=== PATIENT | male | born 1960 | race Caucasian/White ===

== ENCOUNTER 2018-03-22 23:42 | Inpatient (IN) ==
[2018-03-22] MEDS ORDERED: VANCOMYCIN IVPB ONE (23:57)
[2018-03-22] MEDS ORDERED: SODIUM CHLORIDE 0.9% IVPB ONE (23:57)
[2018-03-22] MEDS ORDERED: Piperacillin/Tazobactam 3.375 GM in 0.9 % Sodium Chloride Mini Bag 100 ML IVPB ONE (23:58)
--- NOTE | 2018-03-22 23:58 | Emergency Department Note ---
Disposition Clinical Impression: Bilateral lower leg cellulitis Disposition: Admitted As Inpatient Condition: Good Time of Disposition: 01:42 Extremity Problem HPI - General Chief complaint: ED Skin/Abscess/Foreign Body Stated complaint: "Cellulitis Bilat Legs" Time Seen by Provider: 03/22/18 23:43 Source: patient Mode of arrival: ambulatory Limitations: no limitations Nursing Notes Reviewed: Yes Vital Signs Reviewed: Yes - History of Present Illness HPI Narrative: Patient is a 57-year-old male with recently diagnosed March of any cellulitis. He states that 10 days ago, he started developing redness around the left ankle that spread up the leg. He now has redness on bilateral lower extremities. He was seen at outside facility and was prescribed Bactrim and Keflex. He is taking both of these for around 3 days with no improvement. He did not miss any doses. He was seen by his primary care physician a few days ago and was switched to clindamycin. Is also placed on Lasix. He states that his lower extremity redness, swelling, pain is increasing. Redness has now extended up to his left thigh. Again, he has not missed any doses of clindamycin that he was switched to. Denies any other nausea, vomiting, fevers, diarrhea, abdominal pain, chest pain, shortness of breath. He does note that he had 2 different ultrasounds of bilateral lower extremity is within the past week that were negative for DVT. Pain Scale: 4 - Related Data Home Medications Medication Instructions Recorded Confirmed Budesonide/Formoterol 160/4.5 2 puff IH BIDR 03/23/18 03/23/18 [Symbicort 160/4.5] Ferrous Sulfate [Iron] 325 mg PO DAILY 03/23/18 03/23/18 Furosemide [Lasix] 40 mg PO DAILY 03/23/18 03/23/18 Losartan [Cozaar] 50 mg PO DAILY 03/23/18 03/23/18 Montelukast [Singulair] 10 mg PO DAILY 03/23/18 03/23/18 Omeprazole [PriLOSEC] 20 mg PO DAILY 03/23/18 03/23/18 Potassium Chloride [Klor-Con 10 meq PO DAILY 03/23/18 03/23/18 Sprinkle] Allergies Allergy/AdvReac Type Severity Reaction Status Date / Time No Known Allergies Allergy Verified 11/27/15 22:29 All systems ED: reviewed and negative except as stated. Constitutional: Denies: fever Cardiovascular: Denies: chest pain Respiratory: Denies: cough, dyspnea Gastrointestinal: Denies: abdominal pain, nausea, vomiting Integumentary: Reports: rash Past Medical History - Past Medical History Attestation: Yes The following information was validated with the patient. Medical history: Reports: COPD, hypertension, other Surgical history: Reports: other Psychiatric history: Reports: no psych history - Social History Smoking Status: Never smoker Smokeless Tobacco Status: No Alcohol use: Reports: none Drug use: Reports: none Physical Exam - General Limitations: no limitations General appearance: alert, in no apparent distress - Head Head exam: atraumatic, normocephalic, normal inspection - Eye Eye exam: Present: normal appearance, PERRL, EOMI - ENT ENT exam: normal exam, normal oropharynx, mucous membranes moist - Neck Neck exam: Present: normal inspection, full ROM, trachea midline - Chest Chest inspection: Present: normal inspection, symmetric chest wall rise - Respiratory Respiratory exam: Present: normal lung sounds bilaterally - Cardiovascular Cardiovascular exam: Present: regular rate, normal rhythm, normal heart sounds - Abdominal Exam Abdominal exam: Present: soft, Non-Tender. Absent: tenderness, distention, guarding, rebound, rigidity - Extremities Exam Extremities exam: Present: other (Erythema of bilateral lower extremities; redness extends from toes to distal thigh on left, and toes to mid calf on RLE. There is also some mild weeping on right lower extremity. No Tenderness bilaterally. One small area of 1 cm x 1 cm scabbing on the left anterior wood. No other lesions appreciated on the rest of the lower extremity.) Course Course Narrative: Currently concerned for cellulitis of bilateral lower extremities that is not improving with outpatient antibiotics. We will obtain CBC, BMP, cultures, lactic acid. We will start vancomycin and Zosyn empirically. 01:41 CBC shows no elevation white blood cell count. BMP shows no major abnormalities. Patient was accepted by hospitalist for further care at this time. Vital Signs Temperature 98.1 F 03/22/18 23:43 Pulse Rate 94 03/22/18 23:43 Respiratory Rate 20 03/22/18 23:43 Blood Pressure 188/106 03/22/18 23:43 O2 Sat by Pulse Oximetry 96 03/22/18 23:43 Temperature 98.3 F 03/23/18 02:27 Pulse Rate 81 03/23/18 02:27 Respiratory Rate 15 03/23/18 02:27 Blood Pressure 153/92 03/23/18 02:27 O2 Sat by Pulse Oximetry 97 03/23/18 02:27 Oxygen Delivery Oxygen Delivery Room Air Extremity Problem, Nontraumati - MDM Narrative Medical decision making narrative: Currently concerned for cellulitis of bilateral lower extremities that is not improving with outpatient antibiotics. We will obtain CBC, BMP, cultures, lactic acid. We will start vancomycin and Zosyn empirically. 01:41 CBC shows no elevation white blood cell count. BMP shows no major abnormalities. Patient was accepted by hospitalist for further care at this time. - Medical Records Medical records reviewed: Yes I reviewed the patient's medical records. - Lab Data Lab results reviewed: Yes I reviewed the patient's lab results. Result diagrams: 03/23/18 00:05 03/23/18 00:05 Lab Results 03/23/18 03/23/18 03/23/18 Range/Units 00:05 00:05 00:05 WBC 10.1 (4.3-11.1) K/mcL RBC 4.48 (4.19-5.50) M/mcL Hgb 12.3 L (12.9-16.9) g/dL Hct 36.3 L (37.5-50.1) % MCV 81.0 L (83.0-100.0) fL MCH 27.5 L (28.0-33.3) pg MCHC 33.9 (31.6-35.5) g/dL RDW 14.7 H (11.5-14.5) % Plt Count 373 (140-400) K/mcL MPV 9.7 (9.4-12.4) fL Immature Gran % 1.5 (0-4) % Seg Neutrophils % 59.7 % Lymphocytes % 21.6 % Monocytes % 11.5 % Eosinophils % 5.2 % Basophils % 0.5 % Neutrophils # 6.1 (1.6-8.9) K/mcL Lymphocytes # 2.2 (0.6-4.6) K/mcL Monocytes # 1.2 (0.0-1.3) K/mcL Eosinophils # 0.5 (0.0-0.6) K/mcL Basophils # 0.1 (0.0-0.2) K/mcL Sodium 139 (136-145) mEq/L Potassium 3.6 (3.5-5.1) mEq/L Chloride 104 (98-107) mEq/L Carbon Dioxide 27 (23-29) mEq/L BUN 10 (6-20) mg/dL Creatinine 0.84 (0.70-1.30) mg/dL Est GFR ( Amer) > 60 (> 60) Est GFR (Non-Af Amer) > 60 (> 60) BUN/Creatinine Ratio 12 (6-26) Glucose 131 H (70-105) mg/dL Calculated Osmolality 289 (280-300) Lactic Acid 2.1 (0.5-2.2) mmol/L Calcium 8.9 (8.6-10.3) mg/dL S.B.A.R. - S.B.A.R. Situation: Demographics, MOA Background: Presenting Complaint, Relevant PMH, Meds, & Allergies Assessment: Vital Signs, Course and respsone to treatment, Exam Concerns, Patient/Family Expectation, Pertinant Lab Results Recommendation: Barrier(s) to disposition, Recommendation based on pending studies, treatments, or consults S.B.A.R. Report Given to: Dr. Grigsby Attestation Statement - Attestation Attestation: I examined this patient and my medical decision-making was reviewed with the Resident Physician. I agree with the documented findings, disposition and treatment plan as described except to the extent set forth below. Findings consistent with cellulitis of lower extremities. Patient has progressively worsening cellulitis despite outpatient management. We will start vancomycin and Zosyn admit for further management. X-ray shows no signs of gas.
[2018-03-23 00:20] LABS: Basophils # 0.1 K/mcL (0.0-0.2); Basophils % 0.5 %; Eosinophils # 0.5 K/mcL (0.0-0.6); Eosinophils % 5.2 %; Hematocrit 36.3 % (37.5-50.1); Hemoglobin 12.3 g/dL (12.9-16.9); Immature Granulocytes % 1.5 % (0-4); Lymphocytes # 2.2 K/mcL (0.6-4.6); Lymphocytes % 21.6 %; Mean Corpuscular HGB Conc 33.9 g/dL (31.6-35.5); Mean Corpuscular Hemoglobin 27.5 pg (28.0-33.3); Mean Platelet Volume 9.7 fL (9.4-12.4); Monocytes # 1.2 K/mcL (0.0-1.3); Monocytes % 11.5 %; Neutrophils # 6.1 K/mcL (1.6-8.9); Platelet Count 373 K/mcL (140-400); Red Blood Count 4.48 M/mcL (4.19-5.50); Red Cell Distribution Width 14.7 % (11.5-14.5); Segmented Neutrophils % 59.7 %
[2018-03-23 00:38] LABS: BUN/Creatinine Ratio 12 (6-26); Blood Urea Nitrogen 10 mg/dL (6-20); Calcium 8.9 mg/dL (8.6-10.3); Carbon Dioxide 27 mEq/L (23-29); Chloride 104 mEq/L (98-107); Glucose 131 mg/dL (70-105); Osmolality,Calculated 289 (280-300); Potassium 3.6 mEq/L (3.5-5.1); Sodium 139 mEq/L (136-145); eGFR For African Americans > 60 (> 60); eGFR For Non-African Americans > 60 (> 60)
[2018-03-23] MEDS ORDERED: 0.9 % Sodium Chloride 1,000 ML IVC ONE (01:16)
[2018-03-23] MEDS ORDERED: Naloxone 0.4 MG/ML INJ IVP PRN (01:35)
[2018-03-23] MEDS ORDERED: *HR* Dextrose 50 % in Water (Syg) 50 ML SYRINGE IVP PRN (01:39)
[2018-03-23] MEDS ORDERED: Dextrose Gel 15 GM/37.5 ML TUBE PO PRN ×2 (01:39)
[2018-03-23] MEDS ORDERED: D5% in Water 1,000 ML IVC PRN (01:39)
--- NOTE | 2018-03-23 01:41 | Internal Med History&Physical ---
Date of Encounter: 03/23/18 Time of Encounter: 01:39 Internal Medicine - H&P: HPI Chief complaint: Lower extremity swelling Admitted From: Emergency Dept Plans for Post Hospital Care: Home History of present illness: Mr. Baca is a 57 year old male with history of obesity, hypertension, prediabetes, and asthma who presents with worsening lower extremity edema and redness. The patient was diagnosed with lower extremity cellulitis about 10 days ago and has been through a couple courses of antibiotics including Bactrim , Keflex, clindamycin recently however his erythema persisted and spread. The patient's redness actually started on the left ankle and spread up the leg but he noted that his right lower extremity started having redness as well and it has worsened even more so on the right. The patient says about a couple years ago he had similar a presentation that started on the left lower extremity and spread to the right and at the time and was treated with oral antibiotics. He had multiple visits to [facility] urgent care over the last 10 days and had 2 different ultrasounds the ruled out DVTs of the lower extremities. He denies any fever, chills, nausea, vomiting, blurry vision, chest pain, shortness of breath, abdominal pain, urinary symptoms, or neurological symptoms. In the ED the patient was given IV vancomycin and Zosyn. His initial blood pressure was actually elevated but at the time was seen and was normal. He is also received IV fluids. Past Med Surg Social Fam HX - Past Medical History Medical history: COPD, hypertension, other Psychiatric history: no psych history - Past Surgical History Surgical History: other - Social History Smoking Status: Never smoker Smokeless Tobacco Status: No Alcohol use: none Drug use: none Internal Medicine - H&P: Meds Budesonide/Formoterol 160/4.5 [Symbicort 160/4.5] 2 puff IH BIDR 03/23/18 [ History] Ferrous Sulfate [Iron] 325 mg PO DAILY 03/23/18 [History] Furosemide [Lasix] 40 mg PO DAILY 03/23/18 [History] Losartan [Cozaar] 50 mg PO DAILY 03/23/18 [History] Montelukast [Singulair] 10 mg PO DAILY 03/23/18 [History] Omeprazole [PriLOSEC] 20 mg PO DAILY 03/23/18 [History] Potassium Chloride [Klor-Con Sprinkle] 10 meq PO DAILY 03/23/18 [History] 3 Allergy/AdvReac Type Severity Reaction Status Date / Time No Known Allergies Allergy Verified 09/30/15 22:29 All Systems PM: A 10-system review of systems was performed and is negative for pertinent findings except as documented above in the HPI. Review of systems: All systems reviewed are negative except for as mentioned above - Constitutional Vitals: Temp Pulse Resp BP Pulse Ox 98.1 F 77 20 131/67 98 03/22/18 23:51 03/23/18 01:22 03/23/18 01:22 03/23/18 01:22 03/23/18 01:22 Exam: GEN: NAD HEENT: AT, NC, No cyanosis, oral mucosa is moist, No JVD Lymphatics: No lymphadenoapthy Eyes: Extrocular muscles intact, anicteric CVS:RRR. S1, S2, No m/r/g RESP: CTAB ABD: Obese, Soft, NT, ND, +BS EXT: Bilateral lower extremity swelling. More prominent on the right. Erythema noted on the right lower extremity from the toes all the way up to the knee. No warmth felt. On the left lower extremity mild erythema is noted from the toes and it goes up to the medial distal thigh. There is a small scabbing noted on the left anterior wood. 2+ DP NEURO: Nonfocal, CN II-XII intact, No focal motor or sensory deficits Psych: Cooperative, Not anxious or depressed Internal Med - H&P Results - Labs CBC & Chem 7: 03/23/18 00:05 03/23/18 00:05 - Assessment and plan (1) Cellulitis of both lower extremities Current Visit: Yes Status: Acute Assessment and plan: I have asked the nurses to marked areas to monitor their progression. We will place the patient on vancomycin for now. DVT apparently was ruled out twice at [facility]. Follow-up on blood cultures. Patient is hemodynamically stable. (2) Hypertension Current Visit: Yes Status: Acute Assessment and plan: Resume patient's antihypertensives once verified. IV hydralazine PRN. Qualifiers: Hypertension type: essential hypertension Qualified Code(s): I10 - Essential (primary) hypertension (3) Prediabetes Current Visit: Yes Status: Acute Assessment and plan: Check A1c. We will place the patient on insulin sliding scale and do Accu- Cheks. (4) DVT prophylaxis Current Visit: Yes Status: Acute Assessment and plan: Heparin subcutaneous - Time Spent With Patient Total time spent is greater than 50% in coordination of care (as documented) at patient's floor/unit and/or counseling patient:
[2018-03-23] MEDS: *HR* Heparin 5,000 UNIT/ML VIAL SQ SCH ×3 (05:35→20:48)
[2018-03-23] MEDS: Insulin LISPRO 300 UNITS/3 ML VIAL SQ SCH ×4 (07:43→20:43)
[2018-03-23] MEDS: Budesonide/Formoterol 160/4.5 MDI IH SCH ×2 (10:47→19:54)
[2018-03-23 12:47] LABS: Estimated Average Glucose 154 mg/dl
--- NOTE | 2018-03-24 01:34 | Event Note ---
Date of Encounter: 03/24/18 Time of Encounter: 01:28 Called by the patient's nurse as the patient is developing erythema in the abdomen. I admitted this patient last night for LE cellulitis. He is itching as well. I believe this is a rash. Possibly from abx. He has been receiving vancomycin after admission. Received zosyn in the ED. He has had oral Bactrim, keflex, and clidamycin in the outpatient setting with no issues, but his cellulites was worsening on those. Not sure which one is causing this. His cellulitis is actually worse than what I saw yesterday and seems to be expanding beyond the borders from yesterday. I have asked the nurse to hold the dose of vancomycin for now and to give 25 mg IV benadryl. The patient may need a consult to ID to help out with abx tomorrow. Up to day team to decide on this. I will switch him to IV clindamycin for now.
[2018-03-24 05:40] LABS: Basophils % 0.4 %; Eosinophils # 0.7 K/mcL (0.0-0.6); Eosinophils % 7.6 %; Hematocrit 35.3 % (37.5-50.1); Hemoglobin 11.6 g/dL (12.9-16.9); Immature Granulocytes % 1.5 % (0-4); Lymphocytes # 2.2 K/mcL (0.6-4.6); Lymphocytes % 23.8 %; Mean Corpuscular HGB Conc 32.9 g/dL (31.6-35.5); Mean Corpuscular Hemoglobin 26.8 pg (28.0-33.3); Mean Corpuscular Volume 81.5 fL (83.0-100.0); Monocytes % 10.8 %; Neutrophils # 5.2 K/mcL (1.6-8.9); Platelet Count 350 K/mcL (140-400); Red Blood Count 4.33 M/mcL (4.19-5.50); Red Cell Distribution Width 14.6 % (11.5-14.5); Segmented Neutrophils % 55.9 %
[2018-03-24] MEDS: *HR* Heparin 5,000 UNIT/ML VIAL SQ SCH ×3 (05:51→21:31)
[2018-03-24 06:04] LABS: BUN/Creatinine Ratio 14 (6-26); Blood Urea Nitrogen 11 mg/dL (6-20); Calcium 9.1 mg/dL (8.6-10.3); Carbon Dioxide 24 mEq/L (23-29); Chloride 106 mEq/L (98-107); Glucose 135 mg/dL (70-105); Magnesium 2.1 mg/dL (1.6-2.6); Osmolality,Calculated 289 (280-300); Potassium 3.6 mEq/L (3.5-5.1); Sodium 139 mEq/L (136-145); eGFR For African Americans > 60 (> 60); eGFR For Non-African Americans > 60 (> 60)
[2018-03-24] MEDS: Budesonide/Formoterol 160/4.5 MDI IH SCH ×2 (07:53→22:24)
[2018-03-24] MEDS ORDERED: Clindamycin 900 MG/50 ML 900 MG/50 ML IV.SOLN IVPB SCH (08:00)
[2018-03-24] MEDS: Acetaminophen 325 MG TABLET PO PRN (08:32)
[2018-03-24] MEDS: Insulin LISPRO 300 UNITS/3 ML VIAL SQ SCH ×4 (08:34→21:31)
[2018-03-24] MEDS ORDERED: Bumetanide 1 MG/4 ML VIAL IVP ONE (14:31)
--- NOTE | 2018-03-24 14:35 | Electrocardiograph Report ---
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
--- NOTE | 2018-03-24 14:41 | Internal Med Progress Note ---
Date of Encounter: 03/24/18 Time of Encounter: 14:38 - Assessment and plan (1) Morbid obesity Current Visit: Yes Status: Chronic (2) Cellulitis of both lower extremities Current Visit: Yes Status: Acute Assessment and plan: Patient started back on vancomycin and then discussed with pharmacist and cefepime and discontinue clindamycin (3) Hypertension Current Visit: Yes Status: Chronic Assessment and plan: Chronic now well controlled we will adjust his home medication Qualifiers: Hypertension type: essential hypertension Qualified Code(s): I10 - Essential (primary) hypertension (4) Prediabetes Current Visit: Yes Status: Acute Assessment and plan: Patient likely diabetic - Time Spent With Patient Total time spent is greater than 50% in coordination of care (as documented) at patient's floor/unit and/or counseling patient: - Subjective Interval history: Patient with history of morbid obesity, COPD, hypertension, patient was admitted with lower extremity edema and redness patient has failed outpatient treatment for cellulitis and admitted for IV treatment received vancomycin and Zosyn has some reaction it was not clear whether was Zosyn or Vanco therefore vancomycin and Zosyn was stopped and switched to clindamycin patient is seen today does not feel any better and says leg look same to him decided to start back vancomycin and add cefepime discussed with the pharmacist also Bumex 2 mg for diuresis to decrease the edema and that may help with the healing - Constitutional Vitals: Temp Pulse Resp BP Pulse Ox 98.5 F 87 16 156/81 96 03/24/18 10:49 03/24/18 10:49 03/24/18 10:49 03/24/18 10:49 03/24/18 10:49 General appearance: Present: mild distress - Eye Eye exam: Present: PERRL, conjuntiva pink, sclera anicteric Pupils: Present: PERRL - Neck Neck exam general surgery: Present: supple, trachea midline. Absent: lymphadenopathy - Respiratory Respiratory exam: Present: CTAB. Absent: accessory muscle use, rales, rhonchi, wheezes - Cardiovascular Cardiovascular exam: Present: RRR, +S1, +S2. Absent: diastolic murmur, gallop, rubs, systolic murmur - GI/Abdominal GI/Abdominal exam: Present: normal bowel sounds, soft, no peritoneal signs. Absent: distended, tenderness - Extremities Exam Extremities exam: Present: pedal edema, tenderness, warm Internal Medicine: Result - Labs CBC & Chem 7: 03/24/18 05:03 03/24/18 05:03 Labs: Short CBC 03/24/18 Range/Units 05:03 WBC 9.2 (4.3-11.1) K/mcL Hgb 11.6 L (12.9-16.9) g/dL Hct 35.3 L (37.5-50.1) % Plt Count 350 (140-400) K/mcL Neutrophils # 5.2 (1.6-8.9) K/mcL BMP 03/24/18 05:03 Sodium 139 Potassium 3.6 Chloride 106 Carbon Dioxide 24 BUN 11 Creatinine 0.81 Glucose 135 H Calcium 9.1 Consult Discharge Plan - Plan Referrals: Phuong Bearden MD [Primary Care Provider] -
[2018-03-24] MEDS: Cefepime HCl 2,000 MG in Water for inj. (sterile) 20 ML 20 ML IVP SCH (18:34)
[2018-03-25] MEDS: Acetaminophen 325 MG TABLET PO PRN ×2 (02:45→14:49)
[2018-03-25] MEDS: Cefepime HCl 2,000 MG in Water for inj. (sterile) 20 ML 20 ML IVP SCH (05:15)
[2018-03-25] MEDS: *HR* Heparin 5,000 UNIT/ML VIAL SQ SCH ×3 (05:15→21:35)
[2018-03-25] MEDS: Insulin LISPRO 300 UNITS/3 ML VIAL SQ SCH ×4 (08:02→21:35)
[2018-03-25] MEDS: Budesonide/Formoterol 160/4.5 MDI IH SCH ×2 (10:39→19:59)
[2018-03-25] MEDS ORDERED: Isovue-370 500 ML INFUS..BTL IV ONE (15:10)
--- NOTE | 2018-03-25 15:20 | Internal Med Progress Note ---
Date of Encounter: 03/25/18 Time of Encounter: 15:18 - Assessment and plan (1) Cellulitis of both lower extremities Current Visit: Yes Status: Acute Assessment and plan: Possibility that this is not cellulitis given that he is having symptoms despite several treatments of antibiotics. If this is worsening cellulitis he needs broadened coverage. He does state there was a brief moment of improved symptoms early during this admission. Despite Zosyn being held, symptoms did not improve. DVT apparently was ruled out twice at [facility]. Follow-up on blood cultures. Patient is hemodynamically stable. No leukocytosis - Resume Zosyn, continue vancomycin. - CTA runoff aorta - Consult ID - unsure if this is cellulitis or other etiology - No labs done today. Will get stat CK. Will also obtain CBC, BMP. (2) Hypertension Current Visit: Yes Status: Chronic Assessment and plan: Resume patient's antihypertensives once verified. IV hydralazine PRN. Qualifiers: Hypertension type: essential hypertension Qualified Code(s): I10 - Essential (primary) hypertension (3) Prediabetes Current Visit: Yes Status: Acute Assessment and plan: Check A1c. We will place the patient on insulin sliding scale and do Accu- Cheks. (4) DVT prophylaxis Current Visit: Yes Status: Acute Assessment and plan: Heparin subcutaneous - Time Spent With Patient Total time spent is greater than 50% in coordination of care (as documented) at patient's floor/unit and/or counseling patient: - Subjective Interval history: Patient states erythema worsening. He had some relief from Benadryl. Despite holding Zosyn, patient states symptoms not improving. Denies fevers/chills, n/v. Patient and nursing state that his right foot is especially noted to be darker. - Constitutional Vitals: Temp Pulse Resp BP Pulse Ox 98.1 F 86 14 165/83 97 03/25/18 14:32 03/25/18 14:32 03/25/18 14:32 03/25/18 14:32 03/25/18 14:32 General appearance: Present: mild distress Exam: - Eye Eye exam: Present: PERRL, conjuntiva pink, sclera anicteric Pupils: Present: PERRL - Neck Neck exam general surgery: Present: supple, trachea midline. Absent: lymphadenopathy - Respiratory Respiratory exam: Present: CTAB. Absent: accessory muscle use, rales, rhonchi, wheezes - Cardiovascular Cardiovascular exam: Present: RRR, +S1, +S2. Absent: diastolic murmur, gallop, rubs, systolic murmur - GI/Abdominal GI/Abdominal exam: Present: normal bowel sounds, soft, no peritoneal signs. Absent: distended, tenderness - Extremities Exam Extremities exam: Present: pedal edema, tenderness, warm Internal Medicine: Result - Labs CBC & Chem 7: 03/24/18 05:03 03/24/18 05:03 Consult Discharge Plan - Plan Referrals: Phuong Bearden MD [Primary Care Provider] -
[2018-03-25 15:45] LABS: Basophils # 0.1 K/mcL (0.0-0.2); Basophils % 0.6 %; Eosinophils # 0.7 K/mcL (0.0-0.6); Eosinophils % 7.8 %; Hematocrit 33.7 % (37.5-50.1); Hemoglobin 11.1 g/dL (12.9-16.9); Immature Granulocytes % 1.3 % (0-4); Lymphocytes # 2.4 K/mcL (0.6-4.6); Lymphocytes % 25.9 %; Mean Corpuscular HGB Conc 32.9 g/dL (31.6-35.5); Mean Corpuscular Hemoglobin 27.1 pg (28.0-33.3); Mean Corpuscular Volume 82.2 fL (83.0-100.0); Mean Platelet Volume 9.9 fL (9.4-12.4); Monocytes # 1.1 K/mcL (0.0-1.3); Monocytes % 11.8 %; Neutrophils # 4.8 K/mcL (1.6-8.9); Platelet Count 341 K/mcL (140-400); Red Cell Distribution Width 14.8 % (11.5-14.5); Segmented Neutrophils % 52.6 %
[2018-03-25] MEDS: Piperacillin/Tazobactam 3.375 GM in 0.9 % Sodium Chloride Mini Bag 100 ML IVPB SCH (15:58)
[2018-03-25 16:10] LABS: Alanine Aminotransferase 28 Units/L (7-52); Albumin 3.4 g/dL (3.5-5.7); Alkaline Phosphatase 67 Units/L (34-104); Aspartate Amino Transferase 22 Units/L (13-39); BUN/Creatinine Ratio 15 (6-26); Bilirubin,Total 0.3 mg/dL (0.3-1.0); Blood Urea Nitrogen 14 mg/dL (6-20); Calcium 8.9 mg/dL (8.6-10.3); Carbon Dioxide 27 mEq/L (23-29); Chloride 105 mEq/L (98-107); Creatine Kinase 218 Units/L (30-223); Globulin 3.5 g/dL (2.4-3.5); Glucose 117 mg/dL (70-105); Osmolality,Calculated 290 (280-300); Potassium 3.7 mEq/L (3.5-5.1); Sodium 139 mEq/L (136-145); Total Protein 6.9 g/dL (6.4-8.9); eGFR For African Americans > 60 (> 60); eGFR For Non-African Americans > 60 (> 60)
[2018-03-25] MEDS: Lactobacillus 1 EACH CAP.SPRINK PO SCH (21:34)
[2018-03-26] MEDS: Piperacillin/Tazobactam 3.375 GM in 0.9 % Sodium Chloride Mini Bag 100 ML IVPB SCH ×2 (00:14→09:04)
[2018-03-26] MEDS: *HR* Heparin 5,000 UNIT/ML VIAL SQ SCH ×3 (05:48→20:54)
[2018-03-26 06:41] LABS: Basophils # 0.1 K/mcL (0.0-0.2); Basophils % 0.8 %; Eosinophils # 0.7 K/mcL (0.0-0.6); Eosinophils % 7.8 %; Hematocrit 35.7 % (37.5-50.1); Hemoglobin 11.5 g/dL (12.9-16.9); Immature Granulocytes % 1.4 % (0-4); Lymphocytes # 2.2 K/mcL (0.6-4.6); Lymphocytes % 24.6 %; Mean Corpuscular HGB Conc 32.2 g/dL (31.6-35.5); Mean Corpuscular Hemoglobin 26.4 pg (28.0-33.3); Mean Corpuscular Volume 82.1 fL (83.0-100.0); Mean Platelet Volume 9.9 fL (9.4-12.4); Monocytes % 11.1 %; Neutrophils # 4.8 K/mcL (1.6-8.9); Platelet Count 343 K/mcL (140-400); Red Blood Count 4.35 M/mcL (4.19-5.50); Red Cell Distribution Width 14.8 % (11.5-14.5); Segmented Neutrophils % 54.3 %
[2018-03-26 07:00] LABS: BUN/Creatinine Ratio 14 (6-26); Blood Urea Nitrogen 14 mg/dL (6-20); Calcium 8.9 mg/dL (8.6-10.3); Carbon Dioxide 23 mEq/L (23-29); Chloride 106 mEq/L (98-107); Glucose 116 mg/dL (70-105); Osmolality,Calculated 287 (280-300); Potassium 3.9 mEq/L (3.5-5.1); Sodium 138 mEq/L (136-145); eGFR For African Americans > 60 (> 60); eGFR For Non-African Americans > 60 (> 60)
[2018-03-26] MEDS: Budesonide/Formoterol 160/4.5 MDI IH SCH ×2 (07:45→21:57)
[2018-03-26] MEDS: Insulin LISPRO 300 UNITS/3 ML VIAL SQ SCH ×4 (08:31→21:03)
[2018-03-26] MEDS: Lactobacillus 1 EACH CAP.SPRINK PO SCH ×2 (09:05→20:54)
--- NOTE | 2018-03-26 09:53 | Internal Med Progress Note ---
Date of Encounter: 03/26/18 Time of Encounter: 09:53 - Assessment and plan (1) Cellulitis of both lower extremities Current Visit: Yes Status: Acute Assessment and plan: Possibility that this is not cellulitis given that he is having symptoms despite several treatments of antibiotics. If this is worsening cellulitis he needs broadened coverage. He does state there was a brief moment of improved symptoms early during this admission. Despite Zosyn being held, symptoms did not improve. DVT apparently was ruled out twice at [facility]. Follow-up on blood cultures. Currently negative. Patient is hemodynamically stable. No leukocytosis. CT runoff of aorta showed cellulitis of knees and increased severity in calves. Vascular green it was unremarkable other than non-opacification of anterior tibial artery - Continue Zosyn (resumed 03/25), continue vancomycin. Will slow infusion rate of Vancomycin in case patient having reaction to that. Continue Benadryl. - No labs done today. Will get stat CK. Will also obtain CBC, BMP. - May need Vascular consultation. - ID consulted, recommendations appreciated. (2) Hypertension Current Visit: Yes Status: Chronic Assessment and plan: Losartan. IV hydralazine PRN. Qualifiers: Hypertension type: essential hypertension Qualified Code(s): I10 - Essential (primary) hypertension (3) Prediabetes Current Visit: Yes Status: Acute Assessment and plan: A1C is 7.0% by definition patient is diabetic, will need follow-up in regard with this. (4) DVT prophylaxis Current Visit: Yes Status: Acute Assessment and plan: Heparin SQ - Time Spent With Patient Total time spent is greater than 50% in coordination of care (as documented) at patient's floor/unit and/or counseling patient: - Subjective Interval history: Patient states erythema worsening. He had some relief from Benadryl. Despite holding Zosyn, patient states symptoms not improving. Patient states his legs are feeling better. States right foot is looking better but left leg is starting to have more erythema, but less tenderness than yesterday. Denies fevers/chills, n/v. He states Benadryl relieves itching. He admits to scratching his legs. - Constitutional Vitals: Temp Pulse Resp BP Pulse Ox 98.7 F 75 16 129/65 95 03/26/18 07:11 03/26/18 07:11 03/26/18 07:47 03/26/18 07:11 03/26/18 07:47 General appearance: Present: mild distress - Head Head exam: Present: atraumatic, normocephalic - Eye Eye exam: Present: PERRL, conjuntiva pink, sclera anicteric Pupils: Present: PERRL - Neck Neck exam general surgery: Present: supple, trachea midline. Absent: lymphadenopathy - Respiratory Respiratory exam: Present: CTAB. Absent: accessory muscle use, rales, rhonchi, wheezes - Cardiovascular Cardiovascular exam: Present: RRR, +S1, +S2. Absent: diastolic murmur, gallop, rubs, systolic murmur - GI/Abdominal GI/Abdominal exam: Present: normal bowel sounds, soft, no peritoneal signs. Absent: distended, tenderness - Extremities Exam Extremities exam: Present: warm, radial pulses palpable and symmetrical. Absent : calf tenderness, cyanotic, pedal edema - Neurological Exam Neurological exam: Present: CN II-XII intact, oriented X3, no focal deficits. Absent: pronater drift, facial droop, speech deficit - Skin Skin exam: Present: dry, erythema, intact, rash, warm Internal Medicine: Result - Labs CBC & Chem 7: 03/26/18 06:16 03/26/18 06:16 Labs: Short CBC 03/25/18 03/26/18 Range/Units 15:28 06:16 WBC 9.1 8.8 (4.3-11.1) K/mcL Hgb 11.1 L 11.5 L (12.9-16.9) g/dL Hct 33.7 L 35.7 L (37.5-50.1) % Plt Count 341 343 (140-400) K/mcL Neutrophils # 4.8 4.8 (1.6-8.9) K/mcL BMP 03/25/18 03/26/18 15:28 06:16 Sodium 139 138 Potassium 3.7 3.9 Chloride 105 106 Carbon Dioxide 27 23 BUN 14 14 Creatinine 0.92 0.98 Glucose 117 H 116 H Calcium 8.9 8.9 Liver Function 03/25/18 Range/Units 15:28 Total Bilirubin 0.3 (0.3-1.0) mg/dL AST 22 (13-39) Units/L ALT 28 (7-52) Units/L Alkaline Phosphatase 67 (34-104) Units/L Albumin 3.4 L (3.5-5.7) g/dL - Impressions Impressions Aorta w/Runoff CTA 03/25/18 15:10 IMPRESSION: 1. Skin thickening and cellulitis beginning in the distal thigh extending to the knees and increasing in severity in the bilateral calves. No organized or drainable fluid collection is identified. 2. Vascular evaluation is unremarkable except for the right leg, where there is non opacification of the anterior tibial artery. Distal reconstitution of vessels identified just above the ankle mortise. Three-vessel runoff to the left foot is identified. 3. Small pulmonary nodule in the posterior basal right lower lobe. If the patient is at a low risk for lung cancer, no further evaluation is warranted. If the patient is a smoker, nonemergent CT of the chest may be considered. D/ / Edward Nguyen / Edward Nguyen Interpreting Provider: Edward Nguyen Chest X-Ray 03/25/18 20:08 IMPRESSION: No acute process. D/ / Juan Manuel Womack MD / Juan Manuel Womack MD Interpreting Provider: Juan Manuel Womack MD Consult Discharge Plan - Plan Instructions: Hyperglycemia, Non-Diabetic (GEN) Referrals: Phuong Bearden MD [Primary Care Provider] -
--- NOTE | 2018-03-26 11:12 | Infectious Disease Consult ---
Date of Encounter: 03/26/18 Time of Encounter: 10:53 Assessment and Plan (1) Rash Status: Acute Assessment and plan: At this point it is unclear if there is an infectious cause of the patient's skin changes On his bilateral lower extremities he does have erythema and induration but is without pain, significant leukocytosis, or fever His diffuse rash that is present on his proximal legs, abdomen, and arms appears to be more reactive in nature and may be a reaction to medication Blood cultures 2 sets are no growth to date Had been treated as an outpatient with antibiotics that appears to include Keflex and other unknown antibiotics Discontinue antibiotics and observe I have asked nursing staff to ronal the area of erythema on his lower extremities Agree with vascular surgery evaluation. Recommend dermatology consultation (2) Type 2 diabetes mellitus Status: Acute Assessment and plan: Hemoglobin A1c 7.0. Not on any treatment at home. Further management per primary. Qualifiers: Diabetes mellitus termination clerk insulin use: without termination clerk use Diabetes mellitus complication status: without complication Qualified Code(s): E11.9 - Type 2 diabetes mellitus without complications (3) Asthma Status: Acute Assessment and plan: Stable. Further management per primary Qualifiers: Asthma severity: unspecified severity Asthma persistence: unspecified Asthma complication type: uncomplicated Qualified Code(s): J45.909 - Unspecified asthma, uncomplicated (4) GERD (gastroesophageal reflux disease) Status: Acute Qualifiers: Esophagitis presence: esophagitis presence not specified Qualified Code(s) : K21.9 - Gastro-esophageal reflux disease without esophagitis (5) Hypertension Status: Chronic Qualifiers: Hypertension type: essential hypertension Qualified Code(s): I10 - Essential (primary) hypertension (6) Morbid obesity Status: Chronic Infectious Disease HPI - Data of Consult Patient: new to practice Consult date: 03/26/18 Requesting Physician: Judith Casper MD Primary Care Provider: Phuong Thomas - Consult Narrative Reason for consult: Cellulitis History of present illness: Mr. Baca is a 57 year old male with history of hypertension, asthma, GERD , chronic DVT. Patient was admitted on March 23 with bilateral lower extremity swelling. Infectious disease was consulted on March 25 due to concerns for cellulitis. Patient is 57-year-old male with history as stated above. Patient states that approximately 2 weeks ago he developed redness and itching of his lower extremities bilaterally. At that time he presented to the [facility] emergency department and was given Keflex and discharge. He states he took this for about 4 days and did not get any better so he went to his PCP who gave him another antibiotic which he does not know what this was. Again he did not respond well to this so he presented to our emergency department. Patient states that his symptoms have fluctuated during his hospital stay. He states he has had a rash on his lower extremities that has spread up his legs and stomach and chest and onto his arms. He reports this is itchy but not painful. He feels this rash is fluctuated during his hospital stay. He denies fever or chills throughout this entire illness. He reports that he had cellulitis in the past that was treated with an unknown antibiotic and cleared up. He denies any breaks in the skin other than some excoriations caused by him itching after this developed. He reports that just prior to his symptoms developing he was in his garage working on a car and afterwards noticed that a tick was attached to his neck and one was crawling up his arm. Patient denies any new medications. He does not smoke, or drink alcohol. He denies any recent travel or sick contacts. He denies being outdoors much recently. He reports no allergies or history of allergies. He reports having one dog at home. CC: Judith Casper MD Past Med Surg Social Fam HX - Past Medical History Medical history: COPD, hypertension, other Psychiatric history: no psych history - Past Surgical History Surgical History: other - Social History Smoking Status: Never smoker Smokeless Tobacco Status: No Alcohol use: none Drug use: none Infectious Disease-CN:Meds Albuterol Sulfate [Proair Hfa] 2 puff IH Q4-6H PRN 03/23/18 [History] Budesonide/Formoterol 160/4.5 [Symbicort 160/4.5] 2 puff IH BIDR 03/23/18 [ History] Ferrous Sulfate [Iron] 325 mg PO DAILY 03/23/18 [History] Furosemide [Lasix] 40 mg PO DAILY 03/23/18 [History] Losartan [Cozaar] 50 mg PO DAILY 03/23/18 [History] Montelukast [Singulair] 10 mg PO DAILY 03/23/18 [History] Omeprazole [PriLOSEC] 20 mg PO DAILY 03/23/18 [History] Potassium Chloride [Klor-Con Sprinkle] 10 meq PO DAILY 03/23/18 [History] 3 Allergy/AdvReac Type Severity Reaction Status Date / Time No Known Allergies Allergy Verified 09/30/15 22:29 - Constitutional Constitutional: Absent: chills, fever(s) - EENT Eyes: Absent: itchy eyes Nose, mouth and throat: Absent: dizziness, sore throat - Cardiovascular Cardiovascular: Present: edema. Absent: chest pain, irregular heart rhythm - Respiratory Respiratory: Absent: cough, dyspnea - Gastrointestinal Gastrointestinal: Absent: abdominal pain, diarrhea, nausea, vomiting - Musculoskeletal Musculoskeletal: Absent: arthralgias, myalgias - Integumentary Integumentary: Present: changing lesions, erythema, pruritus, rash, sores, wounds. Absent: non-healing lesions, skin ulcer, jaundice - Neurological Neurological: Absent: dizziness, focal weakness - Psychiatric Psychiatric: Absent: anxiety, depression - Endocrine Endocrine: Absent: polydipsia, polyuria - Allergic/Immunologic Allergic/Immunologic: Absent: tongue swelling, throat swelling, uticaria Exam - Constitutional Vitals: Temp Pulse Resp BP Pulse Ox 98.7 F 75 16 129/65 95 03/26/18 07:11 03/26/18 07:11 03/26/18 07:47 03/26/18 07:11 03/26/18 07:47 - Head Head exam: Present: atraumatic, normal inspection, normocephalic - Eye Eye exam: Present: EOMI, normal appearance, PERRL - Neck Neck exam: Present: full ROM - Respiratory Respiratory exam: Present: CTAB. Absent: rales, rhonchi, wheezes - Cardiovascular Cardiovascular exam: Present: RRR. Absent: diastolic murmur, systolic murmur - GI/Abdominal GI/Abdominal exam: Present: normal bowel sounds, soft. Absent: distended, tenderness - Extremities Exam Extremities exam: Present: pedal edema (trace). Absent: tenderness - Neurological Exam Neurological exam: Present: alert, oriented X3, no focal deficits - Psychiatric Psychiatric exam: Present: normal affect, normal mood - Skin Additional comments: Patient has erythema starting distally his toes extending proximally to the area just below his knees bilaterally. there are sharp demarcation bilaterally, and there is induration noted to this area. There is mild increased warmth in this area. Patient is also noted to have patchy macular rash that is present on the lower extremities bilaterally, mainly proximal to the patient's distal skin changes. This rash is also on the stomach as well as the upper arms. There is no discrete ulceration or drainage. Infectious Disease CN: Results - Labs CBC & Chem 7: 03/26/18 06:16 03/26/18 06:16 Consult Discharge Plan - Plan Instructions: Hyperglycemia, Non-Diabetic (GEN) Referrals: Phuong Bearden MD [Primary Care Provider] - - Attending Attestation I examined this patient and my medical decision-making was reviewed with the Resident Physician. I agree with the documented findings, disposition and treatment plan as described except to the extent set forth below. This is an addendum to original report dictated by resident physician. Please refer to resident's note for full detail. Patient is a 57-year-old gentleman with past medical history mentioned below stated that 2 weeks ago he was having swelling and erythema in his lower extremities bilaterally. Patient went to the ER and they just gave him Lasix and sent him home. Patient went to an urgent care the given Keflex and then he went to his primary care doctor and they gave him Bactrim. He is not 100% sure of the names of the antibiotics but he thinks this was. Patient never had any fevers or chills just the swelling and the erythema that was bilateral. Patient came here where he was given vancomycin and Zosyn in the emergency department and then admitted for further workup and evaluation. Since admission patient was switched to vancomycin and cefepime but the patient's erythema and swelling did not improve. Patient and nursing staff in the room tell me that he actually was not doing much better. Patient started having a diffuse maculopapular rash that looks like an allergic reaction all over his body including his torso chest abdomen back arms area patient stated that it was pretty pruritic. At this point I am not really sure what is exactly going on. I do believe that the patient has some sort of venous stasis bilaterally not the bilateral lower extremities are pretty erythematosus, very warm to touch and look cellulitic. But with a rash that is going on which I think is a drug rash I am concerned to restart the vancomycin and Zosyn. At this point I will put the patient to combination of Bactrim and levofloxacin. Aggressive treatment of the rash with Benadryl and steroids per the primary team. Patient also might need Zyrtec plus an histamine marty likes amantadine or ranitidine. I will defer that to the primary team. In the meantime we will continue to monitor closely and see if he progresses.
[2018-03-26] MEDS ORDERED: Aminoglycoside Consult 1 EACH MC ONE (18:54)
[2018-03-26] MEDS: Levofloxacin 750 MG/150 ML 750 MG/150 ML BAG IVPB SCH (20:53)
[2018-03-27] MEDS: Sulfamethoxazole/Trimeth 10 ML in D5% in Water 500 ML IVPB SCH ×2 (05:31→17:19)
[2018-03-27] MEDS: *HR* Heparin 5,000 UNIT/ML VIAL SQ SCH ×3 (05:32→21:31)
[2018-03-27] MEDS: Budesonide/Formoterol 160/4.5 MDI IH SCH ×2 (07:34→20:26)
[2018-03-27] MEDS: Insulin LISPRO 300 UNITS/3 ML VIAL SQ SCH ×4 (07:59→21:31)
[2018-03-27] MEDS: Lactobacillus 1 EACH CAP.SPRINK PO SCH ×2 (08:01→21:31)
[2018-03-27 08:14] LABS: Basophils # 0.1 K/mcL (0.0-0.2); Basophils % 0.6 %; Eosinophils # 0.7 K/mcL (0.0-0.6); Eosinophils % 8.6 %; Hemoglobin 12.4 g/dL (12.9-16.9); Immature Granulocytes % 1.1 % (0-4); Lymphocytes # 2.2 K/mcL (0.6-4.6); Lymphocytes % 26.8 %; Mean Corpuscular HGB Conc 31.8 g/dL (31.6-35.5); Mean Corpuscular Hemoglobin 26.1 pg (28.0-33.3); Mean Corpuscular Volume 81.9 fL (83.0-100.0); Mean Platelet Volume 9.9 fL (9.4-12.4); Monocytes # 0.8 K/mcL (0.0-1.3); Monocytes % 9.9 %; Neutrophils # 4.4 K/mcL (1.6-8.9); Platelet Count 382 K/mcL (140-400); Red Blood Count 4.76 M/mcL (4.19-5.50)
[2018-03-27] MEDS ORDERED: Furosemide 20 MG/2 ML VIAL IVP ONE (08:49)
--- NOTE | 2018-03-27 08:54 | Internal Med Progress Note ---
Date of Encounter: 03/27/18 Time of Encounter: 08:50 - Assessment and plan (1) Skin rash Current Visit: Yes Status: Acute Assessment and plan: Has two locations of rash; lower extremities and also upper torso and arm. Unsure if lower extremity rash this is true cellulitis versus other process such as venous stasis related or allergic reaction or other We will continue antibiotics, ID following and recommendations appreciated. Antihistamines as patient getting some what relief in his torso/upper body region. Add pepcid Solu Medrol in case this is other type of reaction. Dermatology consulted, recommendations apprecaited (2) Cellulitis of both lower extremities Current Visit: Yes Status: Acute Assessment and plan: Possibility that this is not cellulitis given that he is having symptoms despite several treatments of antibiotics. If this is worsening cellulitis he needs broadened coverage. He does state there was a brief moment of improved symptoms early during this admission. Despite Zosyn being held, symptoms did not improve. DVT apparently was ruled out twice at [facility]. Blood cultures negative Patient is hemodynamically stable, no leukocytosis CT runoff of aorta showed cellulitis of knees and increased severity in calves. Vascular green it was unremarkable other than non-opacification of anterior tibial artery - May need Vascular consultation. - ID consulted, recommendations appreciated. (3) Hypertension Current Visit: Yes Status: Chronic Assessment and plan: Losartan. IV hydralazine PRN. Qualifiers: Hypertension type: essential hypertension Qualified Code(s): I10 - Essential (primary) hypertension (4) Type 2 diabetes mellitus Current Visit: Yes Status: Acute Assessment and plan: A1C was 7.0% on admission, meets criteria. Currently glucose <180. Continue diabetic diet and ISS. Qualifiers: Diabetes mellitus press machine feeder insulin use: without fpc use Diabetes mellitus complication status: without complication Qualified Code(s): E11.9 - Type 2 diabetes mellitus without complications (5) DVT prophylaxis Current Visit: Yes Status: Acute Assessment and plan: Heparin SQ - Time Spent With Patient Total time spent is greater than 50% in coordination of care (as documented) at patient's floor/unit and/or counseling patient: - Subjective Interval history: Rash better in legs and abdomen today. Denies fevers/chills, n./v - Constitutional Vitals: Temp Pulse Resp BP Pulse Ox 98.3 F 77 17 118/97 95 03/27/18 07:17 03/27/18 07:17 03/27/18 07:36 03/27/18 07:17 03/27/18 08:34 General appearance: Present: mild distress - Head Head exam: Present: atraumatic, normocephalic - Eye Eye exam: Present: PERRL, conjuntiva pink, sclera anicteric Pupils: Present: PERRL - Neck Neck exam general surgery: Present: supple, trachea midline. Absent: lymphadenopathy - Respiratory Respiratory exam: Present: CTAB. Absent: accessory muscle use, rales, rhonchi, wheezes - Cardiovascular Cardiovascular exam: Present: RRR, +S1, +S2. Absent: diastolic murmur, gallop, rubs, systolic murmur - GI/Abdominal GI/Abdominal exam: Present: normal bowel sounds, soft, no peritoneal signs. Absent: distended, tenderness - Extremities Exam Extremities exam: Present: pedal edema, warm, radial pulses palpable and symmetrical. Absent: calf tenderness, cyanotic - Neurological Exam Neurological exam: Present: CN II-XII intact, oriented X3, no focal deficits. Absent: pronater drift, facial droop, speech deficit - Skin Skin exam: Present: dry, intact Additional comments: Rash in lower extremity slightly less erythematous today compared to yesterday exam truncal rash present about same since yesterday Internal Medicine: Result - Labs CBC & Chem 7: 03/27/18 07:23 03/26/18 06:16 Labs: Short CBC 03/27/18 Range/Units 07:23 WBC 8.3 (4.3-11.1) K/mcL Hgb 12.4 L (12.9-16.9) g/dL Hct 39.0 (37.5-50.1) % Plt Count 382 (140-400) K/mcL Neutrophils # 4.4 (1.6-8.9) K/mcL Consult Discharge Plan - Plan Instructions: Hyperglycemia, Non-Diabetic (GEN) Referrals: Phuong Bearden MD [Primary Care Provider] -
[2018-03-27] MEDS: Famotidine 20 MG/2 ML VIAL IVP SCH ×2 (09:06→18:00)
[2018-03-27] MEDS: MethylPREDNISolone 40 MG/ML VIAL IVP SCH ×2 (09:07→18:00)
[2018-03-27 09:54] LABS: BUN/Creatinine Ratio 15 (6-26); Blood Urea Nitrogen 13 mg/dL (6-20); Calcium 9.4 mg/dL (8.6-10.3); Carbon Dioxide 24 mEq/L (23-29); Chloride 102 mEq/L (98-107); Glucose 152 mg/dL (70-105); Osmolality,Calculated 283 (280-300); Sodium 135 mEq/L (136-145); eGFR For African Americans > 60 (> 60); eGFR For Non-African Americans > 60 (> 60)
--- NOTE | 2018-03-27 11:07 | Vascular/Endovasc Consult Note ---
Date of Encounter: 03/27/18 Time of Encounter: 11:04 Assessment and Plan (1) Cellulitis of both lower extremities Current Visit: Yes Status: Acute Bilateral lower extremity cellulitis. There may be a component of venous insufficiency to his skin changes and pain. Therefore I recommended that he undergo bilateral lower extremity venous testing with reflux. (2) Morbid obesity Current Visit: Yes Status: Chronic Patient is morbidly obese (3) Rash Current Visit: Yes Status: Acute Bilateral skin rash. Patient is being seen by dermatology. (4) PAD (peripheral artery disease) Current Visit: Yes Status: Acute Patient has isolated right anterior tibial artery occlusion. The remaining vessels appear to be normal. I do not recommend further evaluation or workup or angiography for this lesion. - History of Present Illness Consult date: 03/27/18 Consult reason: Bilateral lower extremity swelling and pain Chief complaint: Bilateral lower extremity swelling and pain History of present illness: Mr. Baca is a 57 year old male Who was admitted to the hospital for lower extremities swelling and redness and pain and itching. He had been at another facility in the ER about 2-1/2 weeks ago. He was prescribed antibiotic therapy. He did not respond to oral antibiotics. He came to [place] for further evaluation and was admitted. He states that he had noticed some discomfort in the lower extremities and then about 2 weeks ago developed significant swelling such that he had difficulty putting on his shoes. He went on to develop redness and itching of the lower extremities. He has not had a similar process to this before. He does have a history of a right popliteal vein deep venous thrombosis. This was diagnosed in March 2016 and he was placed on Coumadin therapy for over a year. In September 2016 he had a follow-up venous scan performed at [facility]. This demonstrated chronic right popliteal DVT. The patient does have compression stockings. He had been wearing them because of the increased swelling and discomfort he has been unable to wear them for the past 2 weeks. He states that the discomfort and swelling and itching is equal between the 2 lower extremities. As part of his evaluation he had a CT angiogram performed which revealed a previously unsuspected right anterior tibial artery occlusion. He has no other significant arterial findings. He has changes of the soft tissue consistent with cellulitis. Past Med Surg Social Fam HX - Past Medical History Medical history: COPD, DVT (Right popliteal vein), hypertension, other Psychiatric history: no psych history - Past Surgical History Surgical History: other - Social History Smoking Status: Never smoker Smokeless Tobacco Status: No Alcohol use: none Drug use: none Medications and Allergies Albuterol Sulfate [Proair Hfa] 2 puff IH Q4-6H PRN 03/23/18 [History] Budesonide/Formoterol 160/4.5 [Symbicort 160/4.5] 2 puff IH BIDR 03/23/18 [ History] Ferrous Sulfate [Iron] 325 mg PO DAILY 03/23/18 [History] Furosemide [Lasix] 40 mg PO DAILY 03/23/18 [History] Losartan [Cozaar] 50 mg PO DAILY 03/23/18 [History] Montelukast [Singulair] 10 mg PO DAILY 03/23/18 [History] Omeprazole [PriLOSEC] 20 mg PO DAILY 03/23/18 [History] Potassium Chloride [Klor-Con Sprinkle] 10 meq PO DAILY 03/23/18 [History] 3 Allergy/AdvReac Type Severity Reaction Status Date / Time No Known Allergies Allergy Verified 09/30/15 22:29 All Systems Review: The remainder of the systems were reviewed and are negative Exam Vital Signs, Last 4 Hours Temp Pulse Resp BP Pulse Ox 03/27/18 08:34 95 03/27/18 07:36 17 95 03/27/18 07:17 98.3 F 77 16 118/97 96 General: Present: Conversant, No Apparent Distress, Well developed, Well nourished, Other (Obese white male) HEENT: Present: Atraumatic, Normocephaly, Trachea midline Neck: Absent: JVD Neuro: Present: Alert and responsive, No focal deficits noted, Cranial nerves grossly intact Abdomen: Present: Soft. Absent: Masses Vascular: Present: Normal capillary refill, Pulse, absent (Secondary to edema of the feet and ankle region.), Edema (Bilateral lower extremity edema extending to the calf and thighs.), Color/Temperature (Patient has a diffuse erythematous rash-type presentation of the skin. This extends in the calf and as well as into the thigh regions bilaterally. He has no active ulcerations. There is tenderness to manipulation of the calf along the areas of the erythematous change.). Absent: Amputation(s) Consult Discharge Plan - Plan Instructions: Hyperglycemia, Non-Diabetic (GEN) Referrals: Phuong Bearden MD [Primary Care Provider] -
--- NOTE | 2018-03-27 13:24 | Infectious Disease Progress No ---
Date of Encounter: 03/27/18 Time of Encounter: 13:22 - Assessment and Plan (1) Bilateral lower leg cellulitis Current Visit: Yes Status: Acute Erythema, warmth, and edema noted to the BLE. Etiology unclear. Clinically, this does appear to be cellulitis, but bilateral cellulitis is very unlikely. Additionally, the patient had no change in his symptoms despite outpatient oral antibiotics. No significant leukocytosis or fever. Blood cultures are NGTD x 2 sets. Clinically improved per patient reports. There is also likely an element of venous stasis/PAD contributing to the patient 's symptoms. Continue Bactrim IV. Continue Levaquin IV. Duration of treatment depends on the clinical picture. The patient is currently on day 4 of treatment. Will likely be able to transition to PO antibiotics when ready for discharge. Monitor renal function and dose-adjust antibiotics. (2) Rash Current Visit: Yes Status: Acute Location: Lower abdomen and upper aspects of BLE. Erythematous, macular, itchy. Etiology unclear: drug rash vs. other. Dermatology to evaluate. Continue supportive care per the primary team. (3) Hypertension Current Visit: Yes Status: Chronic Qualifiers: Hypertension type: essential hypertension Qualified Code(s): I10 - Essential (primary) hypertension (4) Morbid obesity Current Visit: Yes Status: Chronic (5) Type 2 diabetes mellitus Current Visit: Yes Status: Acute Controlled. HgbA1C 7%. Recommend aggressive glucose monitoring and control to promote wound healing and prevent re-infection. Management per the primary team. Qualifiers: Diabetes mellitus termite control technician insulin use: without termite control technician use Diabetes mellitus complication status: without complication Qualified Code(s): E11.9 - Type 2 diabetes mellitus without complications (6) PAD (peripheral artery disease) Current Visit: Yes Status: Acute Vascular surgery consulted. Await recommendations. - Subjective Interval history: Patient seen and examined. No acute events noted overnight. Patient states overall he feels much better today. Reports some nausea this morning, but that seems to have resolved. Denies any fevers or chills or rigors. Denies any chest pain, shortness of breath, or cough. Denies any vomiting or diarrhea. Denies abdominal pain, urinary complaints, or appetite changes. Denies oral thrush. States he thinks his rash is better. Reports improved pain to the bilateral lower extremities and reports that the erythema seems to be markedly improved as well. Infect Dis PN-Objective Data - Labs CBC & Chem 7: 03/27/18 07:23 03/27/18 07:23 Labs: Laboratory Results - last 24 hr 03/26/18 03/26/18 03/26/18 13:51 16:28 21:02 WBC RBC Hgb Hct MCV MCH MCHC RDW Plt Count MPV Immature Gran % Seg Neutrophils % Lymphocytes % Monocytes % Eosinophils % Basophils % Neutrophils # Lymphocytes # Monocytes # Eosinophils # Basophils # Sodium Potassium Chloride Carbon Dioxide BUN Creatinine Est GFR ( Amer) Est GFR (Non-Af Amer) BUN/Creatinine Ratio Glucose POC Glucose 129 H 145 H Calculated Osmolality Calcium Vancomycin Trough 12 H 03/27/18 03/27/18 03/27/18 07:12 07:23 07:23 WBC 8.3 RBC 4.76 Hgb 12.4 L Hct 39.0 MCV 81.9 L MCH 26.1 L MCHC 31.8 RDW 15.0 H Plt Count 382 MPV 9.9 Immature Gran % 1.1 Seg Neutrophils % 53.0 Lymphocytes % 26.8 Monocytes % 9.9 Eosinophils % 8.6 Basophils % 0.6 Neutrophils # 4.4 Lymphocytes # 2.2 Monocytes # 0.8 Eosinophils # 0.7 H Basophils # 0.1 Sodium 135 L Potassium 4.0 Chloride 102 Carbon Dioxide 24 BUN 13 Creatinine 0.88 Est GFR ( Amer) > 60 Est GFR (Non-Af Amer) > 60 BUN/Creatinine Ratio 15 Glucose 152 H POC Glucose 140 H Calculated Osmolality 283 Calcium 9.4 Vancomycin Trough 03/27/18 11:24 WBC RBC Hgb Hct MCV MCH MCHC RDW Plt Count MPV Immature Gran % Seg Neutrophils % Lymphocytes % Monocytes % Eosinophils % Basophils % Neutrophils # Lymphocytes # Monocytes # Eosinophils # Basophils # Sodium Potassium Chloride Carbon Dioxide BUN Creatinine Est GFR ( Amer) Est GFR (Non-Af Amer) BUN/Creatinine Ratio Glucose POC Glucose 135 H Calculated Osmolality Calcium Vancomycin Trough Exam - Constitutional Vitals: Temp Pulse Resp BP Pulse Ox 98.8 F 78 16 123/56 93 03/27/18 11:26 03/27/18 11:26 03/27/18 11:26 03/27/18 11:26 03/27/18 11:26 General appearance: cooperative, morbidly obese, no acute distress - Head Head exam: Present: atraumatic, normal inspection, normocephalic - Eye Eye exam: Present: EOMI, normal appearance, PERRL Pupils: Present: normal accommodation - ENT ENT exam: Present: mucous membranes moist - Neck Neck exam: Present: normal inspection - Respiratory Respiratory exam: Present: CTAB. Absent: rales, respiratory distress, rhonchi, wheezes - Cardiovascular Cardiovascular exam: Present: RRR, +S1, +S2 - GI/Abdominal GI/Abdominal exam: Present: distended, normal bowel sounds, soft. Absent: tenderness - Extremities Exam Extremities exam: Present: calf tenderness, pedal edema (1+ bilateral lower extremities), tenderness (Mild, bilateral lower extremities) Additional comments: Erythema noted to the bilateral lower wood base. Nontender. No warmth. No open lesions. - Neurological Exam Neurological exam: Present: alert, oriented X3, no focal deficits - Psychiatric Psychiatric exam: Present: normal affect, normal mood - Skin Skin exam: Present: dry, intact, normal color, rash (Flat, macular, erythematous rash noted to the lower abdomen, groin, and upper aspects of bilateral lower extremities), warm Consult Discharge Plan - Plan Instructions: Hyperglycemia, Non-Diabetic (GEN) Referrals: Phuong Bearden MD [Primary Care Provider] - - Attending Attestation I examined this patient and my medical decision-making was reviewed with the Resident Physician. I agree with the documented findings, disposition and treatment plan as described except to the extent set forth below.
[2018-03-27] MEDS: Levofloxacin 750 MG/150 ML 750 MG/150 ML BAG IVPB SCH (15:45)
--- NOTE | 2018-03-27 17:00 | Dermatology Consult Note ---
Date of Encounter: 03/27/18 Time of Encounter: 10:30 History of Present Illness Reason for Consult: rash History of Present Illness: Cam Baca, is a 57-year-old male here for suspected cellulitis of the lower extremities. He has recently been treated with antibiotics with little help and has had negative Doppler ultrasounds at a different facility. He reports that the ultrasounds were negative for DVT. He does have a past DVT history on the right lower extremity. He reports that about 2 weeks ago he noticed redness starting in the lower legs. It is slowly worked its way up his leg. He has mild intermittent itching. He has mild intermittent tenderness to touch. He reports that his legs feel tired and sore to touch. He denies fevers and chills. Review of Systems Additional Comments: General/Constitutional: Patient denies fevers, chills, no recent unintended weight loss, night sweats, no change in appetite or malaise.. Hematology: Patient denies new or enlarging lumps or bumps.. Skin: Patient denies new or changing moles, or rash other than what is mentioned above.. General/Constitutional: Patient denies fevers, chills, nor recent unintended weight loss, night sweats, no change in appetite or malaise. Hematologic: Patient denies new or enlarging lumps or bumps. Skin: Patient denies new or changing moles, or rash other than what is mentioned above. Past Med Surg Social Fam HX - Past Medical History Medical history: COPD, DVT (Right popliteal vein), hypertension, other Psychiatric history: no psych history - Past Surgical History Surgical History: other - Social History Smoking Status: Never smoker Smokeless Tobacco Status: No Alcohol use: none Drug use: none Medications and Allergies Albuterol Sulfate [Proair Hfa] 2 puff IH Q4-6H PRN 03/23/18 [History] Budesonide/Formoterol 160/4.5 [Symbicort 160/4.5] 2 puff IH BIDR 03/23/18 [ History] Ferrous Sulfate [Iron] 325 mg PO DAILY 03/23/18 [History] Furosemide [Lasix] 40 mg PO DAILY 03/23/18 [History] Losartan [Cozaar] 50 mg PO DAILY 03/23/18 [History] Montelukast [Singulair] 10 mg PO DAILY 03/23/18 [History] Omeprazole [PriLOSEC] 20 mg PO DAILY 03/23/18 [History] Potassium Chloride [Klor-Con Sprinkle] 10 meq PO DAILY 03/23/18 [History] 3 Allergy/AdvReac Type Severity Reaction Status Date / Time No Known Allergies Allergy Verified 09/30/15 22:29 Examination Vital Signs: Temp Pulse Resp BP Pulse Ox 99.1 F 98 16 150/81 97 03/27/18 15:30 03/27/18 15:30 03/27/18 15:30 03/27/18 15:30 03/27/18 15:30 The patient appears alert, oriented X 3, in no acute distress, healthy-appearing , normal mood.A detailed skin examination of sites including; scalp, head, neck , face, conjunctiva, lids, lips, back, chest/breast/axilla, abdomen, bilateral upper extremities including hands/digits/ fingernails, lower extremities bilaterally including feet toes and toenails bilaterally was completed and found to be normal except: Bilateral lower extremity edema. Nagi branching stated erythema on the lower extremities bilaterally. Patchy branching pink erythematous areas involving proximal lower extremities bilaterally abdomen symmetrically axilla bilaterally General Examination: The patient appears alert, oriented X3, in no acute distress, healthy-appearing , normal mood. A detailed skin examination of sites including: scalp, head, neck , face, conjunctive, lids, lips, back, chest/breast/axilla, abdomen, bilateral upper extremities including hands/digits/fingernails, bilateral lower extremities including feet/digits/toenails, genital/groin/buttock, lymph nodes, was completed and found to be normal except: - Assessment and Plan (1) Lower extremity venous stasis Current Visit: Yes Status: Acute I recommend compression stockings daily and leg elevation (higher than the heart at rest) He is to follow-up in dermatology next week and if edema is not improved we plan To wrap With Unna boot dressing and triamcinolone (2) Rash and other nonspecific skin eruption Current Visit: Yes Status: Acute Likely secondary to medication reaction from acute on chronic venous stasis dermatitis. D recommend short course of systemic steroids to calm the inflammation. He is felt to dermatology clinic early next week if the rash is still present but plan the biopsy. Procedure: Dermatology Date of procedure: 03/27/18 Consult Discharge Plan - Plan Instructions: Hyperglycemia, Non-Diabetic (GEN) Referrals: Phuong Bearden MD [Primary Care Provider] -
[2018-03-28] MEDS: Famotidine 20 MG/2 ML VIAL IVP SCH (05:28)
[2018-03-28] MEDS: *HR* Heparin 5,000 UNIT/ML VIAL SQ SCH ×2 (05:29→13:37)
[2018-03-28] MEDS: Sulfamethoxazole/Trimeth 10 ML in D5% in Water 500 ML IVPB SCH (05:29)
[2018-03-28 06:25] LABS: Basophils # 0.1 K/mcL (0.0-0.2); Basophils % 0.4 %; Eosinophils % 0.2 %; Hemoglobin 12.5 g/dL (12.9-16.9); Immature Granulocytes % 1.3 % (0-4); Lymphocytes # 2.6 K/mcL (0.6-4.6); Lymphocytes % 18.5 %; Mean Corpuscular HGB Conc 31.3 g/dL (31.6-35.5); Mean Corpuscular Hemoglobin 25.9 pg (28.0-33.3); Mean Platelet Volume 10.1 fL (9.4-12.4); Monocytes # 1.1 K/mcL (0.0-1.3); Monocytes % 7.5 %; Neutrophils # 10.1 K/mcL (1.6-8.9); Platelet Count 449 K/mcL (140-400); Red Blood Count 4.82 M/mcL (4.19-5.50); Red Cell Distribution Width 14.9 % (11.5-14.5); Segmented Neutrophils % 72.1 %
[2018-03-28 06:39] LABS: BUN/Creatinine Ratio 18 (6-26); Blood Urea Nitrogen 15 mg/dL (6-20); Calcium 9.6 mg/dL (8.6-10.3); Carbon Dioxide 26 mEq/L (23-29); Chloride 102 mEq/L (98-107); Glucose 149 mg/dL (70-105); Osmolality,Calculated 288 (280-300); Sodium 137 mEq/L (136-145); eGFR For African Americans > 60 (> 60); eGFR For Non-African Americans > 60 (> 60)
[2018-03-28] MEDS: Budesonide/Formoterol 160/4.5 MDI IH SCH (08:02)
[2018-03-28] MEDS: Lactobacillus 1 EACH CAP.SPRINK PO SCH (09:08)
[2018-03-28] MEDS: Insulin LISPRO 300 UNITS/3 ML VIAL SQ SCH ×3 (09:09→17:00)
--- NOTE | 2018-03-28 09:39 | Infectious Disease Progress No ---
Date of Encounter: 03/28/18 Time of Encounter: 09:37 - Assessment and Plan (1) Bilateral lower leg cellulitis Current Visit: Yes Status: Acute Erythema, warmth, and edema noted to the BLE. Etiology unclear. Clinically, this does appear to be cellulitis, but bilateral cellulitis is very unlikely. Additionally, the patient had no change in his symptoms despite outpatient oral antibiotics. No fever. Bili developed leukocytosis today is likely related to IV steroid administration Blood cultures are NGTD x 2 sets. Clinically improved per patient reports. There is also likely an element of venous stasis/PAD contributing to the patient 's symptoms. Trasnition bactrim and levaquin to PO today, recommend 4 more days of treatment Monitor renal function and dose-adjust antibiotics. (2) Rash Current Visit: Yes Status: Acute Location: Lower abdomen and upper aspects of BLE. Erythematous, macular, itchy. Improved. Etiology unclear: drug rash vs. other. Dermatology feels this may be medication reaction or venous stasis dermatitis. Dermatology will follow-up as outpatient Continue supportive care per the primary team. (3) Type 2 diabetes mellitus Current Visit: Yes Status: Acute Controlled. HgbA1C 7%. Recommend aggressive glucose monitoring and control to promote wound healing and prevent re-infection. Management per the primary team. Qualifiers: Diabetes mellitus manager terminal insulin use: without skilled nursing use Diabetes mellitus complication status: without complication Qualified Code(s): E11.9 - Type 2 diabetes mellitus without complications (4) Asthma Current Visit: Yes Status: Acute Qualifiers: Asthma severity: unspecified severity Asthma persistence: unspecified Asthma complication type: uncomplicated Qualified Code(s): J45.909 - Unspecified asthma, uncomplicated (5) GERD (gastroesophageal reflux disease) Current Visit: Yes Status: Acute Qualifiers: Esophagitis presence: esophagitis presence not specified Qualified Code(s) : K21.9 - Gastro-esophageal reflux disease without esophagitis (6) Hypertension Current Visit: Yes Status: Chronic Qualifiers: Hypertension type: essential hypertension Qualified Code(s): I10 - Essential (primary) hypertension (7) Morbid obesity Current Visit: Yes Status: Chronic - Subjective Interval history: Patient seen and examined at bedside. Patient states that he feels better today. He feels like his lower extremity erythema is improving. He reports only mild itching that is relieved with Benadryl. Denies fever, chills, chest pain, shortness of breath, nausea, vomiting, diarrhea. Infect Dis PN-Objective Data - Labs CBC & Chem 7: 03/28/18 05:43 03/28/18 05:43 Labs: Laboratory Results - last 24 hr 03/27/18 03/27/18 03/27/18 07:23 11:24 16:30 WBC RBC Hgb Hct MCV MCH MCHC RDW Plt Count MPV Immature Gran % Seg Neutrophils % Lymphocytes % Monocytes % Eosinophils % Basophils % Neutrophils # Lymphocytes # Monocytes # Eosinophils # Basophils # Sodium 135 L Potassium 4.0 Chloride 102 Carbon Dioxide 24 BUN 13 Creatinine 0.88 Est GFR ( Amer) > 60 Est GFR (Non-Af Amer) > 60 BUN/Creatinine Ratio 15 Glucose 152 H POC Glucose 135 H 175 H Calculated Osmolality 283 Calcium 9.4 03/27/18 03/28/18 03/28/18 21:06 05:43 05:43 WBC 14.0 H D RBC 4.82 Hgb 12.5 L Hct 40.0 MCV 83.0 MCH 25.9 L MCHC 31.3 L RDW 14.9 H Plt Count 449 H MPV 10.1 Immature Gran % 1.3 Seg Neutrophils % 72.1 Lymphocytes % 18.5 Monocytes % 7.5 Eosinophils % 0.2 Basophils % 0.4 Neutrophils # 10.1 H Lymphocytes # 2.6 Monocytes # 1.1 Eosinophils # 0.0 Basophils # 0.1 Sodium 137 Potassium 4.0 Chloride 102 Carbon Dioxide 26 BUN 15 Creatinine 0.85 Est GFR ( Amer) > 60 Est GFR (Non-Af Amer) > 60 BUN/Creatinine Ratio 18 Glucose 149 H POC Glucose 136 H Calculated Osmolality 288 Calcium 9.6 03/28/18 07:18 WBC RBC Hgb Hct MCV MCH MCHC RDW Plt Count MPV Immature Gran % Seg Neutrophils % Lymphocytes % Monocytes % Eosinophils % Basophils % Neutrophils # Lymphocytes # Monocytes # Eosinophils # Basophils # Sodium Potassium Chloride Carbon Dioxide BUN Creatinine Est GFR ( Amer) Est GFR (Non-Af Amer) BUN/Creatinine Ratio Glucose POC Glucose 141 H Calculated Osmolality Calcium Exam - Constitutional Vitals: Temp Pulse Resp BP Pulse Ox 98.3 F 83 17 147/93 95 03/28/18 07:18 03/28/18 07:18 03/28/18 08:03 03/28/18 07:18 03/28/18 08:03 - Respiratory Respiratory exam: Present: CTAB. Absent: rales, rhonchi, wheezes - Cardiovascular Cardiovascular exam: Present: RRR. Absent: diastolic murmur, systolic murmur - GI/Abdominal GI/Abdominal exam: Present: soft. Absent: distended, tenderness - Extremities Exam Additional comments: Lower extremity erythema and appears improved from previous exams. Induration also appears improved. No wounds or areas of drainage noted. - Skin Additional comments: Diffuse erythematous macular rash appears improved, has completely resolved on the upper extremities. Nearly resolved on the stomach and improving on the lower extremities. Consult Discharge Plan - Plan Instructions: Hyperglycemia, Non-Diabetic (GEN) Referrals: Phuong Bearden MD [Primary Care Provider] - - Attending Attestation I examined this patient and my medical decision-making was reviewed with the Resident Physician. I agree with the documented findings, disposition and treatment plan as described except to the extent set forth below.
--- NOTE | 2018-03-28 12:19 | Internal Med Progress Note ---
Date of Encounter: 03/28/18 - Assessment and plan (1) Skin rash Current Visit: Yes Status: Acute (2) Cellulitis of both lower extremities Current Visit: Yes Status: Acute (3) Hypertension Current Visit: Yes Status: Chronic Qualifiers: Hypertension type: essential hypertension Qualified Code(s): I10 - Essential (primary) hypertension (4) Type 2 diabetes mellitus Current Visit: Yes Status: Acute Qualifiers: Diabetes mellitus fdc insulin use: without lobsterman use Diabetes mellitus complication status: without complication Qualified Code(s): E11.9 - Type 2 diabetes mellitus without complications (5) DVT prophylaxis Current Visit: Yes Status: Acute - Time Spent With Patient Total time spent is greater than 50% in coordination of care (as documented) at patient's floor/unit and/or counseling patient: - Subjective Interval history: Rash better in legs and abdomen today. Denies fevers/chills, n./v - Constitutional Vitals: Temp Pulse Resp BP Pulse Ox 98.5 F 81 14 131/85 97 03/28/18 11:46 03/28/18 11:46 03/28/18 11:46 03/28/18 11:46 03/28/18 11:46 General appearance: Present: mild distress Internal Medicine: Result - Labs CBC & Chem 7: 03/28/18 05:43 03/28/18 05:43 Labs: Short CBC 03/28/18 Range/Units 05:43 WBC 14.0 H D (4.3-11.1) K/mcL Hgb 12.5 L (12.9-16.9) g/dL Hct 40.0 (37.5-50.1) % Plt Count 449 H (140-400) K/mcL Neutrophils # 10.1 H (1.6-8.9) K/mcL BMP 03/28/18 05:43 Sodium 137 Potassium 4.0 Chloride 102 Carbon Dioxide 26 BUN 15 Creatinine 0.85 Glucose 149 H Calcium 9.6 Consult Discharge Plan - Plan Instructions: Hyperglycemia, Non-Diabetic (GEN) Referrals: Phuong Bearden MD [Primary Care Provider] -
[2018-03-28 14:59] VITALS: BP 116/73
--- NOTE | 2018-03-28 17:53 | Discharge Summary ---
- NOTES TO OUTPATIENT PROVIDER Notes to Outpatient Provider: Follow-up with primary care physician in next available appointment. Follow-up with Dermatology as noted. Follow-up diabetes management. Glucose under relative control in hospital but patient is being started on steroids due to severe reactions. Orders not resulted at time of discharge: Pending orders 03/29/18 04:00 BMP [Basic Metabolic Panel] AM 0400 Complete Blood Count [HEME] AM 0400 03/30/18 04:00 BMP [Basic Metabolic Panel] AM 0400 Complete Blood Count [HEME] AM 0400 Date of Encounter: 03/28/18 Time of Encounter: 17:50 - Discharge Diagnosis (1) Cellulitis of both lower extremities Priority: Secondary Status: Acute (2) Skin rash Priority: Primary Status: Acute (3) Hypertension Priority: Secondary Status: Chronic Qualifiers: Hypertension type: essential hypertension Qualified Code(s): I10 - Essential (primary) hypertension (4) Type 2 diabetes mellitus Priority: Secondary Status: Acute Qualifiers: Diabetes mellitus correction insulin use: without correction use Diabetes mellitus complication status: without complication Qualified Code(s): E11.9 - Type 2 diabetes mellitus without complications (5) DVT prophylaxis Priority: Secondary Status: Acute Hospital course: Mr. Baca is a 57 year old male with history of obesity, hypertension, supposed pre-diabetes, and asthma who presents with worsening lower extremity edema and redness. The patient was diagnosed with lower extremity cellulitis about 10 days ago and has been through a couple courses of antibiotics including Bactrim, Keflex, clindamycin recently however his erythema persisted and spread. The patient's redness actually started on the left ankle and spread up the leg but he noted that his right lower extremity started having redness as well and it has worsened even more so on the right. The patient says about a couple years ago he had similar a presentation that started on the left lower extremity and spread to the right and at the time and was treated with oral antibiotics. He had multiple visits to [facility] urgent care over the last 10 days and had 2 different ultrasounds the ruled out DVTs of the lower extremities. He denies any fever, chills, nausea, vomiting, blurry vision, chest pain, shortness of breath, abdominal pain, urinary symptoms, or neurological symptoms. In the ED the patient was given IV vancomycin and Zosyn. His initial blood pressure was actually elevated but at the time was seen and was normal. He is also received IV fluids. He was admitted for further treatment and monitoring. Patient while patient was admitted it was noted that he was also dveloping erythema in the abdomen with itching. This was unsure if it was antibiotic related or not. He was switched to Cefepime but still had reaction. He was transitioned back to Zosyn. Patient did not have any signs or symptoms of sepsis and there was question if this was a cellulitis alone or a vascular process or allergic process. A CT aorta runoff and vascular imaging was normal but radiology read did note "skin thickening and cellulitis begining n distal thigh extending to the knees and increasing in severity in the bilateral calves." Infectious disease, Vascular Surgery, and Dermatology were consulted. Patient antibiotics were de- escalted to Levaquin and Bactrim. Vascular Surgery had venous duplex of lower extremities done that were relatively unremarkable. Dermatology noted this could have an allergic component as well. He was started on steroids. Patient cellulitis and diffuse lower extremity rash did decrease in severity, likely from combination of antibiotics and steroid. He was discharged home in stable condition to continue short course of Prednisone and finish Levaquin and Bactrim. Also note patient had A1C 7.0% consistent with diabetes and patient to follow- up with primary care physician on this. Glucose ranged 103-175 during this admission, acceptable in the inpatient setting. However patient requires steroid therapy and this will likely increase glucose levels. - Time Spent with Patient Total time spent providing and/or coordinating discharge services: - Discharge Medications Prescriptions: levoFLOXacin [Levaquin] 750 mg PO DAILY #4 tablet Sulfamethoxazole/Trimeth DS [Bactrim Ds] 1 each PO BID #8 tablet Home Medications: Albuterol Sulfate [Proair Hfa] 2 puff IH Q4-6H PRN 03/23/18 [History] Budesonide/Formoterol 160/4.5 [Symbicort 160/4.5] 2 puff IH BIDR 03/23/18 [ History] Ferrous Sulfate [Iron] 325 mg PO DAILY 03/23/18 [History] Furosemide [Lasix] 40 mg PO DAILY 03/23/18 [History] Losartan [Cozaar] 50 mg PO DAILY 03/23/18 [History] Montelukast [Singulair] 10 mg PO DAILY 03/23/18 [History] Omeprazole [PriLOSEC] 20 mg PO DAILY 03/23/18 [History] Potassium Chloride [Klor-Con Sprinkle] 10 meq PO DAILY 03/23/18 [History] Sulfamethoxazole/Trimeth DS [Bactrim Ds] 1 each PO BID #8 tablet 03/28/18 [Rx] levoFLOXacin [Levaquin] 750 mg PO DAILY #4 tablet 03/28/18 [Rx] predniSONE [PredniSONE] 40 mg PO DAILY #10 tablet 03/28/18 [Rx] Allergies/Adverse Reactions: 3 Allergy/AdvReac Type Severity Reaction Status Date / Time No Known Allergies Allergy Verified 09/30/15 22:29 Date of admission: 03/23/18 01:35 Primary care physician: Puhong Thomas Consults: 03/25/18 15:10 Consult to Infectious Diseases [CONS] Routine Consulting Provider: Infectious Disease Lewis Reason for Consult: Possible cellulitis Call Completed: No 03/26/18 10:25 Consult to Vascular Surgery [CONS] Routine Consulting Provider: Vascular Surgery Angelika Reason for Consult: Possible peripheral vascular disease causing leg edema/ erythema/cellulitis. Call Completed: Yes 03/27/18 08:54 Consult to Dermatology [CONS] Routine Consulting Provider: Dermatology Lewis Reason for Consult: b/l lower extremity rash Call Completed: Yes Discharging clinician: Judith Casper - Constitutional Vitals: Temp Pulse Resp BP Pulse Ox 98.7 F 77 14 116/73 96 03/28/18 14:57 03/28/18 14:57 03/28/18 14:57 03/28/18 14:57 03/28/18 14:57 General appearance: Present: mild distress Exam: - Neck Neck exam general surgery: Present: supple, trachea midline. Absent: lymphadenopathy - Respiratory Respiratory exam: Present: CTAB. Absent: accessory muscle use, rales, rhonchi, wheezes - Cardiovascular Cardiovascular exam: Present: RRR, +S1, +S2. Absent: diastolic murmur, gallop, rubs, systolic murmur - GI/Abdominal GI/Abdominal exam: Present: normal bowel sounds, soft, no peritoneal signs. Absent: distended, tenderness - Extremities Exam Extremities exam: Present: pedal edema, warm, radial pulses palpable and symmetrical. Absent: calf tenderness, cyanotic - Neurological Exam Neurological exam: Present: CN II-XII intact, oriented X3, no focal deficits. Absent: pronater drift, facial droop, speech deficit - Skin Skin exam: Present: dry, intact Additional comments: Rash in lower extremity slightly less erythematous today compared to yesterday exam truncal near resolved - Patient Status Disposition: Home, Self-Care Condition: Good Functional capacity at discharge: independent ambulation Overall status at discharge: patient is progressing back to baseline - Discharge Instructions Instructions: Hyperglycemia, Non-Diabetic (GEN) Follow Up With: Phuong Bearden MD [Primary Care Provider] - - Diet and Activity Activity: increase activity as tolerated Diet: diabetic diet
--- NOTE | 2018-03-28 18:06 | Vascular/[facility] Progress Note ---
Date of Encounter: 03/28/18 Time of Encounter: 17:15 - Assessment and plan (1) Cellulitis of both lower extremities Current Visit: Yes Status: Acute Bilateral lower extremity cellulitis. There may be a component of venous insufficiency to his skin changes and pain. Therefore I recommended that he undergo bilateral lower extremity venous testing with reflux. Essentially normal exam (2) Morbid obesity Current Visit: Yes Status: Chronic Patient is morbidly obese (3) Rash Current Visit: Yes Status: Acute Bilateral skin rash. Patient is being seen by dermatology. (4) PAD (peripheral artery disease) Current Visit: Yes Status: Acute Patient has isolated right anterior tibial artery occlusion. The remaining vessels appear to be normal. I do not recommend further evaluation or workup or angiography for this lesion. - Subjective Interval history: no new complaints Vital Signs, Last 4 Hours Temp Pulse Resp BP Pulse Ox 03/28/18 14:57 98.7 F 77 14 116/73 96 - Physical Examination General: Present: Conversant, No Apparent Distress, Well developed, Well nourished HEENT: Present: Atraumatic, Normocephaly Neck: Absent: JVD Results 03/28/18 05:43 03/28/18 05:43 Lab Results, Last 24 hours 03/28/18 03/28/18 05:43 05:43 WBC 14.0 H D Hgb 12.5 L Hct 40.0 Plt Count 449 H Sodium 137 Potassium 4.0 Chloride 102 Carbon Dioxide 26 BUN 15 Creatinine 0.85 Glucose 149 H Calcium 9.6 - Imaging / Other Tests Non Invasive Vascular Testing: report reviewed, image reviewed (no significant venous reflux no dvt) Consult Discharge Plan - Plan Instructions: Hyperglycemia, Non-Diabetic (GEN) Referrals: Phuong Bearden MD [Primary Care Provider] - Prescriptions: levoFLOXacin [Levaquin] 750 mg PO DAILY #4 tablet predniSONE [PredniSONE] 40 mg PO DAILY #10 tablet Sulfamethoxazole/Trimeth DS [Bactrim Ds] 1 each PO BID #8 tablet
[2018-03-28] MEDS ORDERED: Sulfamethoxazole/Trimeth DS 1 EACH TABLET PO SCH (21:00)
[2018-03-29] MEDS ORDERED: levoFLOXacin 750 MG TABLET PO SCH (09:00)
== END 2018-03-28 18:55 | disposition home or self-care (01) | DRG 383 ==
LOC: EMEROO 23:42 → 3ANU 23:42 → SUATTDRO 03-23 01:35 → 3ANU 03-23 02:05
PROVIDERS: ADMIT Internal Medicine; ATTEND Student in an Organized Health Care Education/Training Program

== ENCOUNTER 2018-07-02 14:07 | Observation (INO) ==
--- NOTE | 2018-07-02 14:50 | Emergency Department Note ---
Disposition Clinical Impression: Bilateral lower leg cellulitis Disposition: Admitted As Inpatient Condition: Fair Time of Disposition: 16:50 Extremity Problem HPI - General Chief complaint: ED Extremity Problem,Nontraumatic Stated complaint: BLE cellulitis Time Seen by Provider: 07/02/18 14:11 Source: patient Nursing Notes Reviewed: Yes Vital Signs Reviewed: Yes - History of Present Illness HPI Narrative: 58yo male presents from home for evaluation of BLE erythema. Consistent with prior episodes of BLE cellulitis. Symptoms began 2 days ago with lower extremity cellulitis. The redness progressed proximally yesterday and today and began weeping today. Hx prior BLE cellulitis. Has required two prior hospital admissions for IV antibiotics. PMH: HTN, HLD, DM ROS: Pos: as above NEg: fever, chills, nausea, vomiting, chest pain, palpitations, new or worsening LE numbness or tingling. No injuries or known breaks in his skin. No hx MRSA. Pain Scale: 0 - Related Data Home Medications Medication Instructions Recorded Confirmed Albuterol Sulfate [Proair Hfa] 2 puff IH Q4-6H PRN 03/23/18 07/02/18 Budesonide/Formoterol 160/4.5 2 puff IH BIDR 03/23/18 07/02/18 [Symbicort 160/4.5] Ferrous Sulfate [Iron] 325 mg PO DAILY 03/23/18 07/02/18 Furosemide [Lasix] 20 mg PO DAILY 03/23/18 07/02/18 Losartan [Cozaar] 50 mg PO DAILY 03/23/18 07/02/18 Montelukast [Singulair] 10 mg PO DAILY 03/23/18 07/02/18 Omeprazole [PriLOSEC] 20 mg PO DAILY 03/23/18 07/02/18 Potassium Chloride [Klor-Con 10 meq PO DAILY 03/23/18 07/02/18 Sprinkle] Allergies Allergy/AdvReac Type Severity Reaction Status Date / Time No Known Allergies Allergy Verified 09/30/15 22:29 All systems ED: reviewed and negative except as stated. Review of Systems: As Per HPI Past Medical History - Past Medical History Medical history: Reports: COPD, DVT, hypertension, other Surgical history: Reports: other Psychiatric history: Reports: no psych history - Social History Smoking Status: Former smoker Smokeless Tobacco Status: No Alcohol use: Reports: none Drug use: Reports: none Physical Exam Vital Signs Reviewed General: Patient is alert, oriented, and in no acute distress. Head: atraumatic, normocephalic Eye: normal appearance, no scleral icterus, no conjunctival injection ENT: mucous membranes moist, normal external ear exam Neck: normal inspection, trachea midline, full ROM Chest: normal inspection, symmetric chest rise Respiratory: Good respiratory effort. Bilateral breath sounds are clear without wheezing, crackles, or rhonchi. Cardiovascular: Regular rate and rhythm. No clicks, rubs, gallops, or murmors. Normal heart sounds. BL dorsalis pedis pulse intact and equal. 2+pitting pedal edema bilaterally. Abdomen: Obese Bowel sounds present normoactive x-4 quadrants. Abdomen is soft , nondistended, and nontender. No guarding or rebound. No organomegaly noted. Musculoskeletal: Spontaneously moving all extremities. Skin: warm, dry. BLE erythema and warmth; right side extending from foot to mid tibia, left side extending from foot to proximal tibia. Weeping wound on right medial calf; serosanguinous fluid, no purulance. Neuro: Alert and oriented x4. Sensation light touch intact. Psych: Patient's affect is appropriate for situation. - General General appearance: alert Course Course Narrative: Plan to admit patient for IV antibiotics given his immunocompromised state (DM) and rapidly progressing erythema. SIRS (-). No clinical evidence of sepsis. Serum hematology unremarkable. Serum chemistry unremarkable. Lactic acid normal. Patient admitted to the hospitalist for bilateral lower extremity cellulitis. Vital Signs Temperature 99.1 F 07/02/18 14:08 Pulse Rate 94 07/02/18 14:08 Respiratory Rate 18 07/02/18 14:08 Blood Pressure 163/80 07/02/18 14:08 O2 Sat by Pulse Oximetry 92 07/02/18 14:08 Temperature 98.5 F 07/02/18 16:39 Pulse Rate 86 07/02/18 16:39 Respiratory Rate 14 07/02/18 16:39 Blood Pressure 135/72 07/02/18 16:39 O2 Sat by Pulse Oximetry 94 07/02/18 16:39 Oxygen Delivery Oxygen Delivery Room Air Extremity Problem, Nontraumati - Lab Data Result diagrams: 07/02/18 16:00 07/02/18 16:00 Attestation Statement - Attestation Attestation: I examined this patient and my medical decision-making was reviewed with the Resident Physician. I agree with the documented findings, disposition and treatment plan as described except to the extent set forth below. Findings consistent with lower extremity cellulitis in the setting of uncontrolled diabetes. Patient be started on broad-spectrum antibiotics, admitted for further management of cellulitis.
[2018-07-02] MEDS ORDERED: Naloxone 0.4 MG/ML INJ IVP PRN (15:06)
--- NOTE | 2018-07-02 15:24 | Internal Med History&Physical ---
<Brock York P - Last Filed: 07/02/18 15:40> Date of Encounter: 07/02/18 Time of Encounter: 14:30 Internal Medicine - H&P: HPI Chief complaint: Cellulitis Admitted From: Home Plans for Post Hospital Care: Home History of present illness: Mr. Baca is a 58 year old male with past medical history significant for cellulitis, COPD, DVT, and hypertension who presents for three days history of bilateral lower extremity erythema, swelling, warmth, with clear drainage. Right lower extremity currently more involved than left. Denies any fever or pain but states it itches. Denies any current treatment. No history of trauma. No relieving or exacerbating factors. No chest pain, shortness of breath, or abdominal pain. Has had recurrent bilateral lower extremity cellulitis with most recent hospitalization for same three months ago. PCP has set up referral to infectious disease and has appointment set for 07/17/2018. Past Med Surg Social Fam HX - Past Medical History Medical history: COPD, DVT, hypertension, other Additional medical history: asthma, cellulitis, DVT Psychiatric history: no psych history - Past Surgical History Surgical History: other Additional surgical history: back surgery - Social History Smoking Status: Former smoker Smokeless Tobacco Status: No Alcohol use: none Drug use: none Internal Medicine - H&P: Meds Albuterol Sulfate [Proair Hfa] 2 puff IH Q4-6H PRN 03/23/18 [History] Budesonide/Formoterol 160/4.5 [Symbicort 160/4.5] 2 puff IH BIDR 03/23/18 [ History] Ferrous Sulfate [Iron] 325 mg PO DAILY 03/23/18 [History] Furosemide [Lasix] 20 mg PO DAILY 03/23/18 [History] Losartan [Cozaar] 50 mg PO DAILY 03/23/18 [History] Montelukast [Singulair] 10 mg PO DAILY 03/23/18 [History] Omeprazole [PriLOSEC] 20 mg PO DAILY 03/23/18 [History] Potassium Chloride [Klor-Con Sprinkle] 10 meq PO DAILY 03/23/18 [History] 3 Allergy/AdvReac Type Severity Reaction Status Date / Time No Known Allergies Allergy Verified 09/30/15 22:29 All Systems PM: A 10-system review of systems was performed and is negative for pertinent findings except as documented above in the HPI. - Constitutional Vitals: Temp Pulse Resp BP Pulse Ox 99.1 F 94 18 163/80 92 07/02/18 14:08 07/02/18 14:08 07/02/18 14:08 07/02/18 14:08 07/02/18 14:08 Exam: General: Alert and oriented. Skin:Normal color. Erythema, non pitting edema, warmth, and serous drainage noted to bilateral lower extremities below knee. HEENT:EOM, pupils equal, round and reactive. Cardiovascular:Normal S1 & S2, no rubs, murmurs or gallops. No JVD. Pulse regular. Lungs:Normal breath sounds, no wheezes or crackles. Abdomen:Soft, non-tender, no rigidity. Extremities:No deformity, tenderness, or clubbing. Bilateral lower extremities as described above, right lower extremity with more edema than left. Neurological:Normal cognition and motor skills. Pulses:Carotid and radial pulses normal +2. Rest of the physical exam is non contributory. - Assessment and plan (1) Cellulitis Current Visit: Yes Status: Acute Assessment and plan: IV Ciprofloxacin and Vancomycin started in ED. Will continue same. Blood cultures pending. Repeat labs in a.m. Qualifiers: Site of cellulitis: extremity Site of cellulitis of extremity: lower extremity Laterality: unspecified laterality Qualified Code(s): L03.119 - Cellulitis of unspecified part of limb (2) Type 2 diabetes mellitus Current Visit: No Status: Acute Assessment and plan: Diet controlled diabetic. Accu checks q6. Diabetic/Cardiac diet. Qualifiers: Diabetes mellitus fdc insulin use: without fdc use Diabetes mellitus complication status: with skin complications Diabetes mellitus complication detail: with other skin complication Qualified Code(s): E11.628 - Type 2 diabetes mellitus with other skin complications (3) Hypertension Current Visit: No Status: Chronic Assessment and plan: Continue home medications. Cardiac/diabetic diet. Qualifiers: Hypertension type: essential hypertension Qualified Code(s): I10 - Essential (primary) hypertension (4) DVT of leg (deep venous thrombosis) Current Visit: Yes Status: Suspected Assessment and plan: RLE edema worse than left. DVT history. Doppler ordered to rule out. Lovenox ordered. Qualifiers: Affected thrombotic vein of extremity: unspecified vein of extremity Laterality: right Qualified Code(s): I82.401 - Acute embolism and thrombosis of unspecified deep veins of right lower extremity - Time Spent With Patient Total time spent is greater than 50% in coordination of care (as documented) at patient's floor/unit and/or counseling patient: <Ryan Ojeda - Last Filed: 07/02/18 16:08> Date of Encounter: 07/02/18 Time of Encounter: 15:35 - Constitutional Vitals: Temp Pulse Resp BP Pulse Ox 99.1 F 94 18 163/80 92 07/02/18 14:08 07/02/18 14:08 07/02/18 14:08 07/02/18 14:08 07/02/18 14:08 General appearance: Present: cooperative, pleasant - Respiratory Respiratory exam: Present: CTAB. Absent: rales, rhonchi, wheezes - Cardiovascular Cardiovascular exam: Present: RRR, +S1, +S2 - GI/Abdominal GI/Abdominal exam: Present: soft. Absent: tenderness - Extremities Exam Extremities exam: Present: normal capillary refill, pedal edema (R>>L), warm, radial pulses palpable and symmetrical. Absent: joint swelling Additional comments: red, warm, tender pre-tibial areas consistent w cellulitis; asymmetrical swelling - Back Exam Back exam: Absent: CVA tenderness (L), CVA tenderness (R) - Assessment and plan (1) Hypertension Current Visit: No Status: Chronic Qualifiers: Hypertension type: essential hypertension Qualified Code(s): I10 - Essential (primary) hypertension (2) Type 2 diabetes mellitus Current Visit: No Status: Acute Qualifiers: Diabetes mellitus fdc insulin use: without fdc use Diabetes mellitus complication status: with skin complications Diabetes mellitus complication detail: with other skin complication Qualified Code(s): E11.628 - Type 2 diabetes mellitus with other skin complications (3) Cellulitis Current Visit: Yes Status: Acute Qualifiers: Site of cellulitis: extremity Site of cellulitis of extremity: lower extremity Laterality: unspecified laterality Qualified Code(s): L03.119 - Cellulitis of unspecified part of limb (4) DVT of leg (deep venous thrombosis) Current Visit: Yes Status: Suspected Qualifiers: Affected thrombotic vein of extremity: unspecified vein of extremity Laterality: right Qualified Code(s): I82.401 - Acute embolism and thrombosis of unspecified deep veins of right lower extremity - Time Spent With Patient Total time spent is greater than 50% in coordination of care (as documented) at patient's floor/unit and/or counseling patient: - Attending Attestation I discussed the patient [place], past medical history, review of systems, lab data , and exam findings with Teofilo York CNP. I then saw patient independently and examined him as well. He has had recurrent bouts of cellulitis and has venous stasis changes in his legs. He has obvious signs of cellulitis of his legs and he has significant asymmetrical swelling of his legs with right significantly larger than his left. I questioned him about history of DVT, and he confirms a DVT in the right leg several years ago. He denies any trauma or injury to his leg. Given asymmetrical swelling of his legs, I am quite concerned about a new acute DVT. We will therefore treat him empirically for DVT with Lovenox as well as treating for cellulitis. Meanwhile, we will proceed with Dopplers of legs to rule out DVT. Further treatment will be dictated by clinical course and response to care. Other my comments above and noted physical exam findings, I agree with Teofilo's assessment and plan.
[2018-07-02 16:14] LABS: Basophils % 0.3 %; Eosinophils # 0.3 K/mcL (0.0-0.6); Eosinophils % 3.8 %; Immature Granulocytes % 0.6 % (0-4); Lymphocytes # 1.5 K/mcL (0.6-4.6); Lymphocytes % 16.9 %; Mean Corpuscular HGB Conc 32.5 g/dL (31.6-35.5); Mean Corpuscular Hemoglobin 26.7 pg (28.0-33.3); Mean Corpuscular Volume 82.3 fL (83.0-100.0); Mean Platelet Volume 10.1 fL (9.4-12.4); Monocytes % 11.3 %; Neutrophils # 5.9 K/mcL (1.6-8.9); Platelet Count 233 K/mcL (140-400); Red Blood Count 4.86 M/mcL (4.19-5.50); Red Cell Distribution Width 15.9 % (11.5-14.5); Segmented Neutrophils % 67.1 %
[2018-07-02 16:23] LABS: INR 1.2; Prothrombin Time 13.2 Seconds (9.4-12.1)
[2018-07-02 16:34] LABS: Alanine Aminotransferase 26 Units/L (7-52); Albumin/Globulin Ratio 1.2 (1.1-2.2); Alkaline Phosphatase 73 Units/L (34-104); Aspartate Amino Transferase 19 Units/L (13-39); BUN/Creatinine Ratio 12 (6-26); Bilirubin,Direct 0.1 mg/dL (0.0-0.2); Bilirubin,Indirect 0.6 mg/dL (0.0-1.2); Bilirubin,Total 0.7 mg/dL (0.3-1.0); Blood Urea Nitrogen 10 mg/dL (6-20); Calcium 9.2 mg/dL (8.6-10.3); Carbon Dioxide 29 mEq/L (23-29); Chloride 102 mEq/L (98-107); Globulin 3.4 g/dL (2.4-3.5); Glucose 147 mg/dL (70-105); Osmolality,Calculated 290 (280-300); Potassium 3.4 mEq/L (3.5-5.1); Sodium 139 mEq/L (136-145); Total Protein 7.4 g/dL (6.4-8.9); eGFR For Non-African Americans > 60 (> 60)
[2018-07-02 16:35] LABS: Troponin I < 0.03 ng/mL (< 0.04)
[2018-07-02] MEDS: *HR* Enoxaparin 150 MG/ML SYRINGE SQ SCH (17:16)
[2018-07-02 19:20] LABS: Bilirubin,Urine Negative (Negative); Blood,Urine Negative (Negative); Clarity,Urine Cloudy (Clear); Color,Urine Yellow (Yellow); Glucose,Urine (UA) Normal (Normal); Ketones,Urine Negative (Negative); Leukocyte Esterase,Urine Negative (Negative); Nitrite,Urine Negative (Negative); Protein,Urine Trace mg/dL (Neg-Trace); Specific Gravity,Urine 1.025 (1.010-1.025); Urobilinogen,Urine Normal (Normal)
[2018-07-02 19:36] LABS: Bacteria,Urine Moderate per hpf (None-Few); RBC,Urine 0-3 per hpf (0-3); Squamous Epithelial Cell,Urine Many per lpf (None-Few); WBC,Urine 0-3 per hpf (0-3)
[2018-07-02] MEDS: Budesonide/Formoterol 160/4.5 1 PUFF INH IH SCH (20:18)
[2018-07-03 01:09] LABS: Basophils # 0.1 K/mcL (0.0-0.2); Basophils % 0.5 %; Eosinophils # 0.4 K/mcL (0.0-0.6); Eosinophils % 4.3 %; Hematocrit 37.7 % (37.5-50.1); Hemoglobin 12.2 g/dL (12.9-16.9); Immature Granulocytes % 0.5 % (0-4); Lymphocytes # 2.4 K/mcL (0.6-4.6); Lymphocytes % 25.2 %; Mean Corpuscular HGB Conc 32.4 g/dL (31.6-35.5); Mean Corpuscular Hemoglobin 26.3 pg (28.0-33.3); Mean Corpuscular Volume 81.4 fL (83.0-100.0); Mean Platelet Volume 10.9 fL (9.4-12.4); Monocytes % 10.5 %; Neutrophils # 5.5 K/mcL (1.6-8.9); Platelet Count 266 K/mcL (140-400); Red Blood Count 4.63 M/mcL (4.19-5.50); Red Cell Distribution Width 16.1 % (11.5-14.5)
[2018-07-03] MEDS: *HR* Enoxaparin 150 MG/ML SYRINGE SQ SCH ×2 (05:41→18:46)
[2018-07-03] MEDS: Budesonide/Formoterol 160/4.5 1 PUFF INH IH SCH ×2 (08:08→20:01)
[2018-07-03] MEDS: Piperacillin/Tazobactam 3.375 GM in 0.9 % Sodium Chloride Mini Bag 100 ML IVPB SCH ×3 (08:13→23:51)
[2018-07-03] MEDS: Furosemide 20 MG TABLET PO SCH (08:13)
[2018-07-03 09:59] LABS: INR 1.2; Prothrombin Time 13.5 Seconds (9.4-12.1)
--- NOTE | 2018-07-03 11:24 | Internal Med Progress Note ---
Hospitalist Progress Note - Encounter Date of Encounter: 07/03/18 Time of Encounter: 08:30 - Subjective Interval History: he is feeling well, no over night events, tolerating diet. has some right lower extremity pain but its controlled with pain medications denies fever, chills, N/v/d, falls, chest pain, SOb, palpitations, cough - Exam Vitals: Temp Pulse Resp BP Pulse Ox 98.5 F 76 18 156/83 96 07/03/18 10:57 07/03/18 10:57 07/03/18 10:57 07/03/18 10:57 07/03/18 10:57 Exam: General: Patient is alert, oriented, no acute distress, morbidly obese Head: atraumatic, normocephalic, Eye: normal appearance, PERRL, no scleral icterus, no conjunctival injection ENT: mucous membranes moist, normal external ear exam Neck: normal inspection, trachea midline, full ROM, no carotid bruits Chest: normal inspection, symmetric chest rise Respiratory: decreased breath sounds secondary to body habitus Good respiratory effort. Bilateral breath sounds are clear without wheezing, crackles, or rhonchi. Cardiovascular: decreased heart sounds secondary to body habitus, Regular rate and rhythm. s1 and s2 No clicks, rubs, gallops, or murmors. Abdomen: Bowel sounds present normoactive x-4 quadrants. Abdomen is soft, nondistended. no Epigastric tenderness. No guarding or rebound. No organomegaly noted, obese musculoskeletal: Spontaneously moving all extremities. 3 edema of the lower extremities below the knee R>L. has erythema of the lower extremity area is marked. has 3x3 cm blister above medial malleolous , warmth associated with bilateral lower extremity. Skin: warm, dry, intact. Neuro: Alert and oriented x4. Sensation light touch intact. Cranial nerves 2- 12 is intact. Not aphasic, rapid hand movements intact, [id number] intact, Psych: Patient's affect is normal - Assessment and Plan (1) Cellulitis of both lower extremities Current Visit: Yes Status: Acute Assessment and Plan: bilateral lower extremity cellulitis below the knee and possibly venous stasis on IV vancomycin and Zosyn Bcx sent will follow ID consulted as he had OP appointment mid july, will follow recommendations (2) DVT of leg (deep venous thrombosis) Current Visit: Yes Status: Suspected Assessment and Plan: patient has history of right popliteal vein DVT and he reports that he was on prolonged course of coumadin he reports that his coumadin was discontinued because reat US had shown ? resolution of his DVT DVT study on 07/02/18- POSITIVE DVT right lower extremity+Popliteal vein partial chronic thrombus. he was started on therapeutic lovenox will bridge him with coumadin follow INR in the AM (3) Type 2 diabetes mellitus Current Visit: No Status: Acute Assessment and Plan: Diet controlled diabetic. Accu checks q6. A1c in AM (4) Hypertension Current Visit: No Status: Chronic Assessment and Plan: continue losartan 50 mg daily follow VS as perprotocol will titrate BP medication as per BP (5) Morbidly obese Current Visit: Yes Status: Acute Assessment and Plan: BMI 47 was counseled on nutrition nutrition consult DVT Prophylaxis: on therapeutic lovenox - Time Spent with Patient Total time spent is greater than 50% in coordination of care (as documented) at patient's floor/unit and/or counseling patient: Internal Medicine: Result - Labs CBC & Chem 7: 07/03/18 00:38 07/02/18 16:00 Labs: Short CBC 07/02/18 07/03/18 Range/Units 16:00 00:38 WBC 8.8 9.3 (4.3-11.1) K/mcL Hgb 13.0 12.2 L (12.9-16.9) g/dL Hct 40.0 37.7 (37.5-50.1) % Plt Count 233 266 (140-400) K/mcL Neutrophils # 5.9 5.5 (1.6-8.9) K/mcL BMP 07/02/18 16:00 Sodium 139 Potassium 3.4 L Chloride 102 Carbon Dioxide 29 BUN 10 Creatinine 0.82 Glucose 147 H Calcium 9.2 Cardiac Enzymes 07/02/18 Range/Units 16:00 Troponin I < 0.03 (< 0.04) ng/mL Liver Function 07/02/18 Range/Units 16:00 Total Bilirubin 0.7 (0.3-1.0) mg/dL Direct Bilirubin 0.1 (0.0-0.2) mg/dL AST 19 (13-39) Units/L ALT 26 (7-52) Units/L Alkaline Phosphatase 73 (34-104) Units/L Albumin 4.0 (3.5-5.7) g/dL Urine 07/02/18 Range/Units 19:00 Urine Color Yellow (Yellow) Urine Clarity Cloudy A (Clear) Urine pH 6.0 (5.0-8.0) pH Units Ur Specific [place] 1.025 (1.010-1.025) Urine Protein Trace (Neg-Trace) mg/dL Urine Glucose (UA) Normal (Normal) mg/dL - ABG Interpretation ABG results: PT/INR, D-dimer PT 13.5 Seconds (9.4-12.1) H 07/03/18 09:38 - VTE Reasons for not Prescribing Prophylaxis: Treatment not Indicated - Low risk for VTE Consult Discharge Plan - Plan Referrals: Phuong Bearden MD [Primary Care Provider] - 07/11/18 2:30 pm (Patient will be seeing the Nurse Practitioner. 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
--- NOTE | 2018-07-03 16:00 | Infectious Disease Consult ---
Date of Encounter: 07/03/18 Time of Encounter: 13:00 Assessment and Plan (1) Cellulitis of both lower extremities Status: Acute Assessment and plan: Location: RLE. LLE does appear to have some skin changes, but I think these are more consistent with venous stasis dermatitis. Etiology likely multifactorial: venous stasis ulcer + venous insufficiency Causative organism: Unclear. Recommend wound care or Podiatry to evaluate RLE ulcer. Continue Zosyn 3.375 grams IV Q8H. Re-start Vancomycin IV. Pharmacy to dose. Goal trough ~15. Duration of treatment depends on the clinical picture. Monitor renal function and for drug toxicity and dose-adjust antibiotics. If the patient fails to respond adequately to IV antibiotics, may need to consider imaging, but will hold off for now. (2) Ulcer of right leg Status: Acute Assessment and plan: Location: Medial aspect of the RLE. Likely venous stasis ulcer. Recommend wound care or Podiatry to evaluate. Clinically, does not appear infected. Continue antibiotics as above. Qualifiers: Non-pressure ulcer stage: limited to breakdown of skin Qualified Code(s): L97.911 - Non-pressure chronic ulcer of unspecified part of right lower leg limited to breakdown of skin (3) Hypertension Status: Chronic Qualifiers: Hypertension type: essential hypertension Qualified Code(s): I10 - Essential (primary) hypertension (4) Morbid obesity Status: Chronic (5) GERD (gastroesophageal reflux disease) Status: Acute Qualifiers: Esophagitis presence: esophagitis presence not specified Qualified Code(s) : K21.9 - Gastro-esophageal reflux disease without esophagitis (6) Type 2 diabetes mellitus Status: Acute Assessment and plan: Recommend aggressive glucose monitoring and control to promote wound healing and prevent re-infection. Management per the primary team. 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 Discussed the importance of lifestyle modification and the role that venous stasis plays in recurrent cellulitis. Recommend the patient lose weight, keep legs elevated, apply moisturizer lotion to intact skin daily, and wear compression stockings during daytime hours. (8) DVT of leg (deep venous thrombosis) Status: Suspected Assessment and plan: Previous DVT to the RLE. Patient states he was on AC for two years, and recently stopped. Doppler of the RLE showed chronic thrombus to the right popliteal vein. AC per the primary team. Qualifiers: Affected thrombotic vein of extremity: popliteal Chronicity: chronic Laterality: right Qualified Code(s): I82.531 - Chronic embolism and thrombosis of right popliteal vein Infectious Disease HPI - Data of Consult Patient: known to practice within the last 3 years Consult date: 07/03/18 Requesting Physician: Ana Stone MD Primary Care Provider: Phuong Bearden MD - Consult Narrative Reason for consult: BLE Cellulitis History of present illness: Mr. Baca is a 58 year old male with a past medical history of hypertension , hyperlipidemia, diabetes, DVT, and COPD. The patient was omitted to the hospital July 02 for bilateral lower extremity cellulitis. We are consulted July 03 for further recommendations for bilateral lower extremity cellulitis. Briefly, the patient is a 58-year-old male with a past medical history as stated above. Patient presented to the emergency department with a 2 day history of bilateral lower extremity swelling, redness, and weeping serous drainage. Upon arrival to the ER, the patient was afebrile. He was mildly tachycardic with a normal white blood cell count. Kidney function, LFTs, troponin were normal. Urinalysis appeared contaminated. Blood cultures were obtained 1 set and are pending. He was started empirically on Vanco and Cipro and admitted to the hospital for further evaluation. Since admission, the patient has remained afebrile hemodynamically stable. Tachycardia has resolved. He underwent a right lower extremity venous Doppler study that showed a chronic thrombosis to the right popliteal vein. Currently, he is on IV vancomycin and Zosyn. We have been asked to evaluate and make further recommendations. During my exam today the patient states he was in his usual state of health. He states two days ago, both of his legs became swollen, red, tender, and hot to touch. He denies fevers, chills, or rigors. Denies headache neck pain, or weakness. Denies chest pain, shortness of breath, or cough. Denies abdominal pain, urinary complaints, or appetite changes. Denies oral thrush or new skin lesions. He does report a chronic non-healing ulcer to the medial aspect of the RLE that has been getting bigger since it started back in March when he has cellulitis the last time. He states he thought it would get better, but it has actually gotten worse. He reports that the LLE was weeping yesterday and the RLE is having some serous drainage today. The patient lives at home alone. He is retired. Denies tobacco, alcohol, or illicit drug use. Reports that his blood sugars are well-controlled. Denies recent travel. He does have a dog, but denies any bites or scratches. Denies any chronic infectious diseases. CC: Ana Stone MD Past Med Surg Social Fam HX - Past Medical History Attestation: Yes The following information was validated with the patient. Source: patient, old records reviewed, nursing notes reviewed Medical history: COPD, DVT, hypertension, other Additional medical history: asthma, cellulitis, DVT Psychiatric history: no psych history - Past Surgical History Surgical History: other Additional surgical history: back surgery - Social History Smoking Status: Former smoker Smokeless Tobacco Status: No Alcohol use: none Drug use: none Occupational status: retired Current living situation: Home - Independent Activity Level: Independent ambulation Recent Out of Country Travel Within the Last 8 Weeks: No Exposure or Possible Exposure to Illness During Travel: No Infectious Disease-CN:Meds Albuterol Sulfate [Proair Hfa] 2 puff IH Q4-6H PRN 03/23/18 [History] Budesonide/Formoterol 160/4.5 [Symbicort 160/4.5] 2 puff IH BIDR 03/23/18 [ History] Ferrous Sulfate [Iron] 325 mg PO DAILY 03/23/18 [History] Furosemide [Lasix] 20 mg PO DAILY 03/23/18 [History] Losartan [Cozaar] 50 mg PO DAILY 03/23/18 [History] Montelukast [Singulair] 10 mg PO DAILY 03/23/18 [History] Omeprazole [PriLOSEC] 20 mg PO DAILY 03/23/18 [History] Potassium Chloride [Klor-Con Sprinkle] 10 meq PO DAILY 03/23/18 [History] 3 Allergy/AdvReac Type Severity Reaction Status Date / Time No Known Allergies Allergy Verified 11/27/15 22:29 All systems: reviewed and no additional remarkable complaints except as stated Exam - Constitutional Vitals: Temp Pulse Resp BP Pulse Ox 98.9 F 75 16 119/68 96 07/03/18 15:06 07/03/18 15:06 07/03/18 15:06 07/03/18 15:06 07/03/18 15:06 General appearance: cooperative, morbidly obese, no acute distress - Head Head exam: Present: atraumatic, normal inspection, normocephalic - Eye Eye exam: Present: EOMI, normal appearance, PERRL Pupils: Present: normal accommodation - ENT ENT exam: Present: mucous membranes moist - Neck Neck exam: Present: normal inspection - Respiratory Respiratory exam: Present: CTAB. Absent: rales, respiratory distress, rhonchi, wheezes - Cardiovascular Cardiovascular exam: Present: RRR, +S1, +S2 - GI/Abdominal GI/Abdominal exam: Present: distended (obese), normal bowel sounds, soft. Absent: tenderness - Extremities Exam Extremities exam: Present: pedal edema (2+ RLE, 1+ LLE), tenderness (RLE). Absent: joint swelling, normal inspection (Erythema, warmth, and edema noted to the RLE. Ulceration noted to the medial aspect of the left wood with wound bed moist and yellow. No purulent drainage. SMall amount of serous drainage noted.) Additional comments: Venous stasis dermatitis noted to the BLE. - Neurological Exam Neurological exam: Present: alert, oriented X3, no focal deficits - Psychiatric Psychiatric exam: Present: normal affect, normal mood - Skin Skin exam: Present: dry, intact, normal color, warm Infectious Disease CN: Results - Labs CBC & Chem 7: 07/04/18 04:11 07/04/18 04:11 Cultures: Cultures 07/02/18 16:00 Blood Culture - Preliminary Peripheral Venipuncture Culture is incubating and being continuously monitored for growth. Final report to follow. Serology: Serology 07/02/18 Range/Units 19:00 Urine Color Yellow (Yellow) Urine Clarity Cloudy A (Clear) Urine pH 6.0 (5.0-8.0) pH Units Ur Specific [place] 1.025 (1.010-1.025) Urine Protein Trace (Neg-Trace) mg/dL Urine Glucose (UA) Normal (Normal) mg/dL Urine Ketones Negative (Negative) mg/dL Urine Blood Negative (Negative) Urine Nitrite Negative (Negative) Urine Bilirubin Negative (Negative) Urine Urobilinogen Normal (Normal) mg/dL Ur Leukocyte Esterase Negative (Negative) Urine Microscopic RBC 0-3 (0-3) per hpf Urine Microscopic WBC 0-3 (0-3) per hpf Ur Squamous Epith Cells Many H (None-Few) per lpf Urine Bacteria Moderate H (None-Few) per hpf Ur Culture Indicated? NO (NO) - VTE Reasons for not Prescribing Prophylaxis: Treatment not Indicated - Low risk for VTE Consult Discharge Plan - Plan Referrals: Phuong Bearden MD [Primary Care Provider] - 07/11/18 2:30 pm (Patient will be seeing the Nurse Practitioner. Thank you) - Attending Attestation I examined this patient and my medical decision-making was reviewed with the Resident Physician. I agree with the documented findings, disposition and treatment plan as described except to the extent set forth below. This is an addendum to original report dictated by Aretha Sheikh CNP. Please refer to Aretha's note for full detail. 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 Patient came in with cellulitis-like picture especially on the right lower extremity. Patient is known to have morbid obesity with a BMI of 46, diabetes mellitus type 2, bilateral oximetry venous stasis and a lesion on the right lower extremity which appears to be like a lipoma. Patient was started on broad- spectrum antibiotics. His cultures have never been positive so I am not sure what the causative organism of the cellulitis. Agree with broad-spectrum vancomycin and Zosyn. Duration of treatment depends on the clinical picture but we can probably switch him to an oral option once he is clinically better. Probably will treat for 2 weeks total. Monitor labs and for drug toxicity.
[2018-07-03] MEDS ORDERED: Warfarin perPT PO PRN (18:00)
[2018-07-03] MEDS ORDERED: *HR* Warfarin 5 MG TABLET PO SCH (18:00)
[2018-07-03] MEDS ORDERED: *HR* Warfarin 5 MG TABLET PO ONE (18:00)
[2018-07-04 04:27] LABS: Hematocrit 36.4 % (37.5-50.1); Hemoglobin 11.5 g/dL (12.9-16.9); Mean Corpuscular HGB Conc 31.6 g/dL (31.6-35.5); Mean Corpuscular Hemoglobin 25.7 pg (28.0-33.3); Mean Corpuscular Volume 81.4 fL (83.0-100.0); Mean Platelet Volume 10.4 fL (9.4-12.4); Platelet Count 230 K/mcL (140-400); Red Blood Count 4.47 M/mcL (4.19-5.50); Red Cell Distribution Width 15.6 % (11.5-14.5)
[2018-07-04 04:35] LABS: INR 1.1; Prothrombin Time 12.7 Seconds (9.4-12.1)
[2018-07-04 04:46] LABS: BUN/Creatinine Ratio 15 (6-26); Blood Urea Nitrogen 12 mg/dL (6-20); Carbon Dioxide 26 mEq/L (23-29); Chloride 104 mEq/L (98-107); Glucose 130 mg/dL (70-105); Osmolality,Calculated 288 (280-300); Potassium 3.7 mEq/L (3.5-5.1); Sodium 138 mEq/L (136-145); eGFR For Non-African Americans > 60 (> 60)
[2018-07-04] MEDS: *HR* Enoxaparin 150 MG/ML SYRINGE SQ SCH ×2 (05:43→16:52)
[2018-07-04] MEDS: Budesonide/Formoterol 160/4.5 1 PUFF INH IH SCH ×2 (08:04→19:55)
[2018-07-04] MEDS: Piperacillin/Tazobactam 3.375 GM in 0.9 % Sodium Chloride Mini Bag 100 ML IVPB SCH ×3 (08:54→23:48)
[2018-07-04] MEDS: Furosemide 20 MG TABLET PO SCH (08:56)
--- NOTE | 2018-07-04 10:34 | Infectious Disease Progress No ---
Date of Encounter: 07/04/18 Time of Encounter: 09:30 - Assessment and Plan (1) Cellulitis of both lower extremities Current Visit: Yes Status: Acute Location: RLE. LLE does appear to have some skin changes, but I think these are more consistent with venous stasis dermatitis. Etiology likely multifactorial: venous stasis ulcer + venous insufficiency Causative organism: Unclear. Clinically improved. Recommend wound care or Podiatry to evaluate RLE ulcer. Continue Zosyn 3.375 grams IV Q8H. Continue Vancomycin IV. Pharmacy to dose. Goal trough ~15. Duration of treatment depends on the clinical picture, but likely a total of 14 days. Can likely transition to PO antibiotics when ready for discharge. Monitor renal function and for drug toxicity and dose-adjust antibiotics. If the patient fails to respond adequately to IV antibiotics, may need to consider imaging, but will hold off for now. (2) Ulcer of right leg Current Visit: Yes Status: Acute Location: Medial aspect of the RLE. Likely venous stasis ulcer. Recommend wound care or Podiatry to evaluate. Clinically, does not appear infected. Continue antibiotics as above. Qualifiers: Non-pressure ulcer stage: limited to breakdown of skin Qualified Code(s): L97.911 - Non-pressure chronic ulcer of unspecified part of right lower leg limited to breakdown of skin (3) Hypertension Current Visit: No Status: Chronic Qualifiers: Hypertension type: essential hypertension Qualified Code(s): I10 - Essential (primary) hypertension (4) Morbid obesity Current Visit: No Status: Chronic (5) GERD (gastroesophageal reflux disease) Current Visit: No Status: Acute Qualifiers: Esophagitis presence: esophagitis presence not specified Qualified Code(s) : K21.9 - Gastro-esophageal reflux disease without esophagitis (6) Type 2 diabetes mellitus Current Visit: No Status: Acute Recommend aggressive glucose monitoring and control to promote wound healing and prevent re-infection. Management per the primary team. 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 Discussed the importance of lifestyle modification and the role that venous stasis plays in recurrent cellulitis. Recommend the patient lose weight, keep legs elevated, apply moisturizer lotion to intact skin daily, and wear compression stockings during daytime hours. (8) DVT of leg (deep venous thrombosis) Current Visit: Yes Status: Suspected Previous DVT to the RLE. Patient states he was on AC for two years, and recently stopped. Doppler of the RLE showed chronic thrombus to the right popliteal vein. AC per the primary team. Qualifiers: Affected thrombotic vein of extremity: popliteal Chronicity: chronic Laterality: right Qualified Code(s): I82.531 - Chronic embolism and thrombosis of right popliteal vein - Subjective Interval history: Patient seen and examined. No acute events noted overnight. Patient resting quietly in bed. States overall he feels fine. Denies fevers, chills, or rigors. Denies chest pain, shortness of breath, or cough. Denies nausea, vomiting, or diarrhea. Denies abdominal pain, urinary complaints, or appetite changes. Denies pain in the back or extremities. Denies oral thrush or new skin lesions. Infect Dis PN-Objective Data - Labs CBC & Chem 7: 07/04/18 04:11 07/04/18 04:11 Labs: Laboratory Results - last 24 hr 07/03/18 07/03/18 07/03/18 10:56 16:34 20:56 WBC RBC Hgb Hct MCV MCH MCHC RDW Plt Count MPV PT INR Sodium Potassium Chloride Carbon Dioxide BUN Creatinine Est GFR ( Amer) Est GFR (Non-Af Amer) BUN/Creatinine Ratio Glucose POC Glucose 122 H 108 H 121 H Calculated Osmolality Calcium 07/04/18 07/04/18 07/04/18 04:11 04:11 04:11 WBC 7.0 RBC 4.47 Hgb 11.5 L Hct 36.4 L MCV 81.4 L MCH 25.7 L MCHC 31.6 RDW 15.6 H Plt Count 230 MPV 10.4 PT 12.7 H INR 1.1 Sodium 138 Potassium 3.7 Chloride 104 Carbon Dioxide 26 BUN 12 Creatinine 0.81 Est GFR ( Amer) > 60 Est GFR (Non-Af Amer) > 60 BUN/Creatinine Ratio 15 Glucose 130 H POC Glucose Calculated Osmolality 288 Calcium 9.0 Cultures: Cultures 07/02/18 16:00 Blood Culture - Preliminary Peripheral Venipuncture Culture is incubating and being continuously monitored for growth. Final report to follow. Serology 07/02/18 Range/Units 19:00 Urine Color Yellow (Yellow) Urine Clarity Cloudy A (Clear) Urine pH 6.0 (5.0-8.0) pH Units Ur Specific [place] 1.025 (1.010-1.025) Urine Protein Trace (Neg-Trace) mg/dL Urine Glucose (UA) Normal (Normal) mg/dL Urine Ketones Negative (Negative) mg/dL Urine Blood Negative (Negative) Urine Nitrite Negative (Negative) Urine Bilirubin Negative (Negative) Urine Urobilinogen Normal (Normal) mg/dL Ur Leukocyte Esterase Negative (Negative) Urine Microscopic RBC 0-3 (0-3) per hpf Urine Microscopic WBC 0-3 (0-3) per hpf Ur Squamous Epith Cells Many H (None-Few) per lpf Urine Bacteria Moderate H (None-Few) per hpf Ur Culture Indicated? NO (NO) Exam - Constitutional Vitals: Temp Pulse Resp BP Pulse Ox 98.2 F 73 18 126/77 98 07/04/18 07:56 07/04/18 07:56 07/04/18 08:05 07/04/18 07:56 07/04/18 08:07 General appearance: cooperative, morbidly obese, no acute distress - Head Head exam: Present: atraumatic, normal inspection, normocephalic - Eye Eye exam: Present: EOMI, normal appearance, PERRL Pupils: Present: normal accommodation - ENT ENT exam: Present: mucous membranes moist - Neck Neck exam: Present: normal inspection - Respiratory Respiratory exam: Present: CTAB. Absent: rales, respiratory distress, rhonchi, wheezes - Cardiovascular Cardiovascular exam: Present: RRR, +S1, +S2 - GI/Abdominal GI/Abdominal exam: Present: distended (obese), normal bowel sounds, soft. Absent: tenderness - Extremities Exam Extremities exam: Present: pedal edema (1+ BLE). Absent: joint swelling, normal inspection (Venous stasis dermatitis noted to the BLE.), tenderness Additional comments: Erythema to the RLE improved. Venous stasis ulcer noted to the medial aspect of the RLE remains scabbed without drainage. Mild tenderness around the ulcer noted. - Neurological Exam Neurological exam: Present: alert, oriented X3, no focal deficits - Psychiatric Psychiatric exam: Present: normal affect, normal mood - Skin Skin exam: Present: dry, intact, normal color, warm - VTE Reasons for not Prescribing Prophylaxis: Treatment not Indicated - Low risk for VTE Consult Discharge Plan - Plan Referrals: Phuong Bearden MD [Primary Care Provider] - 07/11/18 2:30 pm (Patient will be seeing the Nurse Practitioner. Thank you) - Attending Attestation I examined this patient and my medical decision-making was reviewed with Aretha Sheikh CNP. I agree with the documented findings, disposition and treatment plan as described except to the extent set forth below.
[2018-07-04 10:47] LABS: Estimated Average Glucose 140 mg/dl; Hemoglobin A1C 6.5 %
--- NOTE | 2018-07-04 14:45 | Internal Med Progress Note ---
Hospitalist Progress Note - Encounter Date of Encounter: 07/04/18 Time of Encounter: 07:45 - Subjective Interval History: he is feeling well, no over night events, tolerating diet. pain is controlled denies fever, chills, N/v/d, falls, chest pain, SOb, palpitations, cough - Exam Vitals: Temp Pulse Resp BP Pulse Ox 98.5 F 73 18 150/88 98 07/04/18 12:53 07/04/18 12:53 07/04/18 12:53 07/04/18 12:53 07/04/18 12:53 Exam: General: Patient is alert, oriented, no acute distress, morbidly obese Head: atraumatic, normocephalic, Eye: normal appearance, PERRL, no scleral icterus, no conjunctival injection ENT: mucous membranes moist, normal external ear exam Neck: normal inspection, trachea midline, full ROM, no carotid bruits Chest: normal inspection, symmetric chest rise Respiratory: decreased breath sounds secondary to body habitus Good respiratory effort. Bilateral breath sounds are clear without wheezing, crackles, or rhonchi. Cardiovascular: decreased heart sounds secondary to body habitus, Regular rate and rhythm. s1 and s2 No clicks, rubs, gallops, or murmors. Abdomen: Bowel sounds present normoactive x-4 quadrants. Abdomen is soft, nondistended. no Epigastric tenderness. No guarding or rebound. No organomegaly noted, obese musculoskeletal: Spontaneously moving all extremities. 3 edema of the lower extremities below the knee R>L. has erythema of the lower extremity area is marked. has 3x3 cm blister above medial malleolous , warmth associated with bilateral lower extremity. Skin: warm, dry, intact. Neuro: Alert and oriented x4. Sensation light touch intact. Cranial nerves 2- 12 is intact. Not aphasic, rapid hand movements intact, [id number] intact, Psych: Patient's affect is normal - Assessment and Plan (1) Cellulitis of both lower extremities Current Visit: Yes Status: Acute Assessment and Plan: bilateral lower extremity cellulitis below the knee and possibly venous stasis on IV vancomycin and Zosyn Bcx sent will follow ID consulted recommendations appreciated wound care consult (2) DVT of leg (deep venous thrombosis) Current Visit: Yes Status: Suspected Assessment and Plan: patient has history of right popliteal vein DVT and he reports that he was on prolonged course of coumadin he reports that his coumadin was discontinued because reat US had shown ? resolution of his DVT DVT study on 07/02/18- POSITIVE DVT right lower extremity+Popliteal vein partial chronic thrombus. he was started on therapeutic lovenox will bridge him with coumadin follow INR in the AM (3) Type 2 diabetes mellitus Current Visit: No Status: Acute Assessment and Plan: Diet controlled diabetic. Accu checks q6. A1c in AM (4) Hypertension Current Visit: No Status: Chronic Assessment and Plan: continue losartan 50 mg daily follow VS as perprotocol will titrate BP medication as per BP (5) Morbidly obese Current Visit: Yes Status: Acute Assessment and Plan: BMI 47 was counseled on nutrition nutrition consult (6) Ulcer of right leg Current Visit: Yes Status: Acute Assessment and Plan: podiatry consulted will follow recommendations wound care consulted o IV Abx ID on board Recommend the patient lose weight, keep legs elevated, apply moisturizer lotion to intact skin daily, and wear compression stockings during daytime hours. (7) Lower extremity venous stasis Current Visit: No Status: Acute Assessment and Plan: management as per above - Time Spent with Patient Total time spent is greater than 50% in coordination of care (as documented) at patient's floor/unit and/or counseling patient: Internal Medicine: Result - Labs CBC & Chem 7: 07/04/18 04:11 07/04/18 04:11 Labs: Short CBC 07/04/18 Range/Units 04:11 WBC 7.0 (4.3-11.1) K/mcL Hgb 11.5 L (12.9-16.9) g/dL Hct 36.4 L (37.5-50.1) % Plt Count 230 (140-400) K/mcL BMP 07/04/18 04:11 Sodium 138 Potassium 3.7 Chloride 104 Carbon Dioxide 26 BUN 12 Creatinine 0.81 Glucose 130 H Calcium 9.0 - ABG Interpretation ABG results: PT/INR, D-dimer PT 12.7 Seconds (9.4-12.1) H 07/04/18 04:11 - VTE Reasons for not Prescribing Prophylaxis: Treatment not Indicated - Low risk for VTE Consult Discharge Plan - Plan Referrals: Phuong Bearden MD [Primary Care Provider] - 07/11/18 2:30 pm (Patient will be seeing the Nurse Practitioner. Thank you) (2) DVT of leg (deep venous thrombosis) Qualifiers: Affected thrombotic vein of extremity: popliteal Chronicity: chronic Laterality: right Qualified Code(s): I82.531 - Chronic embolism and thrombosis of right popliteal vein (3) Type 2 diabetes mellitus Qualifiers: Diabetes mellitus termite treater insulin use: without termite treater use Diabetes mellitus complication status: with skin complications Diabetes mellitus complication detail: with other skin complication Qualified Code(s): E11.628 - Type 2 diabetes mellitus with other skin complications (4) Hypertension Qualifiers: Hypertension type: essential hypertension Qualified Code(s): I10 - Essential (primary) hypertension (6) Ulcer of right leg Qualifiers: Non-pressure ulcer stage: limited to breakdown of skin Qualified Code(s): L97.911 - Non-pressure chronic ulcer of unspecified part of right lower leg limited to breakdown of skin
[2018-07-04] MEDS ORDERED: *HR* Warfarin 7.5 MG TABLET PO ONE (18:00)
[2018-07-04] MEDS ORDERED: 0.9 % Sodium Chloride Mini Bag 100 ML ONE (23:40)
[2018-07-05 06:02] LABS: Hemoglobin 11.9 g/dL (12.9-16.9); Mean Corpuscular HGB Conc 31.3 g/dL (31.6-35.5); Mean Corpuscular Hemoglobin 25.4 pg (28.0-33.3); Mean Corpuscular Volume 81.2 fL (83.0-100.0); Mean Platelet Volume 10.3 fL (9.4-12.4); Platelet Count 271 K/mcL (140-400); Red Blood Count 4.68 M/mcL (4.19-5.50); Red Cell Distribution Width 15.6 % (11.5-14.5)
[2018-07-05 06:05] LABS: INR 1.4
[2018-07-05 06:29] LABS: BUN/Creatinine Ratio 14 (6-26); Blood Urea Nitrogen 12 mg/dL (6-20); Carbon Dioxide 24 mEq/L (23-29); Chloride 105 mEq/L (98-107); Glucose 128 mg/dL (70-105); Osmolality,Calculated 287 (280-300); Potassium 3.8 mEq/L (3.5-5.1); Sodium 138 mEq/L (136-145); eGFR For Non-African Americans > 60 (> 60)
[2018-07-05] MEDS: *HR* Enoxaparin 150 MG/ML SYRINGE SQ SCH ×2 (06:35→18:51)
[2018-07-05] MEDS: Budesonide/Formoterol 160/4.5 1 PUFF INH IH SCH ×2 (08:09→20:34)
[2018-07-05] MEDS: Furosemide 20 MG TABLET PO SCH (09:26)
[2018-07-05] MEDS: Piperacillin/Tazobactam 3.375 GM in 0.9 % Sodium Chloride Mini Bag 100 ML IVPB SCH ×2 (11:30→19:11)
--- NOTE | 2018-07-05 11:46 | Internal Med Progress Note ---
Hospitalist Progress Note - Encounter Date of Encounter: 07/05/18 Time of Encounter: 08:00 - Subjective Interval History: he is feeling well, no over night events, tolerating diet. pain is controlled denies fever, chills, N/v/d, falls, chest pain, SOb, palpitations, cough - Exam Vitals: Temp Pulse Resp BP Pulse Ox 97.9 F 71 16 154/89 94 07/05/18 11:41 07/05/18 11:41 07/05/18 11:41 07/05/18 11:41 07/05/18 11:41 Exam: General: Patient is alert, oriented, no acute distress, morbidly obese Head: atraumatic, normocephalic, Eye: normal appearance, PERRL, no scleral icterus, no conjunctival injection ENT: mucous membranes moist, normal external ear exam Neck: normal inspection, trachea midline, full ROM, no carotid bruits Chest: normal inspection, symmetric chest rise Respiratory: decreased breath sounds secondary to body habitus Good respiratory effort. Bilateral breath sounds are clear without wheezing, crackles, or rhonchi. Cardiovascular: decreased heart sounds secondary to body habitus, Regular rate and rhythm. s1 and s2 No clicks, rubs, gallops, or murmors. Abdomen: Bowel sounds present normoactive x-4 quadrants. Abdomen is soft, nondistended. no Epigastric tenderness. No guarding or rebound. No organomegaly noted, obese musculoskeletal: Spontaneously moving all extremities. 3 edema of the lower extremities below the knee R>L. has erythema of the lower extremity area is marked. has 3x3 cm blister above medial malleolous , warmth associated with bilateral lower extremity. Skin: warm, dry, intact. Neuro: Alert and oriented x4. Sensation light touch intact. Cranial nerves 2- 12 is intact. Not aphasic, rapid hand movements intact, [id number] intact, Psych: Patient's affect is normal - Assessment and Plan (1) Cellulitis of both lower extremities Current Visit: Yes Status: Acute Assessment and Plan: bilateral lower extremity cellulitis below the knee and possibly venous stasis on IV vancomycin and Zosyn Bcx sent will follow ID consulted recommendations appreciated wound care consult (2) DVT of leg (deep venous thrombosis) Current Visit: Yes Status: Suspected Assessment and Plan: patient has history of right popliteal vein DVT and he reports that he was on prolonged course of coumadin he reports that his coumadin was discontinued because reat US had shown ? resolution of his DVT DVT study on 07/02/18- POSITIVE DVT right lower extremity+Popliteal vein partial chronic thrombus. he was started on therapeutic lovenox bridging him with coumadin follow INR in the AM (3) Ulcer of right leg Current Visit: Yes Status: Acute Assessment and Plan: podiatry consulted will follow recommendations wound care consulted o IV Abx ID on board Recommend the patient lose weight, keep legs elevated, apply moisturizer lotion to intact skin daily, and wear compression stockings during daytime hours. (4) Lower extremity venous stasis Current Visit: No Status: Acute Assessment and Plan: management as per above (5) Type 2 diabetes mellitus Current Visit: No Status: Acute Assessment and Plan: Diet controlled diabetic. Accu checks q6. A1c in AM (6) Hypertension Current Visit: No Status: Chronic Assessment and Plan: continue losartan 50 mg daily follow VS as perprotocol will titrate BP medication as per BP (7) Morbidly obese Current Visit: Yes Status: Acute Assessment and Plan: BMI 47 was counseled on nutrition nutrition consult - Time Spent with Patient Total time spent is greater than 50% in coordination of care (as documented) at patient's floor/unit and/or counseling patient: Internal Medicine: Result - Labs CBC & Chem 7: 07/05/18 05:22 07/05/18 05:22 Labs: Short CBC 07/05/18 Range/Units 05:22 WBC 6.0 (4.3-11.1) K/mcL Hgb 11.9 L (12.9-16.9) g/dL Hct 38.0 (37.5-50.1) % Plt Count 271 (140-400) K/mcL BMP 07/05/18 05:22 Sodium 138 Potassium 3.8 Chloride 105 Carbon Dioxide 24 BUN 12 Creatinine 0.84 Glucose 128 H Calcium 9.0 - ABG Interpretation ABG results: PT/INR, D-dimer PT 16.0 Seconds (9.4-12.1) H 07/05/18 05:22 - VTE Reasons for not Prescribing Prophylaxis: Treatment not Indicated - Low risk for VTE Consult Discharge Plan - Plan Referrals: Phuong Bearden MD [Primary Care Provider] - 07/11/18 2:30 pm (Patient will be seeing the Nurse Practitioner. Thank you) (2) DVT of leg (deep venous thrombosis) Qualifiers: Affected thrombotic vein of extremity: popliteal Chronicity: chronic Laterality: right Qualified Code(s): I82.531 - Chronic embolism and thrombosis of right popliteal vein (3) Ulcer of right leg Qualifiers: Non-pressure ulcer stage: limited to breakdown of skin Qualified Code(s): L97.911 - Non-pressure chronic ulcer of unspecified part of right lower leg limited to breakdown of skin (5) Type 2 diabetes mellitus Qualifiers: Diabetes mellitus long term care administrator insulin use: without long term care administrator use Diabetes mellitus complication status: with skin complications Diabetes mellitus complication detail: with other skin complication Qualified Code(s): E11.628 - Type 2 diabetes mellitus with other skin complications (6) Hypertension Qualifiers: Hypertension type: essential hypertension Qualified Code(s): I10 - Essential (primary) hypertension
--- NOTE | 2018-07-05 13:49 | Podiatry Consult Note ---
Date of Encounter: 07/05/18 Time of Encounter: 13:46 Assessment and Plan (1) Chronic venous hypertension (idiopathic) with ulcer of right lower extremity Current visit: Yes Status: Acute assessment: #1 venous ulceration right distal tibia as measured #2 chronic venous hypertension with ulceration right with venous insufficiency bilaterally #3 DVT of right leg #4 COPD plan: #1 begin local wound carewith mild compression and elevation #2 agree with present antibiotic therapy #3educated on chronic venous hypertension and ulcerationand venous insufficiency mainstays of treatment which are compression and elevation #4 will follow-up in wound care clinic once discharged July 09 preferably this coming Saturday, History of Present Illness Chief complaint: Chronic venous hypertension with ulceration right HPI: Mr. Baca is a 58 year old male , with chronic venous insuffciency/chronic venous hypertension with history of DVT of the right popliteal space Patient states he been diagnosed with a DVT approximately 3 years agoaand had been anticoagulated first long as 2 years post diagnosis , this was approximately 1 year ago that his aticoagulation theay have been discontinued. He began complaining of right leg pain last week. He had increasing cellulitis of both legs with an open ulceration of the distal medial tibia right side. he had been admittedfor intavenous antibiotics and presently is being bridged , to Coumadin. He is presently witout chest pain, nausea, fever, chills Past Med Surg Social Fam HX - Past Medical History Medical history: COPD, DVT, hypertension, other Additional medical history: asthma, cellulitis, DVT Psychiatric history: no psych history - Past Surgical History Surgical History: other Additional surgical history: back surgery - Social History Smoking Status: Former smoker Smokeless Tobacco Status: No Alcohol use: none Drug use: none Medications and Allergies Albuterol Sulfate [Proair Hfa] 2 puff IH Q4-6H PRN 03/23/18 [History] Budesonide/Formoterol 160/4.5 [Symbicort 160/4.5] 2 puff IH BIDR 03/23/18 [ History] Ferrous Sulfate [Iron] 325 mg PO DAILY 03/23/18 [History] Furosemide [Lasix] 20 mg PO DAILY 03/23/18 [History] Losartan [Cozaar] 50 mg PO DAILY 03/23/18 [History] Montelukast [Singulair] 10 mg PO DAILY 03/23/18 [History] Omeprazole [PriLOSEC] 20 mg PO DAILY 03/23/18 [History] Potassium Chloride [Klor-Con Sprinkle] 10 meq PO DAILY 03/23/18 [History] 3 Allergy/AdvReac Type Severity Reaction Status Date / Time No Known Allergies Allergy Verified 09/30/15 22:29 All Systems Reviewed: The remainder of the systems were reviewed and are negative He is without chest pain nausea, SOB, fever, chill, rigor. No bowel or bladder dysfunctrion. No LOPS but with tingling likely secondary to +3/4 edema of both legs and ankles and feet. Physical Exam - Constitutional Vitals: Temp Pulse Resp BP Pulse Ox 97.9 F 71 16 154/89 94 07/05/18 11:41 07/05/18 11:41 07/05/18 11:41 07/05/18 11:41 07/05/18 11:41 General appearance: cooperative, morbidly obese, no acute distress - Expanded Lower Extremities Exam Lower Leg exam: Present: erythema ( resolvingg cellulitis of both legss as far proximal as the tibial tubercle originally. Now isolated to the distaal one third of the tibia), swelling, tenderness (we observe a venous ulceration on the disal medial aspect of the distal right tibia measuring 3.5 cm wide 3 cm in length 0.2 cm in depth. no undermining no sinus tract no tunneling no fluctuance no odor no purulence, no spontaneous weeping , no purulence. Wound edges are intact. 80% granulation tissue 20% fibrin) Ankle exam: Present: erythema, swelling ( limited range of motion of the ankle secondary to the edema of both feet and legs) Foot/Toe exam: Present: swelling Neuro vascular tendon exam: Present: decreased fine/light touch ( patient complaining of paresthesias.) Gait: Present: not tested/not observed, observed and limited by pain - Neurological Exam Neurological exam: Present: oriented X3 Additional comments: patient exhibits wide broad-based gait secondary to body habitus - Vascular Capillary Refill: less than 3 seconds (+3/4 edema pitting.from base of toes to ankle) - Ankle & Foot Foot swelling location: dorsal, medial, lateral, toes Tingling/Numbness: foot, toes Results - Labs Result Diagrams: 07/05/18 05:22 07/05/18 05:22 Labs: Abnormal lab results Hgb 11.9 g/dL (12.9-16.9) L 07/05/18 05:22 MCV 81.2 fL (83.0-100.0) L 07/05/18 05:22 MCH 25.4 pg (28.0-33.3) L 07/05/18 05:22 MCHC 31.3 g/dL (31.6-35.5) L 07/05/18 05:22 RDW 15.6 % (11.5-14.5) H 07/05/18 05:22 PT 16.0 Seconds (9.4-12.1) H 07/05/18 05:22 Glucose 128 mg/dL (70-105) H 07/05/18 05:22 POC Glucose 124 mg/dL (70-99) H 07/05/18 11:43 Hemoglobin A1c 6.5 % (-5.6) H 07/04/18 04:11 Urine Clarity Cloudy (Clear) A 07/02/18 19:00 Ur Squamous Epith Cells Many per lpf (None-Few) H 07/02/18 19:00 Urine Bacteria Moderate per hpf (None-Few) H 07/02/18 19:00 H & H 07/05/18 Range/Units 05:22 Hgb 11.9 L (12.9-16.9) g/dL Hct 38.0 (37.5-50.1) % All other labs normal. Consult Discharge Plan - Plan Referrals: Phuong Bearden MD [Primary Care Provider] - 07/11/18 2:30 pm (Patient will be seeing the Nurse Practitioner. Thank you)
[2018-07-05] MEDS ORDERED: *HR* Warfarin 5 MG TABLET PO ONE (18:00)
[2018-07-06] MEDS: Piperacillin/Tazobactam 3.375 GM in 0.9 % Sodium Chloride Mini Bag 100 ML IVPB SCH ×3 (00:45→15:25)
[2018-07-06] MEDS: *HR* Enoxaparin 150 MG/ML SYRINGE SQ SCH ×2 (05:26→18:19)
[2018-07-06 05:32] LABS: Hematocrit 38.7 % (37.5-50.1); Hemoglobin 12.3 g/dL (12.9-16.9); Mean Corpuscular HGB Conc 31.8 g/dL (31.6-35.5); Mean Corpuscular Hemoglobin 25.8 pg (28.0-33.3); Mean Corpuscular Volume 81.1 fL (83.0-100.0); Mean Platelet Volume 10.2 fL (9.4-12.4); Platelet Count 277 K/mcL (140-400); Red Blood Count 4.77 M/mcL (4.19-5.50); Red Cell Distribution Width 15.5 % (11.5-14.5)
[2018-07-06 05:36] LABS: INR 1.7
[2018-07-06 05:50] LABS: BUN/Creatinine Ratio 16 (6-26); Blood Urea Nitrogen 13 mg/dL (6-20); Calcium 9.1 mg/dL (8.6-10.3); Carbon Dioxide 26 mEq/L (23-29); Chloride 103 mEq/L (98-107); Glucose 126 mg/dL (70-105); Osmolality,Calculated 288 (280-300); Potassium 3.8 mEq/L (3.5-5.1); Sodium 138 mEq/L (136-145); eGFR For Non-African Americans > 60 (> 60)
[2018-07-06] MEDS: Furosemide 20 MG TABLET PO SCH (08:44)
[2018-07-06] MEDS: Budesonide/Formoterol 160/4.5 1 PUFF INH IH SCH ×2 (10:54→19:34)
--- NOTE | 2018-07-06 13:10 | Internal Med Progress Note ---
Hospitalist Progress Note - Encounter Date of Encounter: 07/06/18 Time of Encounter: 08:30 - Subjective Interval History: he is feeling well, no over night events, tolerating diet. pain is controlled denies fever, chills, N/v/d, falls, chest pain, SOb, palpitations, cough - Exam Vitals: Temp Pulse Resp BP Pulse Ox 98.1 F 76 14 132/74 94 07/06/18 11:00 07/06/18 11:07/06/18 11:07/06/18 11:07/06/18 11:00 Exam: General: Patient is alert, oriented, no acute distress, morbidly obese Head: atraumatic, normocephalic, Eye: normal appearance, PERRL, no scleral icterus, no conjunctival injection ENT: mucous membranes moist, normal external ear exam Neck: normal inspection, trachea midline, full ROM, no carotid bruits Chest: normal inspection, symmetric chest rise Respiratory: decreased breath sounds secondary to body habitus Good respiratory effort. Bilateral breath sounds are clear without wheezing, crackles, or rhonchi. Cardiovascular: decreased heart sounds secondary to body habitus, Regular rate and rhythm. s1 and s2 No clicks, rubs, gallops, or murmors. Abdomen: Bowel sounds present normoactive x-4 quadrants. Abdomen is soft, nondistended. no Epigastric tenderness. No guarding or rebound. No organomegaly noted, obese musculoskeletal: Spontaneously moving all extremities. 3 edema of the lower extremities below the knee R>L. bilateral lower extremity wrapped with PARVIN bandage Skin: warm, dry, intact. Neuro: Alert and oriented x4. Sensation light touch intact. Cranial nerves 2- 12 is intact. Not aphasic, rapid hand movements intact, [id number] intact, Psych: Patient's affect is normal - Assessment and Plan (1) Cellulitis of both lower extremities Current Visit: Yes Status: Acute Assessment and Plan: bilateral lower extremity cellulitis below the knee and possibly venous stasis on IV vancomycin and Zosyn Bcx sent 07/02 ID consulted recommendations appreciated wound care consulted (2) DVT of leg (deep venous thrombosis) Current Visit: Yes Status: Suspected Assessment and Plan: patient has history of right popliteal vein DVT and he reports that he was on prolonged course of coumadin he reports that his coumadin was discontinued because reat US had shown ? resolution of his DVT DVT study on 07/02/18- POSITIVE DVT right lower extremity+Popliteal vein partial chronic thrombus. he was started on therapeutic lovenox bridging him with coumadin follow INR in the AM IR on 07/06/18 1.7 (3) Ulcer of right leg Current Visit: Yes Status: Acute Assessment and Plan: podiatry recommendations appreciated wound care consulted on IV Abx ID on board Recommend the patient lose weight, keep legs elevated, apply moisturizer lotion to intact skin daily, and wear compression stockings during daytime hours. follow-up in wound care clinic once discharged July 09 preferably this coming Saturday, (4) Lower extremity venous stasis Current Visit: No Status: Acute Assessment and Plan: management as per above (5) Type 2 diabetes mellitus Current Visit: No Status: Acute Assessment and Plan: Diet controlled diabetic as OP - will start him on metformin on discharge Accu checks q6. A1c 6.5 needs to have OP eye exam, microalbumin, urine:protein:cr ratio and continue podiatry follow up (6) Hypertension Current Visit: No Status: Chronic Assessment and Plan: continue losartan 50 mg daily follow VS as per protocol will titrate BP medication as per BP (7) Morbidly obese Current Visit: Yes Status: Acute Assessment and Plan: BMI 47 was counseled on nutrition nutrition consult - Time Spent with Patient Total time spent is greater than 50% in coordination of care (as documented) at patient's floor/unit and/or counseling patient: Internal Medicine: Result - Labs CBC & Chem 7: 07/06/18 05:02 07/06/18 05:02 Labs: Short CBC 07/06/18 Range/Units 05:02 WBC 6.5 (4.3-11.1) K/mcL Hgb 12.3 L (12.9-16.9) g/dL Hct 38.7 (37.5-50.1) % Plt Count 277 (140-400) K/mcL BMP 07/06/18 05:02 Sodium 138 Potassium 3.8 Chloride 103 Carbon Dioxide 26 BUN 13 Creatinine 0.80 Glucose 126 H Calcium 9.1 - ABG Interpretation ABG results: PT/INR, D-dimer PT 19.0 Seconds (9.4-12.1) H 07/06/18 05:02 - VTE Reasons for not Prescribing Prophylaxis: Treatment not Indicated - Low risk for VTE Documentation of Mechanical Device: Graduated compression elastic hosiery Consult Discharge Plan - Plan Referrals: Phuong Bearden MD [Primary Care Provider] - 07/11/18 2:30 pm (Patient will be seeing the Nurse Practitioner. Thank you) (2) DVT of leg (deep venous thrombosis) Qualifiers: Affected thrombotic vein of extremity: popliteal Chronicity: chronic Laterality: right Qualified Code(s): I82.531 - Chronic embolism and thrombosis of right popliteal vein (3) Ulcer of right leg Qualifiers: Non-pressure ulcer stage: limited to breakdown of skin Qualified Code(s): L97.911 - Non-pressure chronic ulcer of unspecified part of right lower leg limited to breakdown of skin (5) Type 2 diabetes mellitus Qualifiers: Diabetes mellitus care home insulin use: without middle or intermediate school principal use Diabetes mellitus complication status: with skin complications Diabetes mellitus complication detail: with other skin complication Qualified Code(s): E11.628 - Type 2 diabetes mellitus with other skin complications (6) Hypertension Qualifiers: Hypertension type: essential hypertension Qualified Code(s): I10 - Essential (primary) hypertension
[2018-07-06] MEDS ORDERED: *HR* Warfarin 4 MG TABLET PO ONE (18:00)
[2018-07-07] MEDS: Piperacillin/Tazobactam 3.375 GM in 0.9 % Sodium Chloride Mini Bag 100 ML IVPB SCH ×3 (00:38→15:27)
[2018-07-07 03:00] LABS: Hematocrit 38.1 % (37.5-50.1); Hemoglobin 12.3 g/dL (12.9-16.9); Mean Corpuscular HGB Conc 32.3 g/dL (31.6-35.5); Mean Corpuscular Hemoglobin 26.6 pg (28.0-33.3); Mean Corpuscular Volume 82.3 fL (83.0-100.0); Mean Platelet Volume 10.5 fL (9.4-12.4); Platelet Count 273 K/mcL (140-400); Red Blood Count 4.63 M/mcL (4.19-5.50); Red Cell Distribution Width 15.4 % (11.5-14.5)
[2018-07-07 03:11] LABS: INR 1.8; Prothrombin Time 19.8 Seconds (9.4-12.1)
[2018-07-07 03:25] LABS: BUN/Creatinine Ratio 19 (6-26); Blood Urea Nitrogen 15 mg/dL (6-20); Calcium 8.8 mg/dL (8.6-10.3); Carbon Dioxide 24 mEq/L (23-29); Chloride 106 mEq/L (98-107); Glucose 161 mg/dL (70-105); Osmolality,Calculated 290 (280-300); Potassium 3.7 mEq/L (3.5-5.1); Sodium 138 mEq/L (136-145); eGFR For Non-African Americans > 60 (> 60)
[2018-07-07] MEDS: *HR* Enoxaparin 150 MG/ML SYRINGE SQ SCH ×2 (05:36→17:46)
[2018-07-07] MEDS: Furosemide 20 MG TABLET PO SCH (08:45)
[2018-07-07] MEDS: Budesonide/Formoterol 160/4.5 1 PUFF INH IH SCH ×2 (10:36→19:54)
--- NOTE | 2018-07-07 11:07 | Internal Med Progress Note ---
Hospitalist Progress Note - Encounter Date of Encounter: 07/07/18 Time of Encounter: 08:30 - Subjective Interval History: he is feeling well, no over night events, tolerating diet. Reports improvement in his swelling, he reports the ulcer of the right lower extremity looks better pain is controlled denies fever, chills, N/v/d, falls, chest pain, SOb, palpitations, cough - Exam Vitals: Temp Pulse Resp BP Pulse Ox 98.1 F 76 16 145/85 96 07/07/18 10:07/07/18 10:07/07/18 10:07/07/18 10:07/07/18 10:28 Exam: General: Patient is alert, oriented, no acute distress, morbidly obese Head: atraumatic, normocephalic, Eye: normal appearance, PERRL, no scleral icterus, no conjunctival injection ENT: mucous membranes moist, normal external ear exam Neck: normal inspection, trachea midline, full ROM, no carotid bruits Chest: normal inspection, symmetric chest rise Respiratory: decreased breath sounds secondary to body habitus Good respiratory effort. Bilateral breath sounds are clear without wheezing, crackles, or rhonchi. Cardiovascular: decreased heart sounds secondary to body habitus, Regular rate and rhythm. s1 and s2 No clicks, rubs, gallops, or murmors. Abdomen: Bowel sounds present normoactive x-4 quadrants. Abdomen is soft, nondistended. no Epigastric tenderness. No guarding or rebound. No organomegaly noted, obese musculoskeletal: Spontaneously moving all extremities. 3 edema of the lower extremities below the knee R>L. bilateral lower extremity wrapped with PARVIN bandage Skin: warm, dry, intact. Neuro: Alert and oriented x4. Sensation light touch intact. Cranial nerves 2- 12 is intact. Not aphasic, rapid hand movements intact, [id number] intact, Psych: Patient's affect is normal - Assessment and Plan (1) Cellulitis of both lower extremities Current Visit: Yes Status: Acute Assessment and Plan: bilateral lower extremity cellulitis below the knee and possibly venous stasis on IV vancomycin and Zosyn Bcx sent 07/02 ID consulted recommendations appreciated - will follow recommendations for Po Abx wound care consulted (2) DVT of leg (deep venous thrombosis) Current Visit: Yes Status: Suspected Assessment and Plan: patient has history of right popliteal vein DVT and he reports that he was on prolonged course of coumadin he reports that his coumadin was discontinued because reat US had shown ? resolution of his DVT DVT study on 07/02/18- POSITIVE DVT right lower extremity+Popliteal vein partial chronic thrombus. he was started on therapeutic lovenox bridging him with coumadin follow INR in the AM IR on 07/07/18 - 1.8 (3) Ulcer of right leg Current Visit: Yes Status: Acute Assessment and Plan: podiatry recommendations appreciated wound care consulted on IV Abx ID on board - will follow recommendations for by mouth antibiotics Recommend the patient lose weight, keep legs elevated, apply moisturizer lotion to intact skin daily, and wear compression stockings during daytime hours. follow-up in wound care clinic once discharged July 09 preferably this coming Saturday, (4) Lower extremity venous stasis Current Visit: No Status: Acute Assessment and Plan: management as per above (5) Type 2 diabetes mellitus Current Visit: No Status: Acute Assessment and Plan: Diet controlled diabetic as OP - will start him on metformin on discharge Accu checks q6. A1c 6.5 needs to have OP eye exam, microalbumin, urine:protein:cr ratio and continue podiatry follow up (6) Hypertension Current Visit: No Status: Chronic Assessment and Plan: continue losartan 50 mg daily follow VS as per protocol will titrate BP medication as per BP (7) Morbidly obese Current Visit: Yes Status: Acute Assessment and Plan: BMI 47 was counseled on nutrition nutrition consulted - Time Spent with Patient Total time spent is greater than 50% in coordination of care (as documented) at patient's floor/unit and/or counseling patient: Internal Medicine: Result - Labs CBC & Chem 7: 07/07/18 02:30 07/07/18 02:30 Labs: Short CBC 07/07/18 Range/Units 02:30 WBC 8.2 (4.3-11.1) K/mcL Hgb 12.3 L (12.9-16.9) g/dL Hct 38.1 (37.5-50.1) % Plt Count 273 (140-400) K/mcL BMP 07/07/18 02:30 Sodium 138 Potassium 3.7 Chloride 106 Carbon Dioxide 24 BUN 15 Creatinine 0.80 Glucose 161 H Calcium 8.8 - ABG Interpretation ABG results: PT/INR, D-dimer PT 19.8 Seconds (9.4-12.1) H 07/07/18 02:30 - VTE Reasons for not Prescribing Prophylaxis: Treatment not Indicated - Low risk for VTE Documentation of Mechanical Device: Graduated compression elastic hosiery Consult Discharge Plan - Plan Additional Instructions: For possible discharge on 07/08 Will follow ID recommendations for oral antibiotics along with duration To follow-up with wound care To follow-up with podiatry To follow his INR for right leg DVT Wound care referral Referrals: Phuong Bearden MD [Primary Care Provider] - 07/11/18 2:30 pm (Patient will be seeing the Nurse Practitioner. Thank you) (2) DVT of leg (deep venous thrombosis) Qualifiers: Affected thrombotic vein of extremity: popliteal Chronicity: chronic Laterality: right Qualified Code(s): I82.531 - Chronic embolism and thrombosis of right popliteal vein (3) Ulcer of right leg Qualifiers: Non-pressure ulcer stage: limited to breakdown of skin Qualified Code(s): L97.911 - Non-pressure chronic ulcer of unspecified part of right lower leg limited to breakdown of skin (5) Type 2 diabetes mellitus Qualifiers: Diabetes mellitus assisted insulin use: without intermodal dispatcher use Diabetes mellitus complication status: with skin complications Diabetes mellitus complication detail: with other skin complication Qualified Code(s): E11.628 - Type 2 diabetes mellitus with other skin complications (6) Hypertension Qualifiers: Hypertension type: essential hypertension Qualified Code(s): I10 - Essential (primary) hypertension
--- NOTE | 2018-07-07 13:29 | Electrocardiograph Report ---
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
[2018-07-07] MEDS ORDERED: *HR* Warfarin 5 MG TABLET PO ONE (18:00)
[2018-07-08] MEDS: Piperacillin/Tazobactam 3.375 GM in 0.9 % Sodium Chloride Mini Bag 100 ML IVPB SCH ×3 (01:13→16:53)
[2018-07-08] MEDS: *HR* Enoxaparin 150 MG/ML SYRINGE SQ SCH ×2 (05:23→16:54)
[2018-07-08 07:14] LABS: INR 1.9; Prothrombin Time 21.6 Seconds (9.4-12.1)
[2018-07-08] MEDS: Furosemide 20 MG TABLET PO SCH (09:35)
[2018-07-08] MEDS: Budesonide/Formoterol 160/4.5 1 PUFF INH IH SCH (10:55)
--- NOTE | 2018-07-08 13:39 | Discharge Summary ---
- NOTES TO OUTPATIENT PROVIDER Notes to Outpatient Provider: follow INR on 07/09/18 AM. follo with ID and podiatry. needs to follow with A1c 6.5 on 07/04/18- started on metformin. follow BMP ( he is on bactrim) Orders not resulted at time of discharge: Pending orders 07/08/18 17:00 Vancomycin,Trough Timed 07/09/18 04:00 PT/INR [Prothrombin Time INR] [COAG] AM 0400 Date of Encounter: 07/08/18 Time of Encounter: 13:34 - Discharge Diagnosis (1) Cellulitis of both lower extremities Priority: Primary Status: Acute (2) DVT of leg (deep venous thrombosis) Priority: Secondary Status: Suspected Qualifiers: Affected thrombotic vein of extremity: popliteal Chronicity: chronic Laterality: right Qualified Code(s): I82.531 - Chronic embolism and thrombosis of right popliteal vein (3) Ulcer of right leg Priority: Secondary Status: Acute Qualifiers: Non-pressure ulcer stage: limited to breakdown of skin Qualified Code(s): L97.911 - Non-pressure chronic ulcer of unspecified part of right lower leg limited to breakdown of skin (4) Lower extremity venous stasis Priority: Secondary Status: Acute (5) Type 2 diabetes mellitus Priority: Secondary Status: Acute Qualifiers: Diabetes mellitus extermination inspector insulin use: without extermination inspector use Diabetes mellitus complication status: with skin complications Diabetes mellitus complication detail: with other skin complication Qualified Code(s): E11.628 - Type 2 diabetes mellitus with other skin complications (6) Hypertension Priority: Secondary Status: Chronic Qualifiers: Hypertension type: essential hypertension Qualified Code(s): I10 - Essential (primary) hypertension (7) Morbidly obese Priority: Secondary Status: Acute Hospital course: Mr. Baca is a 58 year old male with history of DVT no on AC, COPD, diet controlled DM2 and cellulitis presented to the ED with complaint of bilateral lower extremity redness and warmth. hs symptoms had started 3 days before admission and had progressively worsened. Has had recurrent bilateral lower extremity cellulitis with most recent hospitalization for same three months ago. PCP has set up referral to infectious disease and has appointment set for 07/17/2018. as per chart review he was treated with levaquin and bactrim as out patient in march 2018. on admission examination right leg showed greater swelling than the left. DVT study was performed and it was positive for chronic popliteal vein DVT. he was starte don lovenox therapeutic dose adn was bridged with coumadin. In addition he was started on IV antibiotics. ID was consulted and recommendations were followed. Podiatry was consulted for right lower extremity ulcer and recommendations were followed. INR followed was 1.9 on 07/08. He received 2 doses of therapeutic Lovenox on 07/08. He was given appointment for INR check in the morning of 07/09. Primary care appointment was made for 07/09 for management of DVT and INR. we discussed risk of PE, bleeding and recurrent DVT extensively. he understands the risks and benefits associated with Anticoagulation. he understands that he will need close monitoring of his INR. Hemoglobin A1c was 6.5 so He was started on metformin. he was counseled on nutrition, DM, weight loss and importance of follow up extensively. He was educated on chronic venous hypertension and ulcerationand venous insufficiency mainstays of treatment which are compression and elevation will follow-up in wound care clinic once discharged July 09 preferably this coming Saturday ID recommendations for OP Abx appreciated. his potassium tablets were stopped as his losartan dosage was increased for better BP control, in addition he was started on Bactrim for LE cellulitis which can increase his potassium. for PCP to follow BMP. Doppler of LE Left lower extremity: normal superficial and deep exam. The right popliteal vein was partially compressible. Flow is continuous and did augment. Findings consistent with chronic thrombosis of the right popliteal vein Discharge discussed with: patient, strategic planning consultant - Time Spent with Patient Total time spent providing and/or coordinating discharge services: Less than 30 minutes - Discharge Medications Prescriptions: Amoxicillin/Clavulanate [Augmentin] 875 mg PO BIDWM 7 Days #14 tablet Losartan [Cozaar] 50 mg PO DAILY #30 tablet metFORMIN [Glucophage] 500 mg PO 0800 #30 tablet Sulfamethoxazole/Trimeth DS [Bactrim DS] 1 each PO BID 7 Days #14 tablet Warfarin [Coumadin] 5 mg PO 1800 #10 tablet Home Medications: Albuterol Sulfate [Proair Hfa] 2 puff IH Q4-6H PRN 03/23/18 [History] Budesonide/Formoterol 160/4.5 [Symbicort 160/4.5] 2 puff IH BIDR 03/23/18 [ History] Ferrous Sulfate [Iron] 325 mg PO DAILY 03/23/18 [History] Furosemide [Lasix] 20 mg PO DAILY 03/23/18 [History] Montelukast [Singulair] 10 mg PO DAILY 03/23/18 [History] Omeprazole [PriLOSEC] 20 mg PO DAILY 03/23/18 [History] Amoxicillin/Clavulanate [Augmentin] 875 mg PO BIDWM 7 Days #14 tablet 07/08/18 [ Rx] Losartan [Cozaar] 50 mg PO DAILY #30 tablet 07/08/18 [Rx] Sulfamethoxazole/Trimeth DS [Bactrim DS] 1 each PO BID 7 Days #14 tablet [Rx] Warfarin [Coumadin] 5 mg PO 1800 #10 tablet 07/08/18 [Rx] metFORMIN [Glucophage] 500 mg PO 0800 #30 tablet 07/08/18 [Rx] Allergies/Adverse Reactions: 3 Allergy/AdvReac Type Severity Reaction Status Date / Time No Known Allergies Allergy Verified 09/30/15 22:29 Date of admission: 07/02/18 14:53 Primary care physician: Phuong Bearden MD Consults: 07/03/18 07:39 Consult to Infectious Diseases [CONS] Routine Consulting Provider: Infectious Disease [place] Reason for Consult: cellulitis of the lower extremity, had an OP appointment made by PCP Call Completed: No 07/04/18 14:36 Consult to Podiatry [CONS] Routine Consulting Provider: [facility] Reason for Consult: - spoke to Dr. skip Joe Call Completed: Yes - Constitutional Vitals: Temp Pulse Resp BP Pulse Ox 98.7 F 87 14 165/81 92 07/08/18 10:17 07/08/18 10:17 07/08/18 10:17 07/08/18 10:17 07/08/18 10:17 General appearance: Present: cooperative, pleasant Exam: General: Patient is alert, oriented, no acute distress, morbidly obese Head: atraumatic, normocephalic, Eye: normal appearance, PERRL, no scleral icterus, no conjunctival injection ENT: mucous membranes moist, normal external ear exam Neck: normal inspection, trachea midline, full ROM, no carotid bruits Chest: normal inspection, symmetric chest rise Respiratory: decreased breath sounds secondary to body habitus Good respiratory effort. Bilateral breath sounds are clear without wheezing, crackles, or rhonchi. Cardiovascular: decreased heart sounds secondary to body habitus, Regular rate and rhythm. s1 and s2 No clicks, rubs, gallops, or murmors. Abdomen: Bowel sounds present normoactive x-4 quadrants. Abdomen is soft, nondistended. no Epigastric tenderness. No guarding or rebound. No organomegaly noted, obese musculoskeletal: Spontaneously moving all extremities. 3 edema of the lower extremities below the knee R>L. bilateral lower extremity wrapped with PARVIN bandage Skin: warm, dry, intact. Neuro: Alert and oriented x4. Sensation light touch intact. Cranial nerves 2- 12 is intact. Not aphasic, rapid hand movements intact, [id number] intact, Psych: Patient's affect is normal - Patient Status Disposition: Home, Self-Care Condition: Fair Overall status at discharge: patient is progressing back to baseline - Discharge Instructions Follow Up With: Merna Villa CNP [Advanced Practice Nurse] - 07/09/18 9:30 am (Will need to get the INR lab first thing in the morning before the appt. Thank you) Additional Instructions: For possible discharge on 07/08 Will follow ID recommendations for oral antibiotics along with duration To follow-up with wound care To follow-up with podiatry To follow his INR for right leg DVT Wound care referral - Diet and Activity Activity: increase activity as tolerated Diet: diabetic diet - VTE Reasons for not Prescribing Prophylaxis: Treatment not Indicated - Low risk for VTE Documentation of Mechanical Device: Graduated compression elastic hosiery
[2018-07-08 16:09] VITALS: BP 126/52
--- NOTE | 2018-07-08 17:44 | Infectious Disease Progress No ---
Date of Encounter: 07/08/18 Time of Encounter: 10:50 - Assessment and Plan (1) Cellulitis of both lower extremities Current Visit: Yes Status: Acute Location: RLE. LLE does appear to have some skin changes, but I think these are more consistent with venous stasis dermatitis. Etiology likely multifactorial: venous stasis ulcer + venous insufficiency Causative organism: Unclear. Clinically improved. Podiatry consulted. Appreciate recommendations. Continue Zosyn 3.375 grams IV Q8H. (day 7) Continue Vancomycin IV. Pharmacy to dose. Goal trough ~15. (day 7) Duration of treatment depends on the clinical picture, but likely a total of 14 days. Can likely transition to PO antibiotics when ready for discharge. Recommend Bactrim DS 1 tab PO BID and Augmentin 875mg PO BID to complete the course of treatment. Treat through 07/15/18. Monitor renal function and for drug toxicity and dose-adjust antibiotics. (2) Ulcer of right leg Current Visit: Yes Status: Acute Location: Medial aspect of the RLE. Likely venous stasis ulcer. Podiatry consulted. Appreciate recommendations. Improved per patient's report. Recommend aggressive wound care and compression dressings. Recommend dermatology to evaluate as an outpatient for possible biopsy. Continue antibiotics as above. Qualifiers: Non-pressure ulcer stage: limited to breakdown of skin Qualified Code(s): L97.911 - Non-pressure chronic ulcer of unspecified part of right lower leg limited to breakdown of skin (3) Hypertension Current Visit: No Status: Chronic Qualifiers: Hypertension type: essential hypertension Qualified Code(s): I10 - Essential (primary) hypertension (4) Morbid obesity Current Visit: No Status: Chronic (5) GERD (gastroesophageal reflux disease) Current Visit: No Status: Acute Qualifiers: Esophagitis presence: esophagitis presence not specified Qualified Code(s) : K21.9 - Gastro-esophageal reflux disease without esophagitis (6) Type 2 diabetes mellitus Current Visit: No Status: Acute Recommend aggressive glucose monitoring and control to promote wound healing and prevent re-infection. Management per the primary team. Qualifiers: Diabetes mellitus skilled nursing insulin use: without skilled nursing use Diabetes mellitus complication status: with skin complications Diabetes mellitus complication detail: with other skin complication Qualified Code(s): E11.628 - Type 2 diabetes mellitus with other skin complications (7) Lower extremity venous stasis Current Visit: No Status: Acute Venous stasis dermatitis noted to the BLE. Discussed the importance of lifestyle modification and the role that venous stasis plays in recurrent cellulitis. Recommend the patient lose weight, keep legs elevated, apply moisturizer lotion to intact skin daily, and wear compression stockings during daytime hours. (8) DVT of leg (deep venous thrombosis) Current Visit: Yes Status: Chronic Previous DVT to the RLE. Patient states he was on AC for two years, and recently stopped. Doppler of the RLE showed chronic thrombus to the right popliteal vein. AC per the primary team. Qualifiers: Affected thrombotic vein of extremity: popliteal Chronicity: chronic Laterality: right Qualified Code(s): I82.531 - Chronic embolism and thrombosis of right popliteal vein - Subjective Interval history: Patient seen and examined. No acute events noted overnight. Patient sitting up in the bedside chair. States overall he feels fine. Denies fevers, chills, or rigors. Denies chest pain, shortness of breath, or cough. Denies nausea, vomiting, or diarrhea. Denies abdominal pain, urinary complaints, or appetite changes. Denies pain in the back or extremities. Denies oral thrush or new skin lesions. Infect Dis PN-Objective Data - Labs CBC & Chem 7: 07/07/18 02:30 07/07/18 02:30 Labs: Laboratory Results - last 24 hr 07/06/18 07/06/18 07/06/18 07:53 11:46 16:17 PT INR POC Glucose 112 H 109 H 118 H 07/06/18 07/07/18 07/07/18 20:41 07:26 10:49 PT INR POC Glucose 115 H 94 119 H 07/08/18 06:34 PT 21.6 H INR 1.9 POC Glucose Cultures: Cultures 07/02/18 16:00 Blood Culture - Final Peripheral Venipuncture No growth. Final report. Serology 07/02/18 Range/Units 19:00 Urine Color Yellow (Yellow) Urine Clarity Cloudy A (Clear) Urine pH 6.0 (5.0-8.0) pH Units Ur Specific [place] 1.025 (1.010-1.025) Urine Protein Trace (Neg-Trace) mg/dL Urine Glucose (UA) Normal (Normal) mg/dL Urine Ketones Negative (Negative) mg/dL Urine Blood Negative (Negative) Urine Nitrite Negative (Negative) Urine Bilirubin Negative (Negative) Urine Urobilinogen Normal (Normal) mg/dL Ur Leukocyte Esterase Negative (Negative) Urine Microscopic RBC 0-3 (0-3) per hpf Urine Microscopic WBC 0-3 (0-3) per hpf Ur Squamous Epith Cells Many H (None-Few) per lpf Urine Bacteria Moderate H (None-Few) per hpf Ur Culture Indicated? NO (NO) Exam - Constitutional Vitals: Temp Pulse Resp BP Pulse Ox 99.3 F 80 16 126/52 99 07/08/18 16:08 07/08/18 16:08 07/08/18 16:08 07/08/18 16:08 07/08/18 16:08 General appearance: cooperative, morbidly obese, no acute distress - Head Head exam: Present: atraumatic, normal inspection, normocephalic - Eye Eye exam: Present: EOMI, normal appearance, PERRL Pupils: Present: normal accommodation - ENT ENT exam: Present: mucous membranes moist - Neck Neck exam: Present: normal inspection - Respiratory Respiratory exam: Present: CTAB. Absent: rales, respiratory distress, rhonchi, wheezes - Cardiovascular Cardiovascular exam: Present: RRR, +S1, +S2 - GI/Abdominal GI/Abdominal exam: Present: distended (obese), normal bowel sounds, soft. Absent: tenderness - Extremities Exam Extremities exam: Present: pedal edema (Trace BLE). Absent: joint swelling, normal inspection (Venous stasis dermatitis noted to the BLE), tenderness Additional comments: RLE Allevyn dressing C/D/I. Erythema, warmth, and tenderness of the RLE has resolved. - Neurological Exam Neurological exam: Present: alert, oriented X3, no focal deficits - Psychiatric Psychiatric exam: Present: normal affect, normal mood - Skin Skin exam: Present: dry, intact, normal color, warm - VTE Reasons for not Prescribing Prophylaxis: Treatment not Indicated - Low risk for VTE Documentation of Mechanical Device: Graduated compression elastic hosiery Consult Discharge Plan - Plan Instructions: Cellulitis (DC) Additional Instructions: For possible discharge on 07/08 Will follow ID recommendations for oral antibiotics along with duration To follow-up with wound care To follow-up with podiatry To follow his INR for right leg DVT Wound care referral Referrals: Merna Villa CNP [Advanced Practice Nurse] - 07/09/18 9:30 am (Will need to get the INR lab first thing in the morning before the appt. Thank you) Prescriptions: Amoxicillin/Clavulanate [Augmentin] 875 mg PO BIDWM 7 Days #14 tablet Losartan [Cozaar] 50 mg PO DAILY #30 tablet metFORMIN [Glucophage] 500 mg PO 0800 #30 tablet Sulfamethoxazole/Trimeth DS [Bactrim DS] 1 each PO BID 7 Days #14 tablet Warfarin [Coumadin] 5 mg PO 1800 #10 tablet - Attending Attestation I examined this patient and my medical decision-making was reviewed with the Resident Physician. I agree with the documented findings, disposition and treatment plan as described except to the extent set forth below.
[2018-07-08] MEDS ORDERED: *HR* Warfarin 5 MG TABLET PO ONE (18:00)
[2018-07-08] MEDS ORDERED: Aminoglycoside Consult 1 EACH MC ONE (19:18)
--- NOTE | 2018-07-08 21:34 | Electrocardiograph Report ---
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
== END 2018-07-08 19:19 | disposition home or self-care (01) ==
LOC: EMEROOARM 14:07 → 3ANU 14:07 → SUATTDRO 14:53 → 3ANU 14:55
PROVIDERS: ADMIT Student in an Organized Health Care Education/Training Program; ATTEND Internal Medicine

== ENCOUNTER 2018-08-28 23:43 | Observation (INO) ==
[2018-08-29] MEDS ORDERED: *HR* EPINEPHrine 1 MG/ML AMPUL IM ONE (00:05)
[2018-08-29] MEDS ORDERED: Famotidine 20 MG/2 ML VIAL IVP ONE (00:05)
--- NOTE | 2018-08-29 00:27 | Emergency Department Note ---
Disposition Clinical Impression: Angioedema Qualifiers: Encounter type: initial encounter Qualified Code(s): T78.3XXA - Angioneurotic edema, initial encounter Disposition: Admitted As Inpatient Condition: Fair Time of Disposition: 03:32 General Adult HPI - General Chief complaint: ED General Medical Stated complaint: Poss. Angioedema Time Seen by Provider: 08/29/18 00:00 Source: patient Limitations: no limitations Nursing Notes Reviewed: Yes Vital Signs Reviewed: Yes - History of Present Illness HPI Narrative: 58-year-old male presents from home for concerns of swelling in his face. Patient was previously on lisinopril. He had an PARVIN inhibitor cough and was changed to losartan which she has been on for the past several years. His insurance changed and there is a disruption in the refills of his losartan. She was concerned of his blood pressure and, 2 days ago, began taking the remainders of an old prescription of his lisinopril. He took 20 mg this morning and an additional 10 mg at 4 PM this evening. At 5:30 this evening, he noticed swellin g of his face. He tried weighted out however, it did not improve and became slightly worse. ROS: Positive: As above Negative: Fever, chills, nausea, vomiting, chest pains, palpitations Pain Scale: 0 - Related Data Home Medications Medication Instructions Recorded Confirmed Albuterol Sulfate [Proair Hfa] 2 puff IH Q4-6H PRN 03/23/18 07/23/18 Budesonide/Formoterol 160/4.5 2 puff IH BIDR 03/23/18 07/23/18 [Symbicort 160/4.5] Ferrous Sulfate [Iron] 325 mg PO DAILY 03/23/18 07/23/18 Furosemide [Lasix] 20 mg PO DAILY 03/23/18 07/23/18 Montelukast [Singulair] 10 mg PO DAILY 03/23/18 07/23/18 Omeprazole [PriLOSEC] 20 mg PO DAILY 03/23/18 07/23/18 Previous Rx's Medication Instructions Recorded Losartan [Cozaar] 50 mg PO DAILY #30 tablet 07/08/18 Warfarin [Coumadin] 5 mg PO 1800 #10 tablet 07/08/18 metFORMIN [Glucophage] 500 mg PO 0800 #30 tablet 07/08/18 Allergies Allergy/AdvReac Type Severity Reaction Status Date / Time No Known Allergies Allergy Verified 08/28/18 23:46 All systems ED: reviewed and negative except as stated. Review of Systems: As Per HPI Past Medical History - Past Medical History Medical history: Reports: asthma, COPD, DVT, hypertension, other Surgical history: Reports: other Psychiatric history: Reports: no psych history - Social History Smoking Status: Former smoker Smokeless Tobacco Status: No Alcohol use: Reports: none Drug use: Reports: none Physical Exam Vital Signs Reviewed General: Patient is alert, oriented, and in no acute distress. Head: atraumatic, normocephalic Eye: normal appearance, PERRL, EOMI, no scleral icterus, no conjunctival injection ENT: mucous membranes moist, normal external ear exam Neck: normal inspection, trachea midline, full ROM Chest: normal inspection, symmetric chest rise Respiratory: Good respiratory effort. Bilateral breath sounds are clear without wheezing, crackles, or rhonchi. No stridor. No respiratory distress. Patient is handling his secretions. Cardiovascular: Regular rate and rhythm. No clicks, rubs, gallops, or murmors. Normal heart sounds. Abdomen: Bowel sounds present normoactive x-4 quadrants. Abdomen is soft, nondistended, and nontender. No guarding or rebound. Musculoskeletal: Spontaneously moving all extremities. Skin: warm, dry, intact. Neuro: Alert and oriented x4. Sensation light touch intact. Psych: Patient's affect is appropriate for situation. - General Limitations: no limitations General appearance: alert Course Course Narrative: EKG dated 08/29/2018 at 00:40 interpreted as sinus rhythm with rate of 73. MT 134, QRS 112, QTC 424. Normal axis. Nonspecific ST-T changes. Compared to previous EKG dated 07/05/2018 showing no acute ischemic changes or comparison. Patient is protecting his airway. He does not feel that his tongue is swollen. He does feel a tingling sensation in the back of his throat. He was given Pepcid, Benadryl, steroids. He refused IM epinephrine. Though he is a large gentleman with a short neck, he does have swelling along the angle of his mandible and some swelling hypoglossal. Patient neither improved nor worsened in the 3 1/2 hours he was in the emergency department. Even so, concerned that he may decompensate should he be a home. Recommend overnight observation ensuring that he does not decompensate. Patient agrees. I discussed the patient with the admitting hospitalist, Dr. Wilson, who agrees to accept the patient for continued evaluation. Vital Signs Temperature 98.1 F 08/28/18 23:47 Pulse Rate 77 08/28/18 23:47 Respiratory Rate 20 08/28/18 23:47 Blood Pressure 196/96 08/28/18 23:47 O2 Sat by Pulse Oximetry 97 08/28/18 23:47 Temperature 97.8 F 08/29/18 05:31 Pulse Rate 65 08/29/18 05:31 Respiratory Rate 20 08/29/18 05:31 Blood Pressure 153/89 08/29/18 05:31 O2 Sat by Pulse Oximetry 96 08/29/18 05:31 Oxygen Delivery Oxygen Delivery Room Air Medical Decision Making - Lab Data Result diagrams: 08/29/18 01:10 08/29/18 01:10 Lab Results 08/29/18 08/29/18 Range/Units 01:10 01:10 WBC 8.6 (4.3-11.1) K/mcL RBC 4.72 (4.19-5.50) M/mcL Hgb 12.1 L (12.9-16.9) g/dL Hct 38.2 (37.5-50.1) % MCV 80.9 L (83.0-100.0) fL MCH 25.6 L (28.0-33.3) pg MCHC 31.7 (31.6-35.5) g/dL RDW 15.6 H (11.5-14.5) % Plt Count 245 (140-400) K/mcL MPV 10.0 (9.4-12.4) fL Immature Gran % 0.9 (0-4) % Seg Neutrophils % 54.9 % Lymphocytes % 27.4 % Monocytes % 8.9 % Eosinophils % 7.3 % Basophils % 0.6 % Neutrophils # 4.7 (1.6-8.9) K/mcL Lymphocytes # 2.3 (0.6-4.6) K/mcL Monocytes # 0.8 (0.0-1.3) K/mcL Eosinophils # 0.6 (0.0-0.6) K/mcL Basophils # 0.1 (0.0-0.2) K/mcL Sodium 139 (136-145) mEq/L Potassium 4.3 (3.5-5.1) mEq/L Chloride 107 (98-107) mEq/L Carbon Dioxide 26 (23-29) mEq/L BUN 11 (6-20) mg/dL Creatinine 0.79 (0.70-1.30) mg/dL Est GFR ( Amer) > 60 (> 60) Est GFR (Non-Af Amer) > 60 (> 60) BUN/Creatinine Ratio 14 (6-26) Glucose 132 H (70-105) mg/dL Calculated Osmolality 289 (280-300) Calcium 9.0 (8.6-10.3) mg/dL
[2018-08-29] MEDS: Hydrocortisone Sodium Succ 100 MG/2 ML VIAL IVP ONE (01:29)
[2018-08-29 01:35] LABS: Basophils # 0.1 K/mcL (0.0-0.2); Basophils % 0.6 %; Eosinophils # 0.6 K/mcL (0.0-0.6); Eosinophils % 7.3 %; Hematocrit 38.2 % (37.5-50.1); Hemoglobin 12.1 g/dL (12.9-16.9); Immature Granulocytes % 0.9 % (0-4); Lymphocytes # 2.3 K/mcL (0.6-4.6); Lymphocytes % 27.4 %; Mean Corpuscular HGB Conc 31.7 g/dL (31.6-35.5); Mean Corpuscular Hemoglobin 25.6 pg (28.0-33.3); Mean Corpuscular Volume 80.9 fL (83.0-100.0); Monocytes # 0.8 K/mcL (0.0-1.3); Monocytes % 8.9 %; Neutrophils # 4.7 K/mcL (1.6-8.9); Platelet Count 245 K/mcL (140-400); Red Blood Count 4.72 M/mcL (4.19-5.50); Red Cell Distribution Width 15.6 % (11.5-14.5); Segmented Neutrophils % 54.9 %
[2018-08-29 02:15] LABS: BUN/Creatinine Ratio 14 (6-26); Blood Urea Nitrogen 11 mg/dL (6-20); Carbon Dioxide 26 mEq/L (23-29); Chloride 107 mEq/L (98-107); Glucose 132 mg/dL (70-105); Osmolality,Calculated 289 (280-300); Potassium 4.3 mEq/L (3.5-5.1); Sodium 139 mEq/L (136-145); eGFR For Non-African Americans > 60 (> 60)
--- NOTE | 2018-08-29 04:10 | Emergency Department Note ---
Disposition Clinical Impression: Angioedema Qualifiers: Encounter type: initial encounter Qualified Code(s): T78.3XXA - Angioneurotic edema, initial encounter Disposition: Admitted As Inpatient Condition: Fair Referrals: Phuong Bearden MD [Primary Care Provider] - Forms: ED Satisfaction Letter, Work/School Release General Adult HPI - General Chief complaint: ED General Medical Stated complaint: Poss. Angioedema Time Seen by Provider: 08/29/18 00:00 Source: patient Limitations: no limitations Nursing Notes Reviewed: Yes Vital Signs Reviewed: Yes - History of Present Illness Pain Scale: 0 - Related Data Home Medications Medication Instructions Recorded Confirmed Albuterol Sulfate [Proair Hfa] 2 puff IH Q4-6H PRN 03/23/18 07/23/18 Budesonide/Formoterol 160/4.5 2 puff IH BIDR 03/23/18 07/23/18 [Symbicort 160/4.5] Ferrous Sulfate [Iron] 325 mg PO DAILY 03/23/18 07/23/18 Furosemide [Lasix] 20 mg PO DAILY 03/23/18 07/23/18 Montelukast [Singulair] 10 mg PO DAILY 03/23/18 07/23/18 Omeprazole [PriLOSEC] 20 mg PO DAILY 03/23/18 07/23/18 Previous Rx's Medication Instructions Recorded Losartan [Cozaar] 50 mg PO DAILY #30 tablet 07/08/18 Warfarin [Coumadin] 5 mg PO 1800 #10 tablet 07/08/18 metFORMIN [Glucophage] 500 mg PO 0800 #30 tablet 07/08/18 Allergies Allergy/AdvReac Type Severity Reaction Status Date / Time No Known Allergies Allergy Verified 08/28/18 23:46 Past Medical History - Past Medical History Medical history: Reports: asthma, COPD, DVT, hypertension, other Surgical history: Reports: other Psychiatric history: Reports: no psych history - Social History Smoking Status: Former smoker Smokeless Tobacco Status: No Alcohol use: Reports: none Drug use: Reports: none Physical Exam - General Limitations: no limitations General appearance: alert Course Vital Signs Temperature 98.1 F 08/28/18 23:47 Pulse Rate 77 08/28/18 23:47 Respiratory Rate 20 08/28/18 23:47 Blood Pressure 196/96 08/28/18 23:47 O2 Sat by Pulse Oximetry 97 08/28/18 23:47 Temperature 98.1 F 08/28/18 23:47 Pulse Rate 65 08/29/18 01:35 Respiratory Rate 16 08/29/18 01:35 Blood Pressure 158/94 08/29/18 01:35 O2 Sat by Pulse Oximetry 98 08/29/18 01:35 Oxygen Delivery Oxygen Delivery Room Air Medical Decision Making - Medical Records Medical records reviewed: Yes I reviewed the patient's medical records. - Lab Data Lab results reviewed: Yes I reviewed the patient's lab results. Result diagrams: 08/29/18 01:10 08/29/18 01:10 Lab Results 08/29/18 08/29/18 Range/Units 01:10 01:10 WBC 8.6 (4.3-11.1) K/mcL RBC 4.72 (4.19-5.50) M/mcL Hgb 12.1 L (12.9-16.9) g/dL Hct 38.2 (37.5-50.1) % MCV 80.9 L (83.0-100.0) fL MCH 25.6 L (28.0-33.3) pg MCHC 31.7 (31.6-35.5) g/dL RDW 15.6 H (11.5-14.5) % Plt Count 245 (140-400) K/mcL MPV 10.0 (9.4-12.4) fL Immature Gran % 0.9 (0-4) % Seg Neutrophils % 54.9 % Lymphocytes % 27.4 % Monocytes % 8.9 % Eosinophils % 7.3 % Basophils % 0.6 % Neutrophils # 4.7 (1.6-8.9) K/mcL Lymphocytes # 2.3 (0.6-4.6) K/mcL Monocytes # 0.8 (0.0-1.3) K/mcL Eosinophils # 0.6 (0.0-0.6) K/mcL Basophils # 0.1 (0.0-0.2) K/mcL Sodium 139 (136-145) mEq/L Potassium 4.3 (3.5-5.1) mEq/L Chloride 107 (98-107) mEq/L Carbon Dioxide 26 (23-29) mEq/L BUN 11 (6-20) mg/dL Creatinine 0.79 (0.70-1.30) mg/dL Est GFR ( Amer) > 60 (> 60) Est GFR (Non-Af Amer) > 60 (> 60) BUN/Creatinine Ratio 14 (6-26) Glucose 132 H (70-105) mg/dL Calculated Osmolality 289 (280-300) Calcium 9.0 (8.6-10.3) mg/dL - Radiology Data Radiology results reviewed: Yes I reviewed the patient's radiology results. Chest X-Ray 08/29/18 00:05 IMPRESSION: No acute process. D/ / Ricco Cortes MD / Ricco Cortes MD Interpreting Provider: Ricco Cortes MD - EKG Data EKG #1 EKG attestation: Yes I reviewed and interpreted this EKG. EKG results narrative: EKG shows a normal sinus rhythm with ventricular rate is 72. No acute ST segment elevation or depression. No arrhythmia or ectopy. Attestation Statement - Attestation Attestation: I, Lavon Vann MD, personally evaluated this patient and discussed their management with the resident physician. I reviewed the resident's note and agree with the documented findings, medical decision making, and plan of care. 58-year-old male presents to the emergency department with a complaint of swelling of his lower lip which started about 5:30 this evening. Patient just recently started taking some old lisinopril that he had left over from a previous prescription. He states he was taken off the lisinopril because it was causing her cough and was placed on a different medication however he recently ran out of the new medication so he started back taking the lisinopril 2 days ago and this evening started having swelling of the lower lip. He denies any swelling of the tongue. No difficulty breathing or swallowing. No rash or itching. On examination patient is a well-developed obese male in no acute distress. He is alert and oriented 3. There is no cyanosis or diaphoresis. Patient does have angioedema of the lower lip. No obvious edema of the tongue or uvula or soft palate. Airway is patent. Mucous membranes are moist. Breath sounds are clear and equal bilaterally. Heart regular rate and rhythm. Labs reviewed. No acute changes on EKG. Chest x-ray negative. Patient received Benadryl, Pepcid, and steroids. He refused epinephrine. After observation patient had no worsening of his condition. He states that it felt like the swelling was less tight than it was previously however clinically I cannot really appreciate any significant improvement but I definitely do not feel it is worse. Patient will be admitted for observation. The hospitalist, Dr. Wilson, was consulted and accepted admission of the patient.
--- NOTE | 2018-08-29 08:54 | Internal Med History&Physical ---
Date of Encounter: 08/29/18 Time of Encounter: 08:00 Internal Medicine - H&P: HPI Chief complaint: swelling of face Admitted From: Home History of present illness: 58-year-old male presents from home for concerns of swelling in his face. Patient was previously on lisinopril that was switched to losartan due to cough. He ran out of losartan so he began taking the remainders of an old prescription of his lisinopril. He noticed swelling of his face that was progressively worsening and he decided to seek medical attention. Past Med Surg Social Fam HX - Past Medical History Medical history: asthma, COPD, DVT, hypertension, other Additional medical history: cellulitis, DVT to right knee. Psychiatric history: no psych history - Past Surgical History Surgical History: other Additional surgical history: Back surgery 3yrs ago - Social History Smoking Status: Former smoker Smokeless Tobacco Status: No Alcohol use: none Drug use: none - Family History Father Adopted: No Living Status: Still Living Hx Family Cardiac Disorders: Yes Hx Family Respiratory Disorders: Yes Hx Family Cancer: Yes (Colon) Hx Family GI Disorders: No Hx Family Endocrine Disorder: No Hx Family Neuromuscular Disorders: No Hx Family Neurologic Disorders: No Hx Family HEENT Disorders: No Hx Family Autoimmune Disorders: No Mother Adopted: No Living Status: Hx Family Cardiac Disorders: Yes Hx Family Respiratory Disorders: No Hx Family Cancer: Yes (Chest) Hx Family GI Disorders: No Hx Family Endocrine Disorder: No Hx Family Neuromuscular Disorders: No Hx Family Neurologic Disorders: No Hx Family HEENT Disorders: No Hx Family Autoimmune Disorders: No Internal Medicine - H&P: Meds RX: Budesonide/Formoterol 160/4.5 [Symbicort 160/4.5] 2 puff IH BIDR 03/23/18 [History] RX: Acetaminophen [Tylenol] 650 mg PO Q6HR PRN tablet 08/30/18 [Rx] RX: Albuterol Sulfate [Proair Hfa] 2 puff IH Q4-6H PRN 30 Days hfa.[email or web address] 08/30/18 [Rx] RX: Ferrous Sulfate [Iron] 325 mg PO DAILY #30 tablet 08/30/18 [Rx] RX: Furosemide [Lasix] 20 mg PO DAILY #30 tablet 08/30/18 [Rx] RX: Montelukast [Singulair] 10 mg PO DAILY #30 tablet 08/30/18 [Rx] RX: Omeprazole [PriLOSEC] 20 mg PO DAILY #30 capsule. 08/30/18 [Rx] RX: amLODIPine [Norvasc] 5 mg PO DAILY 30 Days tablet 08/30/18 [Rx] RX: metFORMIN [Glucophage] 500 mg PO 0800 #30 tablet 08/30/18 [Rx] Allergy/AdvReac Type Severity Reaction Status Date / Time No Known Allergies Allergy Verified 08/28/18 23:46 All Systems PM: A 10-system review of systems was performed and is negative for pertinent findings except as documented above in the HPI. - Constitutional Constitutional: no chills, no fever(s), no night sweats - EENT Nose, mouth and throat: as per HPI - Cardiovascular Cardiovascular ROS IM: no chest pain, no diaphoresis, no dyspnea, no lightheadedness, no palpitations, no syncope - Respiratory Respiratory: no cough, no dyspnea, no wheezing, no excessive phlegm production - Neurological Neurological ROS: no confusion, no convulsions, no focal weakness, no numbness, no tingling, no tremor(s) - Constitutional Vitals: Temp Pulse Resp BP Pulse Ox 97.5 F L 92 21 150/99 96 08/29/18 07:17 08/29/18 07:17 08/29/18 07:17 08/29/18 07:17 08/29/18 06:24 General appearance: Present: A&O X 3 Exam: as below - Head Head exam: Present: atraumatic, normocephalic - Neck Neck exam general surgery: Present: supple, trachea midline. Absent: lymphadenopathy - Respiratory Respiratory exam: Present: CTAB. Absent: accessory muscle use, rales, rhonchi, wheezes - Cardiovascular Cardiovascular exam: Present: RRR, +S1, +S2. Absent: diastolic murmur, gallop, rubs, systolic murmur - GI/Abdominal GI/Abdominal exam: Present: normal bowel sounds, soft, no peritoneal signs. Absent: distended, tenderness - Extremities Exam Extremities exam: Present: warm, radial pulses palpable and symmetrical. Absent: calf tenderness, cyanotic, pedal edema Internal Med - H&P Results - Labs CBC & Chem 7: 08/30/18 03:53 08/30/18 03:53 Labs: Short CBC 08/29/18 Range/Units 01:10 WBC 8.6 (4.3-11.1) K/mcL Hgb 12.1 L (12.9-16.9) g/dL Hct 38.2 (37.5-50.1) % Plt Count 245 (140-400) K/mcL Neutrophils # 4.7 (1.6-8.9) K/mcL BMP 08/29/18 01:10 Sodium 139 Potassium 4.3 Chloride 107 Carbon Dioxide 26 BUN 11 Creatinine 0.79 Glucose 132 H Calcium 9.0 - Impressions ITS Impressions Chest X-Ray 08/29/18 00:05 IMPRESSION: No acute process. D/ / Ricco Cortes MD / Ricco Cortes MD Interpreting Provider: Ricco Cortes MD - Assessment and plan (1) Angioedema Status: Acute Assessment and plan: Most likely secondary to losartan, we will hold, but start the patient on calcium channel marty for blood pressure control, At bedside the patient appeared to be hemodynamically stable, and lip swelling was completely resolved Qualifiers: Encounter type: subsequent encounter Qualified Code(s): T78.3XXD - Angioneurotic edema, subsequent encounter (2) Morbid obesity Status: Chronic (3) GERD (gastroesophageal reflux disease) Status: Chronic Qualifiers: Esophagitis presence: esophagitis presence not specified Qualified Code(s): K21.9 - Gastro-esophageal reflux disease without esophagitis (4) Hypertension Status: Chronic Assessment and plan: We will discontinue losartan and start patient consent liquid for blood pressure control, continue to monitor his blood blood pressure and adjust the regimen further as indicated Qualifiers: Hypertension type: essential hypertension Qualified Code(s): I10 - Essential (primary) hypertension (5) Type 2 diabetes mellitus Status: Chronic Assessment and plan: We will start the patient and insulin sliding scale with moderate coverage, Qualifiers: Diabetes mellitus extermination inspector insulin use: without extermination inspector use Diabetes mellitus complication status: with skin complications Diabetes mellitus complication detail: with other skin complication Qualified Code(s): E11.628 - Type 2 diabetes mellitus with other skin complications (6) DVT prophylaxis Status: Acute Assessment and plan: We will place SCDs. - Time Spent With Patient Total time spent is greater than 50% in coordination of care (as documented) at patient's floor/unit and/or counseling patient:
[2018-08-29] MEDS ORDERED: Naloxone 0.4 MG/ML INJ IVP PRN (12:04)
[2018-08-29] MEDS ORDERED: Acetaminophen 325 MG TABLET PO PRN (12:04)
[2018-08-29] MEDS ORDERED: *HR* HYDROcodone/Acet 5/325 mg TABLET PO PRN (12:04)
[2018-08-29 12:58] LABS: INR 3.1; Prothrombin Time 34.6 Seconds (9.4-12.1)
[2018-08-29 13:00] LABS: Activated Partial Thrombo Time 48.5 Seconds (26.0-36.0)
[2018-08-29 13:03] LABS: Chol/HDL Ratio 4.8 (0-4.9)
[2018-08-29] MEDS ORDERED: Dextrose Gel 15 GM/37.5 ML TUBE PO PRN ×2 (20:01)
[2018-08-29] MEDS ORDERED: D5% in Water 1,000 ML IVC PRN (20:01)
[2018-08-29] MEDS ORDERED: *HR* Dextrose 50 % in Water (Syg) 50 ML SYRINGE IVP PRN (20:01)
[2018-08-29] MEDS: Budesonide/Formoterol 160/4.5 1 PUFF INH IH SCH (20:40)
[2018-08-29] MEDS ORDERED: Insulin LISPRO 300 UNITS/3 ML VIAL SQ SCH (21:00)
[2018-08-30 04:45] LABS: Hemoglobin 11.9 g/dL (12.9-16.9); Mean Corpuscular HGB Conc 32.2 g/dL (31.6-35.5); Mean Corpuscular Hemoglobin 25.8 pg (28.0-33.3); Mean Corpuscular Volume 80.3 fL (83.0-100.0); Mean Platelet Volume 10.3 fL (9.4-12.4); Platelet Count 237 K/mcL (140-400); Red Blood Count 4.61 M/mcL (4.19-5.50); Red Cell Distribution Width 15.9 % (11.5-14.5)
[2018-08-30 05:03] LABS: Alanine Aminotransferase 31 Units/L (7-52); Albumin 3.9 g/dL (3.5-5.7); Albumin/Globulin Ratio 1.4 (1.1-2.2); Alkaline Phosphatase 67 Units/L (34-104); Aspartate Amino Transferase 28 Units/L (13-39); BUN/Creatinine Ratio 16 (6-26); Bilirubin,Total 0.5 mg/dL (0.3-1.0); Blood Urea Nitrogen 13 mg/dL (6-20); Calcium 9.1 mg/dL (8.6-10.3); Carbon Dioxide 26 mEq/L (23-29); Chloride 106 mEq/L (98-107); Globulin 2.8 g/dL (2.4-3.5); Glucose 127 mg/dL (70-105); Magnesium 1.8 mg/dL (1.6-2.6); Osmolality,Calculated 296 (280-300); Phosphorous 3.8 mg/dL (2.7-4.5); Potassium 3.9 mEq/L (3.5-5.1); Sodium 142 mEq/L (136-145); Total Protein 6.7 g/dL (6.4-8.9); eGFR For Non-African Americans > 60 (> 60)
[2018-08-30] MEDS ORDERED: Insulin LISPRO 300 UNITS/3 ML VIAL SQ SCH (07:30)
--- NOTE | 2018-08-30 07:38 | Internal Med Progress Note ---
Hospitalist Progress Note - Encounter Date of Encounter: 08/30/18 Time of Encounter: 07:38 - Subjective Interval History: Patient seen and examined resting comfortably in bed. Patient denies worsening lip swelling today or shortness of breath. - Exam Vitals: Temp Pulse Resp BP Pulse Ox 97.7 F 71 16 157/99 95 08/30/18 03:46 08/30/18 03:46 08/30/18 03:46 08/30/18 03:46 08/30/18 03:46 Exam: General appearance: Present: cooperative, A&O X 3, no acute distress, awake, pleasant, morbidly obese Head exam: Present: atraumatic, normocephalic Eye exam: Present: pupil dilated, EOMI, conjuntiva pink, sclera anicteric ENT exam: Present: mucous membranes moist, oropharynx clear, no airway obstruction Neck exam: Present: supple, trachea midline. Absent: lymphadenopathy Respiratory exam: Present: CTAB. Absent: accessory muscle use, rales, rhonchi, wheezes Cardiovascular exam: Present: RRR, +S1, +S2. Absent: diastolic murmur, gallop, rubs, systolic murmur GI/Abdominal exam: Present: normal bowel sounds, soft, no peritoneal signs. Absent: distended, tenderness Extremities exam: Present: warm, radial pulses palpable and symmetrical. Absent: calf tenderness, cyanotic, pedal edema Neurological exam: Present: CN II-XII intact, oriented X3, no focal deficits. Absent: pronater drift, facial droop, speech deficit Psychiatric exam: Present: normal affect, normal mood Skin exam: Present: dry, warm, no rash - Assessment and Plan (1) Angioedema Current Visit: Yes Status: Acute Assessment and Plan: Most likely secondary to losartan, we will hold, but start the patient on calcium channel marty for blood pressure control, At bedside the patient appeared to be hemodynamically stable, and lip swelling was completely resolved (2) Hypertension Current Visit: No Status: Chronic Assessment and Plan: Discontinue losartan and start amlodipine for blood pressure control, continue to monitor his blood blood pressure and adjust the regimen further as indicated (3) Type 2 diabetes mellitus Current Visit: No Status: Acute Assessment and Plan: A1c 6.5 on 07/04/18 Continue insulin sliding scale with moderate coverage, (4) GERD (gastroesophageal reflux disease) Current Visit: No Status: Acute Assessment and Plan: Continue PPI (5) Morbid obesity Current Visit: No Status: Chronic Assessment and Plan: BMI 48.9. Diet and exercise - Time Spent with Patient Total time spent is greater than 50% in coordination of care (as documented) at patient's floor/unit and/or counseling patient: Internal Medicine: Result - Labs CBC & Chem 7: 08/30/18 03:53 08/30/18 03:53 Labs: Short CBC 08/30/18 Range/Units 03:53 WBC 7.2 (4.3-11.1) K/mcL Hgb 11.9 L (12.9-16.9) g/dL Hct 37.0 L (37.5-50.1) % Plt Count 237 (140-400) K/mcL BMP 08/30/18 03:53 Sodium 142 Potassium 3.9 Chloride 106 Carbon Dioxide 26 BUN 13 Creatinine 0.83 Glucose 127 H Calcium 9.1 Liver Function 08/30/18 Range/Units 03:53 Total Bilirubin 0.5 (0.3-1.0) mg/dL AST 28 (13-39) Units/L ALT 31 (7-52) Units/L Alkaline Phosphatase 67 (34-104) Units/L Albumin 3.9 (3.5-5.7) g/dL - ABG Interpretation ABG results: PT/INR, D-dimer PT 34.6 Seconds (9.4-12.1) H 08/29/18 12:32 Consult Discharge Plan - Plan Referrals: Phuong Bearden MD [Primary Care Provider] - (1) Angioedema Qualifiers: Encounter type: initial encounter Qualified Code(s): T78.3XXA - Angioneurotic edema, initial encounter (2) Hypertension Qualifiers: Hypertension type: essential hypertension Qualified Code(s): I10 - Essential (primary) hypertension (3) Type 2 diabetes mellitus Qualifiers: Diabetes mellitus chcf insulin use: without chcf use Diabetes mellitus complication status: with skin complications Diabetes mellitus complication detail: with other skin complication Qualified Code(s): E11.628 - Type 2 diabetes mellitus with other skin complications (4) GERD (gastroesophageal reflux disease) Qualifiers: Esophagitis presence: esophagitis presence not specified Qualified Code(s): K21.9 - Gastro-esophageal reflux disease without esophagitis
[2018-08-30 07:43] VITALS: BP 159/96
[2018-08-30] MEDS: Budesonide/Formoterol 160/4.5 1 PUFF INH IH SCH (07:45)
[2018-08-30] MEDS ORDERED: *HR* Metformin 500 MG TABLET PO SCH (08:00)
[2018-08-30] MEDS ORDERED: amLODIPine 5 MG TABLET PO SCH (09:00)
[2018-08-30] MEDS ORDERED: Furosemide 20 MG TABLET PO SCH (09:00)
--- NOTE | 2018-08-30 12:20 | Discharge Summary ---
<Cam Moreau - Last Filed: 08/30/18 14:39> - NOTES TO OUTPATIENT PROVIDER Notes to Outpatient Provider: Adjust antihypertensive regimen. Patient had angioedema from Lisinopril/ Losartan. Started on Amlodipine. Follow up with PCP on 09/01/31 for blood pressure recheck. Date of Encounter: 08/30/18 Time of Encounter: 12:18 - Discharge Diagnosis (1) Hypertension Priority: Secondary Status: Chronic Assessment and Plan: Discontinue losartan and start amlodipine for blood pressure control, continue to monitor his blood blood pressure and adjust the regimen further as indicated Qualifiers: Hypertension type: essential hypertension Qualified Code(s): I10 - Essential (primary) hypertension (2) Type 2 diabetes mellitus Priority: Secondary Status: Chronic Assessment and Plan: A1c 6.5 on 07/04/18 Continue insulin sliding scale with moderate coverage, Qualifiers: Diabetes mellitus half-way insulin use: without oil heaterman use Diabetes mellitus complication status: with skin complications Diabetes mellitus complication detail: with other skin complication Qualified Code(s): E11.628 - Type 2 diabetes mellitus with other skin complications (3) GERD (gastroesophageal reflux disease) Priority: Secondary Status: Chronic Assessment and Plan: Continue PPI Qualifiers: Esophagitis presence: esophagitis presence not specified Qualified Code(s): K21.9 - Gastro-esophageal reflux disease without esophagitis (4) Morbid obesity Priority: Secondary Status: Chronic Assessment and Plan: BMI 48.9. Diet and exercise (5) Angioedema Priority: Primary Status: Acute Assessment and Plan: Most likely secondary to losartan, we will hold, but start the patient on calcium channel marty for blood pressure control, At bedside the patient appeared to be hemodynamically stable, and lip swelling was completely resolved Qualifiers: Encounter type: initial encounter Qualified Code(s): T78.3XXA - Angioneurotic edema, initial encounter Hospital course: Mr. Baca is a 58 year old male with a past medical history of hypertension, diabetes, and morbid obesity who presented from home due to swelling in his face. Patient was previously on lisinopril in the past but had an PARVIN inhibitor cough and was changed to losartan which he has been on for the past several years. His insurance changed and there was a disruption in the refills of his losartan. He was concerned of his blood pressure and, 2 days ago, began taking the remainders of an old prescription of his lisinopril. He took 20 mg in morning and an additional 10 mg at 4 PM the evening prior to arrival. At 5:30 symptoms did not improving he was evaluated in the ED in the evening, he noticed swelling of his face. He tried weighted out however, it did not improve and became slightly worse. Patient was treated with Benadryl epinephrine and famotidine. Patient was hemodynamically stable, and lip swelling completely resolved during short hospital stay. Patient was started on amlodipine and instructed to follow up with PCP in 2 days for blood pressure recheck. Patient instructed to avoid further PARVIN inhibitor use. Discharge discussed with: patient, nurse - Time Spent with Patient Total time spent providing and/or coordinating discharge services: - Discharge Medications Prescriptions: Albuterol Sulfate [Proair Hfa] 2 puff IH Q4-6H PRN 30 Days hfa.aer.ad PRN Reason: Dyspnea amLODIPine [Norvasc] 5 mg PO DAILY 30 Days tablet Ferrous Sulfate [Iron] 325 mg PO DAILY #30 tablet Furosemide [Lasix] 20 mg PO DAILY #30 tablet metFORMIN [Glucophage] 500 mg PO 0800 #30 tablet Montelukast [Singulair] 10 mg PO DAILY #30 tablet Omeprazole [PriLOSEC] 20 mg PO DAILY #30 capsule. Home Medications: Budesonide/Formoterol 160/4.5 [Symbicort 160/4.5] 2 puff IH BIDR 03/23/18 [Hi story] Acetaminophen [Tylenol] 650 mg PO Q6HR PRN tablet 08/30/18 [Rx] Albuterol Sulfate [Proair Hfa] 2 puff IH Q4-6H PRN 30 Days hfa.aer.ad 08/30/18 [Rx] Ferrous Sulfate [Iron] 325 mg PO DAILY #30 tablet 08/30/18 [Rx] Furosemide [Lasix] 20 mg PO DAILY #30 tablet 08/30/18 [Rx] Montelukast [Singulair] 10 mg PO DAILY #30 tablet 08/30/18 [Rx] Omeprazole [PriLOSEC] 20 mg PO DAILY #30 capsule. 08/30/18 [Rx] amLODIPine [Norvasc] 5 mg PO DAILY 30 Days tablet 08/30/18 [Rx] metFORMIN [Glucophage] 500 mg PO 0800 #30 tablet 08/30/18 [Rx] Allergies/Adverse Reactions: Allergy/AdvReac Type Severity Reaction Status Date / Time No Known Allergies Allergy Verified 08/28/18 23:46 Date of admission: 08/29/18 04:09 Primary care physician: Phuong Bearden MD Discharging clinician: Terry Hartman Anticipated date of discharge: 08/30/18 - Constitutional Vitals: Temp Pulse Resp BP Pulse Ox 97.6 F 57 18 159/96 94 08/30/18 07:36 08/30/18 07:36 08/30/18 07:36 08/30/18 07:36 08/30/18 07:36 Exam: General appearance: Present: cooperative, A&O X 3, no acute distress, awake, pleasant, morbidly obese Head exam: Present: atraumatic, normocephalic Eye exam: Present: pupil dilated, EOMI, conjuntiva pink, sclera anicteric ENT exam: Present: mucous membranes moist, oropharynx clear, no airway obstruction Neck exam: Present: supple, trachea midline. Absent: lymphadenopathy Respiratory exam: Present: CTAB. Absent: accessory muscle use, rales, rhonchi, wheezes Cardiovascular exam: Present: RRR, +S1, +S2. Absent: diastolic murmur, gallop, rubs, systolic murmur GI/Abdominal exam: Present: normal bowel sounds, soft, no peritoneal signs. Absent: distended, tenderness Extremities exam: Present: warm, radial pulses palpable and symmetrical. Absent: calf tenderness, cyanotic, pedal edema Neurological exam: Present: CN II-XII intact, oriented X3, no focal deficits. Absent: pronater drift, facial droop, speech deficit Psychiatric exam: Present: normal affect, normal mood Skin exam: Present: dry, warm, no rash - Patient Status Disposition: Home, Self-Care Condition: Fair Functional capacity at discharge: independent ambulation Overall status at discharge: patient is back to baseline - Discharge Instructions Instructions: Iron Supplements (By mouth), Furosemide (By mouth), Omeprazole (By mouth), Amlodipine (By mouth), Metformin (By mouth), Montelukast (By mouth), Asthma (DC), Cellulitis (DC), Diabetes Mellitus Type 2 in Adults (DC), Peripheral Vascular Disorders (DC), Chronic Hypertension (DC), Angioedema (GEN) Follow Up With: Phuong Bearden MD [Primary Care Provider] - 09/01/18 9:00 am (YOU ALREADY HAD AN APPOINTMENT SET UP FOR SaturdayAug AT 9AM.) - Diet and Activity Activity: increase activity as tolerated Diet: advance to your usual diet <Terry Hartman - Last Filed: 08/30/18 19:52> - Discharge Diagnosis (1) Hypertension Status: Chronic Qualifiers: Hypertension type: essential hypertension Qualified Code(s): I10 - Essential (primary) hypertension (2) Morbid obesity Status: Chronic (3) GERD (gastroesophageal reflux disease) Status: Chronic Qualifiers: Esophagitis presence: esophagitis presence not specified Qualified Code(s): K21.9 - Gastro-esophageal reflux disease without esophagitis (4) Type 2 diabetes mellitus Status: Chronic Qualifiers: Diabetes mellitus oil heaterman insulin use: without oil heaterman use Diabetes mellitus complication status: with skin complications Diabetes mellitus complication detail: with other skin complication Qualified Code(s): E11.628 - Type 2 diabetes mellitus with other skin complications (5) Angioedema Status: Acute Qualifiers: Encounter type: subsequent encounter Qualified Code(s): T78.3XXD - Angioneurotic edema, subsequent encounter Hospital course: Mr. Baca is a 58 year old male - Time Spent with Patient Total time spent providing and/or coordinating discharge services: Date of admission: 08/29/18 04:09 Primary care physician: Phuong Bearden MD - Constitutional Vitals: Temp Pulse Resp BP Pulse Ox 97.6 F 57 18 159/96 98 08/30/18 07:36 08/30/18 07:36 08/30/18 07:45 08/30/18 07:36 08/30/18 07:45 - Attending Attestation I examined this patient and my medical decision-making was reviewed with the Resident Physician on 08/30/18. I agree with the documented findings, disposition and treatment plan as described except to the extent set forth below. Mr Baca has been in observation for angioedema related to PARVIN. His BP is now controlled on Norvasc and his symptoms have resolved. He is now afebrile and ready for discharge home. Exam alert Comfortable Mucus membranes dry Heart reg No wheeze abd soft Chronic edema noted Plan D/C home today.
--- NOTE | 2018-09-02 13:49 | Electrocardiograph Report ---
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
== END 2018-08-30 14:41 | disposition home or self-care (01) ==
LOC: 2NENU 23:43 → EMEROOARM 23:43 → SUATTDRO 08-29 04:09 → 2NENU 08-29 05:25
PROVIDERS: ADMIT Internal Medicine; ATTEND Internal Medicine

== ENCOUNTER 2021-11-29 04:40 | Inpatient (IN) ==
[2021-11-29] MEDS ORDERED: Ipratropium/Albuterol Neb 3 ML ONE (04:45)
[2021-11-29] MEDS ORDERED: methylPREDNISolone 125 MG/2 ML VIAL IVP ONE (04:48)
[2021-11-29] MEDS ORDERED: Ipratropium/Albuterol Neb 3 ML IH ONE (04:48)
[2021-11-29] MEDS ORDERED: 0.9 % Sodium Chloride 1,000 ML IVC ONE (04:52)
[2021-11-29 05:11] LABS: Basophils % 0.2 %; Hematocrit 42.5 % (37.5-50.1); Hemoglobin 13.2 g/dL (12.9-16.9); Lymphocytes # 1.2 K/mcL (0.6-4.6); Lymphocytes % 7.3 %; Mean Corpuscular HGB Conc 31.1 g/dL (31.6-35.5); Mean Corpuscular Hemoglobin 26.1 pg (28.0-33.3); Monocytes # 0.9 K/mcL (0.0-1.3); Monocytes % 5.9 %; Neutrophils # 13.7 K/mcL (1.6-8.9); Nucleated Red Blood Cells 0.1 /100 WBC (0); Platelet Count 243 K/mcL (140-400); Red Blood Count 5.06 M/mcL (4.19-5.50); Red Cell Distribution Width 16.3 % (11.5-14.5); Segmented Neutrophils % 85.6 %
[2021-11-29 05:15] LABS: ABG Base Excess -2 mEq/L (-2 to 3); ABG HCO3 24 mEq/L (21-27); ABG Oxygen Saturation 42 % (95-98); ABG PCO2 44 mmHg (35-45); ABG PH 7.34 pH Units (7.32-7.45); ABG PO2 25 mmHg (85-104); ABG TCO2 25 mEq/L (20-26)
[2021-11-29 05:43] LABS: Bacteria,Urine Few per hpf (None-Few); Bilirubin,Urine Negative (Negative); Blood,Urine Small (Negative); Clarity,Urine Clear (Clear); Color,Urine Yellow (Yellow); Glucose,Urine (UA) 30 mg/dL (Normal); Hyaline Casts,Urine Few per lpf (None Seen); Ketones,Urine Negative (Negative); Leukocyte Esterase,Urine Trace (Negative); Mucus,Urine Moderate per lpf (None-Few); Nitrite,Urine Negative (Negative); PH,Urine 5.5 pH Units (5.0-8.0); Protein,Urine 70 mg/dL (Neg-Trace); RBC,Urine 0-3 per hpf (0-3); Specific Gravity,Urine 1.028 (1.010-1.025); Squamous Epithelial Cell,Urine Few per hpf (None-Few); Urobilinogen,Urine Normal (Normal)
[2021-11-29] MEDS ORDERED: Azithromycin 500 MG in 0.9 % Sodium Chloride 250 ML IVPB ONE (05:56)
[2021-11-29] MEDS ORDERED: cefTRIAXone 1,000 MG in Water for inj. (sterile) 10 ML IVP ONE (05:56)
[2021-11-29 06:14] LABS: ABG Base Excess -1 mEq/L (-2 to 3); ABG HCO3 26 mEq/L (21-27); ABG Oxygen Saturation 57 % (95-98); ABG PCO2 50 mmHg (35-45); ABG PH 7.33 pH Units (7.32-7.45); ABG PO2 33 mmHg (85-104); ABG TCO2 28 mEq/L (20-26)
[2021-11-29 06:16] LABS: Influenza A PCR Negative (Negative); Influenza B PCR Negative (Negative); Resp. Syncytial Virus PCR Negative (Negative)
[2021-11-29 06:22] LABS: SARS-CoV-2 by PCR (In House) Positive (Negative)
[2021-11-29] MEDS ORDERED: *HR* LORazepam 2 MG/ML VIAL IVP ONE (06:26)
[2021-11-29] MEDS ORDERED: Aspirin 325 MG TABLET PO ONE (06:51)
[2021-11-29] MEDS ORDERED: cefTRIAXone 1,000 MG in 0.9 % Sodium Chloride Mini Bag 100 ML IVPB ONE (07:00)
[2021-11-29] MEDS ORDERED: Naloxone 0.4 MG/ML INJ IVP PRN (07:29)
[2021-11-29] MEDS ORDERED: Isovue-370 500 ML BOTTLE IVP ONE (07:32)
[2021-11-29] MEDS ORDERED: D5% in Water 1,000 ML IVC PRN (07:34)
[2021-11-29] MEDS ORDERED: Dextrose Gel 15 GM/37.5 ML TUBE PO PRN ×2 (07:34)
[2021-11-29] MEDS ORDERED: *HR* Dextrose 50 % in Water (Syg) 50 ML SYRINGE IVP PRN (07:34)
[2021-11-29] MEDS ORDERED: Dexamethasone Sodium Phos/PF 10 MG/ML VIAL IVP ONE (07:39)
[2021-11-29] MEDS ORDERED: Perflutren Lipid Microsphere 1.3 ML in 0.9 % Sodium Chloride 8.7 ML IVP PRN ×2 (08:53→11:41)
[2021-11-29] MEDS ORDERED: *HR* Enoxaparin 40 MG/0.4 ML SYRINGE SQ SCH (09:15)
[2021-11-29] MEDS ORDERED: Remdesivir 200 MG in 0.9 % Sodium Chloride 100 ML IVPB ONE (10:00)
[2021-11-29 10:44] LABS: INR 1.3
[2021-11-29] MEDS: Furosemide 20 MG/2 ML VIAL IVP SCH (10:45)
[2021-11-29 10:56] LABS: Phosphorous 4.6 mg/dL (2.7-4.5)
[2021-11-29 11:06] LABS: Estimated Average Glucose 200 mg/dl; Hemoglobin A1C 8.6 %
[2021-11-29] MEDS ORDERED: Insulin LISPRO 300 UNITS/3 ML VIAL SUBQ SCH ×2 (11:30→21:00)
[2021-11-29 11:39] LABS: Alanine Aminotransferase 41 Units/L (7-52); Albumin 3.4 g/dL (3.5-5.7); Alkaline Phosphatase 48 Units/L (34-104); Aspartate Amino Transferase 34 Units/L (13-39); BUN/Creatinine Ratio 21 (6-26); Bilirubin,Direct 0.1 mg/dL (0.0-0.2); Bilirubin,Indirect 0.2 mg/dL (0.0-1.0); Bilirubin,Total 0.3 mg/dL (0.3-1.0); Blood Urea Nitrogen 21 mg/dL (8-23); C-Reactive Protein 155 mg/L (Less than 10); Calcium 8.1 mg/dL (8.6-10.3); Carbon Dioxide 25 mEq/L (23-29); Chloride 108 mEq/L (98-107); Globulin 3.4 g/dL (2.4-3.5); Glucose 269 mg/dL (70-105); Magnesium 1.9 mg/dL (1.6-2.6); Osmolality,Calculated 290 (280-300); Potassium 3.9 mEq/L (3.5-5.1); Sodium 134 mEq/L (136-145); Total Protein 6.8 g/dL (6.4-8.9); eGFR For African Americans > 60 (> 60); eGFR For Non-African Americans > 60 (> 60)
[2021-11-29 11:40] LABS: Troponin I 0.15 ng/mL (< 0.04)
[2021-11-29] MEDS ORDERED: *HR* Heparin 5,000 UNIT/ML VIAL IVP PRN ×2 (11:41)
[2021-11-29] MEDS ORDERED: *HR* Heparin 5,000 UNIT/ML VIAL IVP ONE (11:41)
[2021-11-29 12:34] LABS: INR 1.2; Prothrombin Time 13.3 Seconds (9.4-12.1)
[2021-11-29 12:35] LABS: Heparin anti-factor XA UFH 0.05 IU/mL (0.30-0.70)
[2021-11-29] MEDS: Heparin 25,000UNIT/250ML 1/2NS 25,000 UNIT/250 ML IV.SOLN IVC SCH (13:45)
[2021-11-29] MEDS ORDERED: Lidocaine -MPF 1% 5 ML AMPUL INFILT ONE (14:30)
[2021-11-29] MEDS ORDERED: Amiodarone Premix 150 MG/100 ML BAG IVPB ONE (15:17)
[2021-11-29] MEDS ORDERED: Amiodarone Premix 360 MG/200 ML BAG IVC ONE (15:17)
[2021-11-29] MEDS: Insulin LISPRO 300 UNITS/3 ML VIAL SUBQ SCH (17:33)
[2021-11-29] MEDS: Budesonide/Formoterol 160/4.5 1 PUFF INH IH SCH (21:00)
[2021-11-29] MEDS: Amiodarone Premix 360 MG/200 ML BAG IVC SCH (21:44)
[2021-11-29 23:19] LABS: Magnesium 2.4 mg/dL (1.6-2.6)
[2021-11-30] MEDS: Insulin LISPRO 300 UNITS/3 ML VIAL SUBQ SCH ×5 (01:29→23:31)
[2021-11-30] MEDS: Heparin 25,000UNIT/250ML 1/2NS 25,000 UNIT/250 ML IV.SOLN IVC SCH ×2 (03:38→21:00)
[2021-11-30 04:30] LABS: Basophils % 0.1 %; Hematocrit 37.8 % (37.5-50.1); Immature Granulocytes % 0.8 % (0-4); Lymphocytes # 1.1 K/mcL (0.6-4.6); Mean Corpuscular HGB Conc 30.7 g/dL (31.6-35.5); Mean Corpuscular Hemoglobin 25.8 pg (28.0-33.3); Mean Corpuscular Volume 84.2 fL (83.0-100.0); Mean Platelet Volume 10.5 fL (9.4-12.4); Monocytes # 0.8 K/mcL (0.0-1.3); Neutrophils # 7.9 K/mcL (1.6-8.9); Platelet Count 201 K/mcL (140-400); Red Blood Count 4.49 M/mcL (4.19-5.50); Red Cell Distribution Width 16.5 % (11.5-14.5); Segmented Neutrophils % 80.1 %; White Blood Count 9.9 K/mcL (4.3-11.1)
[2021-11-30 04:34] LABS: Hemoglobin 11.6 g/dL (12.9-16.9)
[2021-11-30 04:49] LABS: Albumin 3.3 g/dL (3.5-5.7); Albumin/Globulin Ratio 1.1 (1.1-2.2); BUN/Creatinine Ratio 26 (6-26); Bilirubin,Direct 0.1 mg/dL (0.0-0.2); Bilirubin,Indirect 0.2 mg/dL (0.0-1.0); Bilirubin,Total 0.3 mg/dL (0.3-1.0); Blood Urea Nitrogen 22 mg/dL (8-23); Carbon Dioxide 29 mEq/L (23-29); Chloride 103 mEq/L (98-107); Glucose 220 mg/dL (70-105); Magnesium 2.3 mg/dL (1.6-2.6); Osmolality,Calculated 298 (280-300); Phosphorous 1.9 mg/dL (2.7-4.5); Potassium 3.7 mEq/L (3.5-5.1); Sodium 139 mEq/L (136-145); Total Protein 6.3 g/dL (6.4-8.9); eGFR For African Americans > 60 (> 60); eGFR For Non-African Americans > 60 (> 60)
[2021-11-30] MEDS: Potassium Chloride 40 MEQ/200 ML BAG IVPB PRN ×3 (05:38→22:00)
[2021-11-30] MEDS ORDERED: Azithromycin 500 MG in 0.9 % Sodium Chloride 250 ML IVPB SCH (06:00)
[2021-11-30] MEDS ORDERED: cefTRIAXone 1,000 MG in 0.9 % Sodium Chloride Mini Bag 100 ML IVPB SCH (06:00)
[2021-11-30] MEDS: Budesonide/Formoterol 160/4.5 1 PUFF INH IH SCH ×2 (08:17→20:22)
[2021-11-30] MEDS: Cholecalciferol (D-3) 1,000 UNIT (25MCG) TABLET PO SCH (08:41)
[2021-11-30] MEDS: Dexamethasone Sodium Phos/PF 10 MG/ML VIAL IVP SCH (08:41)
[2021-11-30] MEDS: Aspirin Enteric Coated 81 MG Tablet PO SCH (08:41)
[2021-11-30] MEDS: Furosemide 20 MG/2 ML VIAL IVP SCH (08:42)
[2021-11-30] MEDS: Amiodarone Premix 360 MG/200 ML BAG IVC SCH ×2 (09:44→22:00)
[2021-11-30] MEDS ORDERED: Remdesivir 100 MG in 0.9 % Sodium Chloride 100 ML IVPB SCH (10:00)
[2021-11-30] MEDS: Remdesivir 100 MG in 0.9 % Sodium Chloride 100 ML IVPB SCH (15:53)
[2021-11-30 19:25] LABS: Phosphorous 1.7 mg/dL (2.7-4.5); Potassium 3.5 mEq/L (3.5-5.1)
[2021-11-30] MEDS ORDERED: Furosemide 20 MG/2 ML VIAL IVP ONE (23:35)
[2021-11-30] MEDS: Dexmedetomidine HCl 400 MCG/100 ML MLS IVC SCH (23:38)
[2021-12-01] MEDS: Dexmedetomidine HCl 400 MCG/100 ML MLS IVC SCH ×4 (03:55→14:09)
[2021-12-01 04:06] LABS: VBG Ionized Calcium 1.06 mmol/L (1.15-1.35)
[2021-12-01 04:18] LABS: Alanine Aminotransferase 40 Units/L (7-52); Albumin 3.5 g/dL (3.5-5.7); Alkaline Phosphatase 54 Units/L (34-104); Aspartate Amino Transferase 28 Units/L (13-39); Bilirubin,Direct 0.1 mg/dL (0.0-0.2); Bilirubin,Indirect 0.4 mg/dL (0.0-1.0); Bilirubin,Total 0.5 mg/dL (0.3-1.0); C-Reactive Protein 112 mg/L (Less than 10); Globulin 3.4 g/dL (2.4-3.5); Total Protein 6.9 g/dL (6.4-8.9)
[2021-12-01 04:51] LABS: Hematocrit 40.9 % (37.5-50.1); Hemoglobin 12.8 g/dL (12.9-16.9); Mean Corpuscular HGB Conc 31.3 g/dL (31.6-35.5); Mean Corpuscular Hemoglobin 25.8 pg (28.0-33.3); Mean Corpuscular Volume 82.3 fL (83.0-100.0); Mean Platelet Volume 11.6 fL (9.4-12.4); Platelet Count 269 K/mcL (140-400); Red Blood Count 4.97 M/mcL (4.19-5.50); Red Cell Distribution Width 16.3 % (11.5-14.5); White Blood Count 10.4 K/mcL (4.3-11.1)
[2021-12-01] MEDS ORDERED: Morphine Sulfate 2 MG/ML SYRINGE IVP ONE ×3 (04:52→05:28)
[2021-12-01 04:58] LABS: BUN/Creatinine Ratio 26 (6-26); Blood Urea Nitrogen 23 mg/dL (8-23); Calcium 8.3 mg/dL (8.6-10.3); Carbon Dioxide 27 mEq/L (23-29); Chloride 101 mEq/L (98-107); Glucose 256 mg/dL (70-105); Osmolality,Calculated 296 (280-300); Phosphorous 2.9 mg/dL (2.7-4.5); Potassium 3.3 mEq/L (3.5-5.1); Sodium 137 mEq/L (136-145); eGFR For African Americans > 60 (> 60); eGFR For Non-African Americans > 60 (> 60)
[2021-12-01 05:27] LABS: ABG Base Excess 2 mEq/L (-2 to 3); ABG HCO3 26 mEq/L (21-27); ABG Oxygen Saturation 97 % (95-98); ABG PCO2 40 mmHg (35-45); ABG PH 7.43 pH Units (7.32-7.45); ABG PO2 85 mmHg (85-104); ABG TCO2 28 mEq/L (20-26)
[2021-12-01] MEDS ORDERED: *HR* LORazepam 2 MG/ML VIAL ONE (05:31)
[2021-12-01] MEDS ORDERED: *HR* LORazepam 2 MG/ML VIAL IVP ONE (05:32)
[2021-12-01] MEDS: Potassium Chloride 40 MEQ/200 ML BAG IVPB PRN (06:45)
[2021-12-01] MEDS: Calcium Gluconate 1gm/50mL 1 GM/50 ML BAG IVPB PRN ×2 (06:47→17:06)
[2021-12-01] MEDS: Insulin LISPRO 300 UNITS/3 ML VIAL SUBQ SCH ×3 (07:03→18:22)
[2021-12-01] MEDS: Budesonide/Formoterol 160/4.5 1 PUFF INH IH SCH ×2 (08:14→20:04)
[2021-12-01] MEDS: Dexamethasone Sodium Phos/PF 10 MG/ML VIAL IVP SCH (08:27)
[2021-12-01] MEDS: Aspirin Enteric Coated 81 MG Tablet PO SCH (08:28)
[2021-12-01] MEDS: Cholecalciferol (D-3) 1,000 UNIT (25MCG) TABLET PO SCH (08:28)
[2021-12-01] MEDS: Furosemide 20 MG/2 ML VIAL IVP SCH ×2 (08:28→17:06)
[2021-12-01] MEDS: Amiodarone Premix 360 MG/200 ML BAG IVC SCH (09:35)
[2021-12-01] MEDS: Heparin 25,000UNIT/250ML 1/2NS 25,000 UNIT/250 ML IV.SOLN IVC SCH (10:24)
[2021-12-01] MEDS: Remdesivir 100 MG in 0.9 % Sodium Chloride 100 ML IVPB SCH (14:39)
[2021-12-01 14:50] LABS: VBG Ionized Calcium 0.97 mmol/L (1.15-1.35)
[2021-12-01] MEDS: Insulin DETEMIR 100 UNIT/ML X5UNITS SUBQ SCH (20:47)
[2021-12-01] MEDS: QUEtiapine Fumarate 25 MG TABLET PO SCH (20:47)
[2021-12-01 23:18] LABS: VBG Ionized Calcium 1.07 mmol/L (1.15-1.35)
[2021-12-02] MEDS: Dexmedetomidine HCl 400 MCG/100 ML MLS IVC SCH ×4 (00:01→19:41)
[2021-12-02] MEDS: Insulin LISPRO 300 UNITS/3 ML VIAL SUBQ SCH ×5 (00:08→23:29)
[2021-12-02] MEDS: Heparin 25,000UNIT/250ML 1/2NS 25,000 UNIT/250 ML IV.SOLN IVC SCH ×2 (00:08→14:00)
[2021-12-02 04:04] LABS: Hematocrit 43.1 % (37.5-50.1); Mean Corpuscular HGB Conc 32.5 g/dL (31.6-35.5); Mean Corpuscular Hemoglobin 26.5 pg (28.0-33.3); Mean Corpuscular Volume 81.5 fL (83.0-100.0); Mean Platelet Volume 10.8 fL (9.4-12.4); Nucleated Red Blood Cells 0.7 /100 WBC (0); Platelet Count 317 K/mcL (140-400); Red Blood Count 5.29 M/mcL (4.19-5.50); Red Cell Distribution Width 16.5 % (11.5-14.5); White Blood Count 14.5 K/mcL (4.3-11.1)
[2021-12-02 04:16] LABS: Alanine Aminotransferase 36 Units/L (7-52); Albumin 3.5 g/dL (3.5-5.7); Alkaline Phosphatase 67 Units/L (34-104); Aspartate Amino Transferase 25 Units/L (13-39); BUN/Creatinine Ratio 26 (6-26); Bilirubin,Direct 0.1 mg/dL (0.0-0.2); Bilirubin,Indirect 0.6 mg/dL (0.0-1.0); Bilirubin,Total 0.7 mg/dL (0.3-1.0); Blood Urea Nitrogen 23 mg/dL (8-23); C-Reactive Protein 66 mg/L (Less than 10); Calcium 8.9 mg/dL (8.6-10.3); Carbon Dioxide 30 mEq/L (23-29); Chloride 102 mEq/L (98-107); Globulin 3.5 g/dL (2.4-3.5); Glucose 229 mg/dL (70-105); Osmolality,Calculated 297 (280-300); Phosphorous 3.6 mg/dL (2.7-4.5); Potassium 3.8 mEq/L (3.5-5.1); Sodium 138 mEq/L (136-145); eGFR For African Americans > 60 (> 60); eGFR For Non-African Americans > 60 (> 60)
[2021-12-02 05:35] LABS: Lymphocytes # 2.8 K/mcL (0.6-4.6); Monocytes # 0.3 K/mcL (0.0-1.3); Neutrophils # 11.5 K/mcL (1.6-8.9)
[2021-12-02 05:36] LABS: Platelet Estimate Normal (Normal); Reactive Lymphocytes Present (Not Present)
[2021-12-02] MEDS: Furosemide 20 MG/2 ML VIAL IVP SCH ×2 (05:52→16:39)
[2021-12-02 06:21] LABS: VBG Ionized Calcium 1.08 mmol/L (1.15-1.35)
[2021-12-02] MEDS: Calcium Gluconate 1gm/50mL 1 GM/50 ML BAG IVPB PRN ×2 (06:29)
[2021-12-02] MEDS: Potassium Chloride 40 MEQ/200 ML BAG IVPB PRN ×2 (07:05)
[2021-12-02] MEDS: Budesonide/Formoterol 160/4.5 1 PUFF INH IH SCH ×2 (08:19→20:47)
[2021-12-02] MEDS: Aspirin Enteric Coated 81 MG Tablet PO SCH (08:47)
[2021-12-02] MEDS: Dexamethasone Sodium Phos/PF 10 MG/ML VIAL IVP SCH (08:47)
[2021-12-02] MEDS: Cholecalciferol (D-3) 1,000 UNIT (25MCG) TABLET PO SCH (08:47)
[2021-12-02] MEDS: Insulin DETEMIR 100 UNIT/ML X5UNITS SUBQ SCH ×2 (08:53→20:17)
[2021-12-02] MEDS: Remdesivir 100 MG in 0.9 % Sodium Chloride 100 ML IVPB SCH (15:06)
[2021-12-02 15:55] LABS: VBG Ionized Calcium 1.12 mmol/L (1.15-1.35)
[2021-12-02] MEDS: QUEtiapine Fumarate 25 MG TABLET PO SCH (20:17)
[2021-12-02] MEDS ORDERED: Morphine Sulfate 2 MG/ML SYRINGE IVP ONE (23:08)
[2021-12-03] MEDS: Dexmedetomidine HCl 400 MCG/100 ML MLS IVC SCH ×3 (00:23→20:51)
[2021-12-03] MEDS: Furosemide 20 MG/2 ML VIAL IVP SCH ×2 (03:25→16:05)
[2021-12-03 03:50] LABS: Mean Corpuscular HGB Conc 32.6 g/dL (31.6-35.5); Mean Corpuscular Hemoglobin 26.3 pg (28.0-33.3); Mean Corpuscular Volume 80.7 fL (83.0-100.0); Mean Platelet Volume 10.5 fL (9.4-12.4); Nucleated Red Blood Cells 0.2 /100 WBC (0); Platelet Count 277 K/mcL (140-400); Red Blood Count 5.33 M/mcL (4.19-5.50); Red Cell Distribution Width 16.6 % (11.5-14.5); White Blood Count 13.8 K/mcL (4.3-11.1)
[2021-12-03 03:51] LABS: VBG Ionized Calcium 1.06 mmol/L (1.15-1.35)
[2021-12-03 04:08] LABS: Alanine Aminotransferase 30 Units/L (7-52); Albumin 3.1 g/dL (3.5-5.7); Alkaline Phosphatase 63 Units/L (34-104); Aspartate Amino Transferase 21 Units/L (13-39); BUN/Creatinine Ratio 26 (6-26); Bilirubin,Total 0.6 mg/dL (0.3-1.0); Blood Urea Nitrogen 25 mg/dL (8-23); Calcium 8.4 mg/dL (8.6-10.3); Carbon Dioxide 33 mEq/L (23-29); Chloride 100 mEq/L (98-107); Globulin 3.1 g/dL (2.4-3.5); Glucose 232 mg/dL (70-105); Magnesium 1.9 mg/dL (1.6-2.6); Osmolality,Calculated 298 (280-300); Phosphorous 4.7 mg/dL (2.7-4.5); Potassium 3.8 mEq/L (3.5-5.1); Sodium 138 mEq/L (136-145); Total Protein 6.2 g/dL (6.4-8.9); eGFR For African Americans > 60 (> 60); eGFR For Non-African Americans > 60 (> 60)
[2021-12-03] MEDS: Calcium Gluconate 1gm/50mL 1 GM/50 ML BAG IVPB PRN ×2 (05:23→14:00)
[2021-12-03] MEDS: Potassium Chloride 40 MEQ/200 ML BAG IVPB PRN (05:23)
[2021-12-03 05:48] LABS: Bilirubin,Direct 0.1 mg/dL (0.0-0.2); Bilirubin,Indirect 0.5 mg/dL (0.0-1.0); C-Reactive Protein 34 mg/L (Less than 10)
[2021-12-03] MEDS: Insulin LISPRO 300 UNITS/3 ML VIAL SUBQ SCH ×3 (05:50→18:09)
[2021-12-03 06:19] LABS: Lymphocytes # 2.1 K/mcL (0.6-4.6); Monocytes # 0.3 K/mcL (0.0-1.3); Neutrophils # 11.5 K/mcL (1.6-8.9)
[2021-12-03 06:20] LABS: Platelet Estimate Normal (Normal)
[2021-12-03] MEDS: Budesonide/Formoterol 160/4.5 1 PUFF INH IH SCH ×2 (08:04→20:54)
[2021-12-03] MEDS: *HR* Enoxaparin 80 MG/0.8 ML SYRINGE SQ SCH ×2 (08:31→20:32)
[2021-12-03] MEDS: Dexamethasone Sodium Phos/PF 10 MG/ML VIAL IVP SCH (08:31)
[2021-12-03] MEDS: Aspirin Enteric Coated 81 MG Tablet PO SCH (08:31)
[2021-12-03] MEDS: Cholecalciferol (D-3) 1,000 UNIT (25MCG) TABLET PO SCH (08:31)
[2021-12-03] MEDS: Insulin DETEMIR 100 UNIT/ML X5UNITS SUBQ SCH ×2 (11:29→20:34)
[2021-12-03] MEDS: Clotrimazole 1% CRM 15 GM TUBE TP SCH ×2 (11:57→20:35)
[2021-12-03 12:42] LABS: VBG Ionized Calcium 1.08 mmol/L (1.15-1.35)
[2021-12-03] MEDS: Remdesivir 100 MG in 0.9 % Sodium Chloride 100 ML IVPB SCH (16:08)
[2021-12-03] MEDS: QUEtiapine Fumarate 25 MG TABLET PO SCH (20:35)
[2021-12-04] MEDS: Insulin LISPRO 300 UNITS/3 ML VIAL SUBQ SCH ×5 (01:04→20:52)
[2021-12-04 04:07] LABS: VBG Ionized Calcium 1.11 mmol/L (1.15-1.35)
[2021-12-04 04:14] LABS: Basophils # 0.1 K/mcL (0.0-0.2); Basophils % 0.7 %; Eosinophils % 0.1 %; Hematocrit 44.4 % (37.5-50.1); Hemoglobin 14.2 g/dL (12.9-16.9); Immature Granulocytes % 5.8 % (0-4); Lymphocytes # 1.5 K/mcL (0.6-4.6); Lymphocytes % 9.9 %; Mean Corpuscular Hemoglobin 26.3 pg (28.0-33.3); Mean Corpuscular Volume 82.2 fL (83.0-100.0); Monocytes # 0.8 K/mcL (0.0-1.3); Monocytes % 5.1 %; Neutrophils # 11.6 K/mcL (1.6-8.9); Nucleated Red Blood Cells 0.2 /100 WBC (0); Platelet Count 242 K/mcL (140-400); Red Cell Distribution Width 16.5 % (11.5-14.5); Segmented Neutrophils % 78.4 %; White Blood Count 14.8 K/mcL (4.3-11.1)
[2021-12-04 04:33] LABS: Alanine Aminotransferase 29 Units/L (7-52); Albumin 3.1 g/dL (3.5-5.7); Albumin/Globulin Ratio 1.1 (1.1-2.2); Alkaline Phosphatase 56 Units/L (34-104); Aspartate Amino Transferase 18 Units/L (13-39); BUN/Creatinine Ratio 27 (6-26); Bilirubin,Direct 0.1 mg/dL (0.0-0.2); Bilirubin,Indirect 0.6 mg/dL (0.0-1.0); Bilirubin,Total 0.7 mg/dL (0.3-1.0); Blood Urea Nitrogen 28 mg/dL (8-23); C-Reactive Protein 22 mg/L (Less than 10); Calcium 8.2 mg/dL (8.6-10.3); Carbon Dioxide 35 mEq/L (23-29); Chloride 98 mEq/L (98-107); Globulin 2.8 g/dL (2.4-3.5); Glucose 179 mg/dL (70-105); Magnesium 2.1 mg/dL (1.6-2.6); Osmolality,Calculated 298 (280-300); Phosphorous 4.5 mg/dL (2.7-4.5); Sodium 139 mEq/L (136-145); Total Protein 5.9 g/dL (6.4-8.9); eGFR For African Americans > 60 (> 60); eGFR For Non-African Americans > 60 (> 60)
[2021-12-04 04:44] LABS: Platelet Estimate Normal (Normal)
[2021-12-04] MEDS: Furosemide 20 MG/2 ML VIAL IVP SCH ×2 (05:28→15:31)
[2021-12-04] MEDS: Budesonide/Formoterol 160/4.5 1 PUFF INH IH SCH ×2 (07:48→19:38)
[2021-12-04] MEDS: *HR* Enoxaparin 80 MG/0.8 ML SYRINGE SQ SCH ×2 (08:28→20:50)
[2021-12-04] MEDS: Aspirin Enteric Coated 81 MG Tablet PO SCH (08:29)
[2021-12-04] MEDS: Cholecalciferol (D-3) 1,000 UNIT (25MCG) TABLET PO SCH (08:29)
[2021-12-04] MEDS: Dexamethasone Sodium Phos/PF 10 MG/ML VIAL IVP SCH (08:29)
[2021-12-04] MEDS: Insulin DETEMIR 100 UNIT/ML X5UNITS SUBQ SCH ×2 (08:31→20:51)
[2021-12-04] MEDS: Clotrimazole 1% CRM 15 GM TUBE TP SCH ×2 (09:03→20:54)
[2021-12-04] MEDS: Dexmedetomidine HCl 400 MCG/100 ML MLS IVC SCH (14:32)
[2021-12-04] MEDS: QUEtiapine Fumarate 25 MG TABLET PO SCH (20:50)
[2021-12-05] MEDS: Furosemide 20 MG/2 ML VIAL IVP SCH ×2 (03:28→16:34)
[2021-12-05 04:43] LABS: VBG Ionized Calcium 0.99 mmol/L (1.15-1.35)
[2021-12-05 04:52] LABS: Alanine Aminotransferase 28 Units/L (7-52); Albumin 3.1 g/dL (3.5-5.7); Albumin/Globulin Ratio 1.1 (1.1-2.2); Alkaline Phosphatase 49 Units/L (34-104); Aspartate Amino Transferase 16 Units/L (13-39); BUN/Creatinine Ratio 35 (6-26); Bilirubin,Total 0.6 mg/dL (0.3-1.0); Blood Urea Nitrogen 44 mg/dL (8-23); C-Reactive Protein 12 mg/L (Less than 10); Calcium 8.2 mg/dL (8.6-10.3); Carbon Dioxide 34 mEq/L (23-29); Chloride 95 mEq/L (98-107); Globulin 2.8 g/dL (2.4-3.5); Glucose 207 mg/dL (70-105); Magnesium 2.3 mg/dL (1.6-2.6); Osmolality,Calculated 299 (280-300); Sodium 136 mEq/L (136-145); Total Protein 5.9 g/dL (6.4-8.9); eGFR For African Americans > 60 (> 60); eGFR For Non-African Americans 59 (> 60)
[2021-12-05 04:52] LABS: Basophils # 0.1 K/mcL (0.0-0.2); Basophils % 0.3 %; Eosinophils % 0.1 %; Hematocrit 43.9 % (37.5-50.1); Immature Granulocytes % 3.4 % (0-4); Lymphocytes # 1.4 K/mcL (0.6-4.6); Lymphocytes % 9.1 %; Mean Corpuscular HGB Conc 31.9 g/dL (31.6-35.5); Mean Corpuscular Hemoglobin 26.7 pg (28.0-33.3); Mean Corpuscular Volume 83.8 fL (83.0-100.0); Mean Platelet Volume 11.1 fL (9.4-12.4); Monocytes # 0.7 K/mcL (0.0-1.3); Monocytes % 4.7 %; Neutrophils # 12.7 K/mcL (1.6-8.9); Platelet Count 237 K/mcL (140-400); Red Blood Count 5.24 M/mcL (4.19-5.50); Red Cell Distribution Width 16.9 % (11.5-14.5); Segmented Neutrophils % 82.4 %; White Blood Count 15.4 K/mcL (4.3-11.1)
[2021-12-05] MEDS: Calcium Gluconate 1gm/50mL 1 GM/50 ML BAG IVPB SCH ×2 (05:22→05:54)
[2021-12-05] MEDS: Dexmedetomidine HCl 400 MCG/100 ML MLS IVC SCH ×2 (07:14→19:22)
[2021-12-05] MEDS: *HR* Enoxaparin 80 MG/0.8 ML SYRINGE SQ SCH ×2 (07:22→20:23)
[2021-12-05] MEDS: Cholecalciferol (D-3) 1,000 UNIT (25MCG) TABLET PO SCH (07:23)
[2021-12-05] MEDS: Aspirin Enteric Coated 81 MG Tablet PO SCH (07:23)
[2021-12-05] MEDS: Dexamethasone Sodium Phos/PF 10 MG/ML VIAL IVP SCH (07:23)
[2021-12-05] MEDS: Insulin DETEMIR 100 UNIT/ML X5UNITS SUBQ SCH ×2 (07:25→20:24)
[2021-12-05] MEDS: Budesonide/Formoterol 160/4.5 1 PUFF INH IH SCH ×2 (08:05→21:45)
[2021-12-05] MEDS: Insulin LISPRO 300 UNITS/3 ML VIAL SUBQ SCH ×4 (08:09→20:24)
[2021-12-05] MEDS: Clotrimazole 1% CRM 15 GM TUBE TP SCH ×2 (08:10→20:25)
[2021-12-05] MEDS ORDERED: Menthol 1 EACH LOZENGE PO PRN (11:56)
[2021-12-05] MEDS: QUEtiapine Fumarate 25 MG TABLET PO SCH (20:23)
[2021-12-06] MEDS: Furosemide 20 MG/2 ML VIAL IVP SCH ×2 (03:15→15:16)
[2021-12-06 03:40] LABS: Basophils # 0.1 K/mcL (0.0-0.2); Basophils % 0.3 %; Eosinophils # 0.2 K/mcL (0.0-0.6); Eosinophils % 1.4 %; Hematocrit 43.8 % (37.5-50.1); Hemoglobin 13.9 g/dL (12.9-16.9); Immature Granulocytes % 4.2 % (0-4); Lymphocytes # 1.9 K/mcL (0.6-4.6); Lymphocytes % 12.4 %; Mean Corpuscular HGB Conc 31.7 g/dL (31.6-35.5); Mean Corpuscular Hemoglobin 26.7 pg (28.0-33.3); Mean Corpuscular Volume 84.1 fL (83.0-100.0); Monocytes # 0.8 K/mcL (0.0-1.3); Monocytes % 5.5 %; Neutrophils # 11.7 K/mcL (1.6-8.9); Platelet Count 207 K/mcL (140-400); Red Blood Count 5.21 M/mcL (4.19-5.50); Red Cell Distribution Width 16.3 % (11.5-14.5); Segmented Neutrophils % 76.2 %; White Blood Count 15.4 K/mcL (4.3-11.1)
[2021-12-06 03:45] LABS: VBG Ionized Calcium 1.08 mmol/L (1.15-1.35)
[2021-12-06 03:59] LABS: Alanine Aminotransferase 30 Units/L (7-52); Albumin 3.2 g/dL (3.5-5.7); Albumin/Globulin Ratio 1.2 (1.1-2.2); Aspartate Amino Transferase 21 Units/L (13-39); BUN/Creatinine Ratio 38 (6-26); Bilirubin,Total 0.8 mg/dL (0.3-1.0); Blood Urea Nitrogen 45 mg/dL (8-23); Calcium 8.4 mg/dL (8.6-10.3); Carbon Dioxide 35 mEq/L (23-29); Chloride 94 mEq/L (98-107); Globulin 2.7 g/dL (2.4-3.5); Glucose 162 mg/dL (70-105); Magnesium 2.2 mg/dL (1.6-2.6); Osmolality,Calculated 295 (280-300); Phosphorous 4.5 mg/dL (2.7-4.5); Potassium 3.7 mEq/L (3.5-5.1); Sodium 135 mEq/L (136-145); Total Protein 5.9 g/dL (6.4-8.9); eGFR For African Americans > 60 (> 60); eGFR For Non-African Americans > 60 (> 60)
[2021-12-06] MEDS: Insulin LISPRO 300 UNITS/3 ML VIAL SUBQ SCH ×5 (07:44→19:53)
[2021-12-06] MEDS: *HR* Enoxaparin 80 MG/0.8 ML SYRINGE SQ SCH ×2 (07:51→19:32)
[2021-12-06] MEDS: Aspirin Enteric Coated 81 MG Tablet PO SCH (07:51)
[2021-12-06] MEDS: Cholecalciferol (D-3) 1,000 UNIT (25MCG) TABLET PO SCH (07:51)
[2021-12-06] MEDS: Dexamethasone Sodium Phos/PF 10 MG/ML VIAL IVP SCH (07:52)
[2021-12-06] MEDS: Budesonide/Formoterol 160/4.5 1 PUFF INH IH SCH ×2 (07:53→19:35)
[2021-12-06] MEDS: Insulin DETEMIR 100 UNIT/ML X5UNITS SUBQ SCH ×2 (07:56→19:53)
[2021-12-06] MEDS: Clotrimazole 1% CRM 15 GM TUBE TP SCH ×2 (07:59→19:32)
[2021-12-06] MEDS ORDERED: 0.9 % Sodium Chloride 250 ML ONE (11:21)
[2021-12-06] MEDS: Calcium Gluconate 1gm/50mL 1 GM/50 ML BAG IVPB PRN (12:50)
[2021-12-06 17:58] LABS: Alkaline Phosphatase 47 Units/L (34-104)
[2021-12-06] MEDS: QUEtiapine Fumarate 25 MG TABLET PO SCH (19:32)
[2021-12-06] MEDS: Acetaminophen 325 MG TABLET PO PRN (20:37)
[2021-12-07] MEDS: Dexmedetomidine HCl 400 MCG/100 ML MLS IVC SCH (01:38)
[2021-12-07] MEDS: Furosemide 20 MG/2 ML VIAL IVP SCH ×2 (03:25→17:06)
[2021-12-07 04:11] LABS: VBG Ionized Calcium 1.06 mmol/L (1.15-1.35)
[2021-12-07 04:12] LABS: Basophils # 0.1 K/mcL (0.0-0.2); Basophils % 0.3 %; Eosinophils # 0.3 K/mcL (0.0-0.6); Eosinophils % 1.6 %; Hematocrit 44.6 % (37.5-50.1); Hemoglobin 13.9 g/dL (12.9-16.9); Immature Granulocytes % 2.5 % (0-4); Lymphocytes # 2.2 K/mcL (0.6-4.6); Lymphocytes % 13.4 %; Mean Corpuscular HGB Conc 31.2 g/dL (31.6-35.5); Mean Corpuscular Hemoglobin 25.8 pg (28.0-33.3); Mean Corpuscular Volume 82.9 fL (83.0-100.0); Mean Platelet Volume 11.4 fL (9.4-12.4); Neutrophils # 12.4 K/mcL (1.6-8.9); Platelet Count 219 K/mcL (140-400); Red Blood Count 5.38 M/mcL (4.19-5.50); Red Cell Distribution Width 16.8 % (11.5-14.5); Segmented Neutrophils % 76.2 %; White Blood Count 16.3 K/mcL (4.3-11.1)
[2021-12-07 04:31] LABS: Alanine Aminotransferase 35 Units/L (7-52); Albumin 3.2 g/dL (3.5-5.7); Albumin/Globulin Ratio 1.3 (1.1-2.2); Alkaline Phosphatase 47 Units/L (34-104); Aspartate Amino Transferase 23 Units/L (13-39); BUN/Creatinine Ratio 33 (6-26); Bilirubin,Total 1.1 mg/dL (0.3-1.0); Blood Urea Nitrogen 36 mg/dL (8-23); Calcium 8.6 mg/dL (8.6-10.3); Carbon Dioxide 36 mEq/L (23-29); Chloride 98 mEq/L (98-107); Globulin 2.5 g/dL (2.4-3.5); Glucose 123 mg/dL (70-105); Magnesium 2.1 mg/dL (1.6-2.6); Osmolality,Calculated 286 (280-300); Phosphorous 3.5 mg/dL (2.7-4.5); Potassium 3.6 mEq/L (3.5-5.1); Sodium 133 mEq/L (136-145); Total Protein 5.7 g/dL (6.4-8.9); eGFR For African Americans > 60 (> 60); eGFR For Non-African Americans > 60 (> 60)
[2021-12-07] MEDS: Potassium Chloride 40 MEQ/200 ML BAG IVPB PRN (04:39)
[2021-12-07] MEDS: Calcium Gluconate 1gm/50mL 1 GM/50 ML BAG IVPB PRN (04:39)
[2021-12-07] MEDS: *HR* Enoxaparin 80 MG/0.8 ML SYRINGE SQ SCH ×2 (07:32→20:13)
[2021-12-07] MEDS: Dexamethasone Sodium Phos/PF 10 MG/ML VIAL IVP SCH (07:33)
[2021-12-07] MEDS: Insulin LISPRO 300 UNITS/3 ML VIAL SUBQ SCH ×4 (07:33→20:11)
[2021-12-07] MEDS: Insulin DETEMIR 100 UNIT/ML X5UNITS SUBQ SCH ×2 (07:34→20:12)
[2021-12-07] MEDS: Cholecalciferol (D-3) 1,000 UNIT (25MCG) TABLET PO SCH (07:34)
[2021-12-07] MEDS: Aspirin Enteric Coated 81 MG Tablet PO SCH (07:34)
[2021-12-07] MEDS: Budesonide/Formoterol 160/4.5 1 PUFF INH IH SCH ×2 (07:44→20:15)
[2021-12-07] MEDS: Clotrimazole 1% CRM 15 GM TUBE TP SCH ×2 (08:32→20:12)
[2021-12-07] MEDS: Acetaminophen 325 MG TABLET PO PRN (17:37)
[2021-12-07] MEDS: QUEtiapine Fumarate 25 MG TABLET PO SCH (20:14)
[2021-12-08] MEDS: Furosemide 20 MG/2 ML VIAL IVP SCH ×2 (03:50→16:40)
[2021-12-08 04:18] LABS: Basophils % 0.2 %; Eosinophils # 0.4 K/mcL (0.0-0.6); Eosinophils % 2.3 %; Hematocrit 47.3 % (37.5-50.1); Hemoglobin 14.6 g/dL (12.9-16.9); Immature Granulocytes % 1.7 % (0-4); Lymphocytes # 2.2 K/mcL (0.6-4.6); Lymphocytes % 13.8 %; Mean Corpuscular HGB Conc 30.9 g/dL (31.6-35.5); Mean Corpuscular Hemoglobin 25.8 pg (28.0-33.3); Mean Corpuscular Volume 83.6 fL (83.0-100.0); Mean Platelet Volume 10.9 fL (9.4-12.4); Monocytes # 1.1 K/mcL (0.0-1.3); Monocytes % 6.9 %; Neutrophils # 12.2 K/mcL (1.6-8.9); Platelet Count 209 K/mcL (140-400); Red Blood Count 5.66 M/mcL (4.19-5.50); Red Cell Distribution Width 16.9 % (11.5-14.5); Segmented Neutrophils % 75.1 %; White Blood Count 16.2 K/mcL (4.3-11.1)
[2021-12-08 04:36] LABS: Alanine Aminotransferase 40 Units/L (7-52); Albumin 3.4 g/dL (3.5-5.7); Albumin/Globulin Ratio 1.2 (1.1-2.2); Alkaline Phosphatase 46 Units/L (34-104); Aspartate Amino Transferase 26 Units/L (13-39); BUN/Creatinine Ratio 28 (6-26); Bilirubin,Total 1.2 mg/dL (0.3-1.0); Blood Urea Nitrogen 29 mg/dL (8-23); Calcium 8.6 mg/dL (8.6-10.3); Carbon Dioxide 34 mEq/L (23-29); Chloride 95 mEq/L (98-107); Globulin 2.8 g/dL (2.4-3.5); Glucose 126 mg/dL (70-105); Osmolality,Calculated 289 (280-300); Phosphorous 3.6 mg/dL (2.7-4.5); Potassium 3.9 mEq/L (3.5-5.1); Sodium 136 mEq/L (136-145); Total Protein 6.2 g/dL (6.4-8.9); eGFR For African Americans > 60 (> 60); eGFR For Non-African Americans > 60 (> 60)
[2021-12-08] MEDS: Budesonide/Formoterol 160/4.5 1 PUFF INH IH SCH ×2 (08:35→20:14)
[2021-12-08] MEDS: Aspirin Enteric Coated 81 MG Tablet PO SCH (08:43)
[2021-12-08] MEDS: Cholecalciferol (D-3) 1,000 UNIT (25MCG) TABLET PO SCH (08:43)
[2021-12-08] MEDS: Insulin DETEMIR 100 UNIT/ML X5UNITS SUBQ SCH ×2 (08:44→21:21)
[2021-12-08] MEDS: Dexamethasone Sodium Phos/PF 10 MG/ML VIAL IVP SCH (08:48)
[2021-12-08] MEDS: Insulin LISPRO 300 UNITS/3 ML VIAL SUBQ SCH ×4 (08:52→21:21)
[2021-12-08] MEDS: *HR* Enoxaparin 80 MG/0.8 ML SYRINGE SQ SCH ×2 (08:53→21:21)
[2021-12-08] MEDS: Clotrimazole 1% CRM 15 GM TUBE TP SCH ×2 (08:55→21:22)
[2021-12-08] MEDS: Dexmedetomidine HCl 400 MCG/100 ML MLS IVC SCH (11:59)
[2021-12-08] MEDS: QUEtiapine Fumarate 25 MG TABLET PO SCH (21:21)
[2021-12-09] MEDS: Furosemide 20 MG/2 ML VIAL IVP SCH ×2 (03:22→17:16)
[2021-12-09 03:50] LABS: Basophils % 0.2 %; Eosinophils # 0.1 K/mcL (0.0-0.6); Eosinophils % 0.9 %; Hematocrit 44.3 % (37.5-50.1); Hemoglobin 14.1 g/dL (12.9-16.9); Immature Granulocytes % 1.2 % (0-4); Lymphocytes # 2.2 K/mcL (0.6-4.6); Lymphocytes % 13.4 %; Mean Corpuscular HGB Conc 31.8 g/dL (31.6-35.5); Mean Corpuscular Hemoglobin 26.8 pg (28.0-33.3); Mean Corpuscular Volume 84.1 fL (83.0-100.0); Mean Platelet Volume 11.9 fL (9.4-12.4); Monocytes # 1.2 K/mcL (0.0-1.3); Monocytes % 7.4 %; Neutrophils # 12.5 K/mcL (1.6-8.9); Platelet Count 203 K/mcL (140-400); Red Blood Count 5.27 M/mcL (4.19-5.50); Red Cell Distribution Width 16.4 % (11.5-14.5); Segmented Neutrophils % 76.9 %; White Blood Count 16.3 K/mcL (4.3-11.1)
[2021-12-09 04:10] LABS: Alanine Aminotransferase 41 Units/L (7-52); Albumin 3.3 g/dL (3.5-5.7); Albumin/Globulin Ratio 1.4 (1.1-2.2); Alkaline Phosphatase 50 Units/L (34-104); Aspartate Amino Transferase 24 Units/L (13-39); BUN/Creatinine Ratio 26 (6-26); Blood Urea Nitrogen 26 mg/dL (8-23); Calcium 8.7 mg/dL (8.6-10.3); Carbon Dioxide 34 mEq/L (23-29); Chloride 97 mEq/L (98-107); Globulin 2.3 g/dL (2.4-3.5); Glucose 136 mg/dL (70-105); Osmolality,Calculated 289 (280-300); Potassium 3.9 mEq/L (3.5-5.1); Sodium 136 mEq/L (136-145); Total Protein 5.6 g/dL (6.4-8.9); eGFR For African Americans > 60 (> 60); eGFR For Non-African Americans > 60 (> 60)
[2021-12-09] MEDS: Aspirin Enteric Coated 81 MG Tablet PO SCH (08:06)
[2021-12-09] MEDS: Cholecalciferol (D-3) 1,000 UNIT (25MCG) TABLET PO SCH (08:06)
[2021-12-09] MEDS: Insulin DETEMIR 100 UNIT/ML X5UNITS SUBQ SCH ×2 (08:06→22:29)
[2021-12-09] MEDS: Insulin LISPRO 300 UNITS/3 ML VIAL SUBQ SCH ×4 (08:07→22:29)
[2021-12-09] MEDS: *HR* Enoxaparin 80 MG/0.8 ML SYRINGE SQ SCH ×2 (08:07→22:29)
[2021-12-09] MEDS: Clotrimazole 1% CRM 15 GM TUBE TP SCH ×2 (08:07→22:29)
[2021-12-09] MEDS: Budesonide/Formoterol 160/4.5 1 PUFF INH IH SCH ×2 (09:00→20:19)
[2021-12-09] MEDS: QUEtiapine Fumarate 25 MG TABLET PO SCH (22:30)
[2021-12-10] MEDS: Furosemide 20 MG/2 ML VIAL IVP SCH ×2 (03:22→15:09)
[2021-12-10 04:01] LABS: Basophils % 0.2 %; Eosinophils # 0.1 K/mcL (0.0-0.6); Eosinophils % 1.3 %; Hemoglobin 14.4 g/dL (12.9-16.9); Immature Granulocytes % 1.2 % (0-4); Lymphocytes # 1.8 K/mcL (0.6-4.6); Lymphocytes % 17.2 %; Mean Corpuscular Hemoglobin 26.9 pg (28.0-33.3); Mean Corpuscular Volume 84.1 fL (83.0-100.0); Mean Platelet Volume 12.2 fL (9.4-12.4); Monocytes # 0.9 K/mcL (0.0-1.3); Monocytes % 8.6 %; Neutrophils # 7.5 K/mcL (1.6-8.9); Platelet Count 184 K/mcL (140-400); Red Blood Count 5.35 M/mcL (4.19-5.50); Red Cell Distribution Width 16.5 % (11.5-14.5); Segmented Neutrophils % 71.5 %; White Blood Count 10.5 K/mcL (4.3-11.1)
[2021-12-10 04:11] LABS: BUN/Creatinine Ratio 24 (6-26); Blood Urea Nitrogen 25 mg/dL (8-23); Calcium 8.5 mg/dL (8.6-10.3); Carbon Dioxide 34 mEq/L (23-29); Chloride 96 mEq/L (98-107); Glucose 108 mg/dL (70-105); Osmolality,Calculated 289 (280-300); Potassium 3.4 mEq/L (3.5-5.1); Sodium 137 mEq/L (136-145); eGFR For African Americans > 60 (> 60); eGFR For Non-African Americans > 60 (> 60)
[2021-12-10] MEDS: *HR* Enoxaparin 80 MG/0.8 ML SYRINGE SQ SCH ×2 (10:10→20:35)
[2021-12-10] MEDS: Aspirin Enteric Coated 81 MG Tablet PO SCH (10:12)
[2021-12-10] MEDS: Insulin DETEMIR 100 UNIT/ML X5UNITS SUBQ SCH ×2 (10:12→20:38)
[2021-12-10] MEDS: Cholecalciferol (D-3) 1,000 UNIT (25MCG) TABLET PO SCH (10:12)
[2021-12-10] MEDS: Insulin LISPRO 300 UNITS/3 ML VIAL SUBQ SCH ×4 (10:13→20:38)
[2021-12-10] MEDS: Clotrimazole 1% CRM 15 GM TUBE TP SCH ×2 (10:15→20:39)
[2021-12-10] MEDS: Budesonide/Formoterol 160/4.5 1 PUFF INH IH SCH ×2 (10:21→20:49)
[2021-12-10] MEDS: QUEtiapine Fumarate 25 MG TABLET PO SCH (20:36)
[2021-12-11] MEDS ORDERED: Benzonatate 100 MG CAPSULE PO PRN (01:27)
[2021-12-11] MEDS: Furosemide 20 MG/2 ML VIAL IVP SCH ×2 (02:46→16:24)
[2021-12-11] MEDS: Budesonide/Formoterol 160/4.5 1 PUFF INH IH SCH ×2 (07:43→20:46)
[2021-12-11] MEDS: *HR* Enoxaparin 80 MG/0.8 ML SYRINGE SQ SCH (08:35)
[2021-12-11] MEDS: Aspirin Enteric Coated 81 MG Tablet PO SCH (08:35)
[2021-12-11] MEDS: Cholecalciferol (D-3) 1,000 UNIT (25MCG) TABLET PO SCH (08:35)
[2021-12-11] MEDS: Clotrimazole 1% CRM 15 GM TUBE TP SCH ×2 (08:36→20:52)
[2021-12-11] MEDS: Insulin DETEMIR 100 UNIT/ML X5UNITS SUBQ SCH ×2 (08:50→20:52)
[2021-12-11] MEDS: Insulin LISPRO 300 UNITS/3 ML VIAL SUBQ SCH ×4 (08:50→20:51)
[2021-12-11] MEDS: Acetaminophen 325 MG TABLET PO PRN (14:07)
[2021-12-11] MEDS: *HR* Enoxaparin 40 MG/0.4 ML SYRINGE SQ SCH (20:52)
[2021-12-11] MEDS: QUEtiapine Fumarate 25 MG TABLET PO SCH (20:52)
[2021-12-12] MEDS: Furosemide 20 MG/2 ML VIAL IVP SCH (04:10)
[2021-12-12] MEDS: Budesonide/Formoterol 160/4.5 1 PUFF INH IH SCH ×2 (07:38→20:04)
[2021-12-12] MEDS: Insulin LISPRO 300 UNITS/3 ML VIAL SUBQ SCH ×4 (08:56→20:50)
[2021-12-12] MEDS: Aspirin Enteric Coated 81 MG Tablet PO SCH (08:56)
[2021-12-12] MEDS: *HR* Enoxaparin 40 MG/0.4 ML SYRINGE SQ SCH ×2 (08:56→20:50)
[2021-12-12] MEDS: Cholecalciferol (D-3) 1,000 UNIT (25MCG) TABLET PO SCH (08:56)
[2021-12-12] MEDS: Clotrimazole 1% CRM 15 GM TUBE TP SCH ×2 (08:57→20:50)
[2021-12-12] MEDS: Insulin DETEMIR 100 UNIT/ML X5UNITS SUBQ SCH ×2 (09:04→20:50)
[2021-12-12] MEDS: QUEtiapine Fumarate 25 MG TABLET PO SCH (20:50)
[2021-12-13] MEDS: Budesonide/Formoterol 160/4.5 1 PUFF INH IH SCH ×2 (07:35→20:40)
[2021-12-13] MEDS: Clotrimazole 1% CRM 15 GM TUBE TP SCH ×2 (08:26→21:15)
[2021-12-13] MEDS: Cholecalciferol (D-3) 1,000 UNIT (25MCG) TABLET PO SCH (08:30)
[2021-12-13] MEDS: *HR* Enoxaparin 40 MG/0.4 ML SYRINGE SQ SCH ×2 (08:30→21:14)
[2021-12-13] MEDS: Insulin LISPRO 300 UNITS/3 ML VIAL SUBQ SCH ×4 (08:30→21:07)
[2021-12-13] MEDS: Insulin DETEMIR 100 UNIT/ML X5UNITS SUBQ SCH ×2 (08:30→21:14)
[2021-12-13] MEDS: Aspirin Enteric Coated 81 MG Tablet PO SCH (08:30)
[2021-12-13] MEDS: GuaiFENesin/Codeine Oral Soln 5 ML UDC PO PRN ×2 (12:03→21:14)
[2021-12-13 23:46] VITALS: BP 110/65; PULSE 92; TEMP 98.3; O2SAT 90
== END 2021-12-14 03:25 | disposition other institution (70) | DRG 871 ==
LOC: EMEROOARM 04:40 → ICNU 04:40 → SUATTDRO 07:29 → ICNU 08:18 → 2NNU 12-07 22:28 → 2NENU 12-09 20:11
PROVIDERS: ADMIT Internal Medicine; ATTEND Student in an Organized Health Care Education/Training Program

== ENCOUNTER 2021-12-27 12:32 | Inpatient (IN) ==
[2021-12-27] MEDS ORDERED: Naloxone 0.4 MG/ML INJ IVP PRN (14:40)
[2021-12-27] MEDS ORDERED: Acetaminophen 325 MG TABLET PO PRN (14:40)
[2021-12-27] MEDS ORDERED: Melatonin 3 MG TABLET PO PRN (14:40)
[2021-12-27] MEDS ORDERED: *HR* OxyCODONE Immed Rel 5 MG TABLET PO PRN (14:40)
[2021-12-27] MEDS ORDERED: Ondansetron 4 MG/2 ML VIAL IVP PRN (14:40)
[2021-12-27] MEDS ORDERED: *HR* Heparin 5,000 UNIT/ML VIAL IVP PRN (15:28)
[2021-12-27] MEDS ORDERED: Albuterol 2.5 MG/3 ML NEBULIZER IH PRN (15:44)
[2021-12-27] MEDS ORDERED: Nitroglycerin 0.4 MG TAB.SUBL SL PRN (15:44)
[2021-12-27] MEDS ORDERED: Perflutren Lipid Microsphere 1.3 ML in 0.9 % Sodium Chloride 8.7 ML IVP PRN (16:09)
[2021-12-27] MEDS: levoFLOXacin 750 MG/150 ML 750 MG/150 ML BAG IVPB SCH (16:29)
[2021-12-27] MEDS: Ipratropium/Albuterol Neb 3 ML IH SCH ×2 (16:31→20:41)
[2021-12-27] MEDS ORDERED: Dextrose Gel 15 GM/37.5 ML TUBE PO PRN ×2 (17:30)
[2021-12-27] MEDS ORDERED: D5% in Water 1,000 ML IVC PRN (17:30)
[2021-12-27] MEDS ORDERED: *HR* Dextrose 50 % in Water (Syg) 50 ML SYRINGE IVP PRN (17:30)
[2021-12-27] MEDS: Vancomycin 1,500 MG/265 ML IV.SOLN IVPB SCH (18:05)
[2021-12-27] MEDS: Heparin 25,000UNIT/250ML 1/2NS 25,000 UNIT/250 ML IV.SOLN IVC SCH (18:06)
[2021-12-27] MEDS: Piperacillin/Tazobactam 3.375 GM in 0.9 % Sodium Chloride Mini Bag 100 ML IVPB SCH (18:06)
[2021-12-27] MEDS: carvediloL 6.25 MG TABLET PO SCH (18:15)
[2021-12-27] MEDS: Insulin LISPRO 300 UNITS/3 ML VIAL SUBQ SCH ×2 (18:15→20:37)
[2021-12-27] MEDS: Budesonide/Formoterol 160/4.5 1 PUFF INH IH SCH (20:41)
[2021-12-27] MEDS: Furosemide 80 MG in 0.9 % Sodium Chloride 50 ML IV SCH (20:48)
[2021-12-27] MEDS: Insulin DETEMIR 100 UNIT/ML X5UNITS SUBQ SCH (20:48)
[2021-12-27] MEDS: Benzonatate 100 MG CAPSULE PO SCH (20:48)
[2021-12-27] MEDS: Dorzolamide OPTH 10 ML BOTTLE LEFT EYE SCH (20:49)
[2021-12-28] MEDS: Piperacillin/Tazobactam 3.375 GM in 0.9 % Sodium Chloride Mini Bag 100 ML IVPB SCH ×2 (00:03→09:00)
[2021-12-28 00:25] LABS: Hematocrit 37.7 % (37.5-50.1); Hemoglobin 11.7 g/dL (12.9-16.9); Mean Corpuscular Hemoglobin 26.8 pg (28.0-33.3); Mean Corpuscular Volume 86.3 fL (83.0-100.0); Mean Platelet Volume 10.3 fL (9.4-12.4); Platelet Count 206 K/mcL (140-400); Red Blood Count 4.37 M/mcL (4.19-5.50); Red Cell Distribution Width 18.2 % (11.5-14.5); White Blood Count 18.6 K/mcL (4.3-11.1)
[2021-12-28 00:44] LABS: BUN/Creatinine Ratio 19 (6-26); Blood Urea Nitrogen 20 mg/dL (8-23); Calcium 8.3 mg/dL (8.6-10.3); Carbon Dioxide 32 mEq/L (23-29); Chloride 97 mEq/L (98-107); Glucose 204 mg/dL (70-105); Osmolality,Calculated 288 (280-300); Potassium 3.6 mEq/L (3.5-5.1); Sodium 135 mEq/L (136-145); eGFR For African Americans > 60 (> 60); eGFR For Non-African Americans > 60 (> 60)
[2021-12-28] MEDS: *HR* Heparin 5,000 UNIT/ML VIAL IVP PRN ×2 (00:52→07:51)
[2021-12-28 01:08] LABS: Anisocytosis 1+ (Not Present); Lymphocytes # 1.9 K/mcL (0.6-4.6); Monocytes # 1.5 K/mcL (0.0-1.3); Neutrophils # 15.3 K/mcL (1.6-8.9); Platelet Estimate Normal (Normal); Reactive Lymphocytes Present (Not Present)
[2021-12-28] MEDS: Ipratropium/Albuterol Neb 3 ML IH SCH ×4 (03:54→20:58)
[2021-12-28] MEDS: Vancomycin 1,500 MG/265 ML IV.SOLN IVPB SCH ×2 (04:37→15:28)
[2021-12-28] MEDS ORDERED: Albumin 25% 12.5gm/50mL 12.5 GM/50 ML IV.SOLN IVPB ONE (06:47)
[2021-12-28] MEDS: carvediloL 6.25 MG TABLET PO SCH ×2 (07:29→16:36)
[2021-12-28] MEDS: Benzonatate 100 MG CAPSULE PO SCH ×3 (07:29→20:43)
[2021-12-28] MEDS: Dorzolamide OPTH 10 ML BOTTLE LEFT EYE SCH ×3 (07:30→20:43)
[2021-12-28] MEDS: Insulin LISPRO 300 UNITS/3 ML VIAL SUBQ SCH ×4 (07:43→20:42)
[2021-12-28] MEDS: Aspirin Enteric Coated 81 MG Tablet PO SCH (07:51)
[2021-12-28 08:01] LABS: CTX-M ESBL Gene DETECTED (Not Detect)
[2021-12-28] MEDS: Budesonide/Formoterol 160/4.5 1 PUFF INH IH SCH ×2 (08:01→20:58)
[2021-12-28 08:02] LABS: IMP Carbapenem-Resist Gene Not Detected (Not Detect); NDM Carbapenem-Resist Gene Not Detected (Not Detect); OXA-48-like Carbap-Resist Gene Not Detected (Not Detect); VIM Carbapenem-Resist Gene Not Detected (Not Detect); blaKPC Carbapenem-Resist Gene Not Detected (Not Detect); mcr-1 Colistin-Resist Gene Not Detected (Not Detect)
[2021-12-28 08:03] LABS: A.calcoaceticus-baumannii cplx Not Detected (Not Detect); Bacteroides fragilis by PCR Not Detected (Not Detect); Enterobacter cloacae Cmplx PCR Not Detected (Not Detect); Enterococcus faecalis by PCR Not Detected (Not Detect); Enterococcus faecium by PCR Not Detected (Not Detect); Escherichia coli by PCR Not Detected (Not Detect); Klebs. pneumoniae group by PCR DETECTED (Not Detect); Klebsiella aerogenes by PCR Not Detected (Not Detect); Klebsiella oxytoca by PCR Not Detected (Not Detect); Staph epidermidis by PCR Not Detected (Not Detect); Staph lugdunensis by PCR Not Detected (Not Detect); Staphylococcus aureus by PCR Not Detected (Not Detect); Staphylococcus by PCR Not Detected (Not Detect); Streptococcus agalactiae(B)PCR Not Detected (Not Detect); Streptococcus by PCR Not Detected (Not Detect); Streptococcus pneumoniae PCR Not Detected (Not Detect); Streptococcus pyogenes (A) PCR Not Detected (Not Detect)
[2021-12-28 08:04] LABS: Candida albicans by PCR Not Detected (Not Detect); Candida auris by PCR Not Detected (Not Detect); Candida glabrata by PCR Not Detected (Not Detect); Candida krusei by PCR Not Detected (Not Detect); Candida parapsilosis by PCR Not Detected (Not Detect); Candida tropicalis by PCR Not Detected (Not Detect); Crypto. neoformans/gattii PCR Not Detected (Not Detect); Proteus by PCR Not Detected (Not Detect); Pseudomonas aeruginosa by PCR Not Detected (Not Detect); Salmonella species by PCR Not Detected (Not Detect); Serratia marcescens by PCR Not Detected (Not Detect); Stenotrophomonas maltophilia Not Detected (Not Detect)
[2021-12-28] MEDS: Furosemide 80 MG in 0.9 % Sodium Chloride 50 ML IV SCH ×2 (09:00→20:41)
[2021-12-28] MEDS: levoFLOXacin 750 MG/150 ML 750 MG/150 ML BAG IVPB SCH (09:43)
[2021-12-28] MEDS: Heparin 25,000UNIT/250ML 1/2NS 25,000 UNIT/250 ML IV.SOLN IVC SCH (11:30)
[2021-12-28] MEDS: dexAMETHasone 4 MG TABLET PO SCH (12:41)
[2021-12-28] MEDS: Ertapenem 1,000 MG in 0.9 % Sodium Chloride Mini Bag 100 ML IVPB SCH (13:56)
[2021-12-28] MEDS: Insulin DETEMIR 100 UNIT/ML X5UNITS SUBQ SCH (20:41)
[2021-12-28] MEDS: Apixaban 5 MG TABLET PO SCH (20:43)
[2021-12-29 03:46] LABS: Basophils # 0.1 K/mcL (0.0-0.2); Basophils % 0.3 %; Eosinophils % 0.2 %; Hematocrit 35.4 % (37.5-50.1); Immature Granulocytes % 3.2 % (0-4); Lymphocytes # 1.1 K/mcL (0.6-4.6); Lymphocytes % 6.6 %; Mean Corpuscular HGB Conc 31.1 g/dL (31.6-35.5); Mean Corpuscular Hemoglobin 27.1 pg (28.0-33.3); Mean Corpuscular Volume 87.2 fL (83.0-100.0); Mean Platelet Volume 10.5 fL (9.4-12.4); Monocytes # 1.1 K/mcL (0.0-1.3); Monocytes % 6.5 %; Neutrophils # 14.2 K/mcL (1.6-8.9); Nucleated Red Blood Cells 0.2 /100 WBC (0); Platelet Count 196 K/mcL (140-400); Red Blood Count 4.06 M/mcL (4.19-5.50); Red Cell Distribution Width 17.9 % (11.5-14.5); Segmented Neutrophils % 83.2 %; White Blood Count 17.1 K/mcL (4.3-11.1)
[2021-12-29 04:03] LABS: BUN/Creatinine Ratio 17 (6-26); Blood Urea Nitrogen 16 mg/dL (8-23); Calcium 8.7 mg/dL (8.6-10.3); Carbon Dioxide 33 mEq/L (23-29); Chloride 95 mEq/L (98-107); Glucose 199 mg/dL (70-105); Osmolality,Calculated 285 (280-300); Potassium 3.7 mEq/L (3.5-5.1); Sodium 134 mEq/L (136-145); eGFR For African Americans > 60 (> 60); eGFR For Non-African Americans > 60 (> 60)
[2021-12-29 04:05] LABS: Chol/HDL Ratio 4.8 (0-4.9)
[2021-12-29] MEDS: Ipratropium/Albuterol Neb 3 ML IH SCH ×4 (04:09→19:47)
[2021-12-29] MEDS: Vancomycin 1,500 MG/265 ML IV.SOLN IVPB SCH (04:22)
[2021-12-29 04:55] LABS: Thyroid Stimulating Hormone 0.684 mcIU/mL (0.340-5.600)
[2021-12-29] MEDS: Vancomycin 2,000 MG/520 ML IV.SOLN IVPB SCH ×2 (05:17→16:06)
[2021-12-29] MEDS: Apixaban 5 MG TABLET PO SCH ×2 (08:06→20:57)
[2021-12-29] MEDS: dexAMETHasone 4 MG TABLET PO SCH (08:06)
[2021-12-29] MEDS: carvediloL 6.25 MG TABLET PO SCH ×2 (08:08→16:07)
[2021-12-29] MEDS: Benzonatate 100 MG CAPSULE PO SCH ×3 (08:08→20:57)
[2021-12-29] MEDS: Aspirin Enteric Coated 81 MG Tablet PO SCH (08:08)
[2021-12-29] MEDS: Furosemide 80 MG in 0.9 % Sodium Chloride 50 ML IV SCH ×2 (08:09→20:58)
[2021-12-29] MEDS: Insulin LISPRO 300 UNITS/3 ML VIAL SUBQ SCH ×4 (08:10→20:58)
[2021-12-29] MEDS: Dorzolamide OPTH 10 ML BOTTLE LEFT EYE SCH ×3 (08:11→20:56)
[2021-12-29] MEDS: Budesonide/Formoterol 160/4.5 1 PUFF INH IH SCH ×2 (09:11→19:47)
[2021-12-29] MEDS: Ertapenem 1,000 MG in 0.9 % Sodium Chloride Mini Bag 100 ML IVPB SCH (13:47)
[2021-12-29] MEDS: Insulin DETEMIR 100 UNIT/ML X5UNITS SUBQ SCH (20:59)
[2021-12-30] MEDS: Ipratropium/Albuterol Neb 3 ML IH SCH ×4 (03:38→19:46)
[2021-12-30] MEDS: Vancomycin 2,000 MG/520 ML IV.SOLN IVPB SCH ×2 (05:24→17:06)
[2021-12-30 05:46] LABS: Basophils # 0.1 K/mcL (0.0-0.2); Basophils % 0.4 %; Hematocrit 36.3 % (37.5-50.1); Hemoglobin 11.3 g/dL (12.9-16.9); Immature Granulocytes % 3.2 % (0-4); Lymphocytes # 1.2 K/mcL (0.6-4.6); Lymphocytes % 6.8 %; Mean Corpuscular HGB Conc 31.1 g/dL (31.6-35.5); Mean Corpuscular Hemoglobin 26.7 pg (28.0-33.3); Mean Corpuscular Volume 85.8 fL (83.0-100.0); Mean Platelet Volume 10.6 fL (9.4-12.4); Monocytes # 1.3 K/mcL (0.0-1.3); Monocytes % 7.8 %; Neutrophils # 13.9 K/mcL (1.6-8.9); Nucleated Red Blood Cells 0.5 /100 WBC (0); Platelet Count 237 K/mcL (140-400); Red Blood Count 4.23 M/mcL (4.19-5.50); Red Cell Distribution Width 18.1 % (11.5-14.5); Segmented Neutrophils % 81.8 %
[2021-12-30 06:04] LABS: BUN/Creatinine Ratio 20 (6-26); Blood Urea Nitrogen 19 mg/dL (8-23); Calcium 9.1 mg/dL (8.6-10.3); Carbon Dioxide 34 mEq/L (23-29); Chloride 93 mEq/L (98-107); Glucose 255 mg/dL (70-105); Osmolality,Calculated 289 (280-300); Potassium 3.7 mEq/L (3.5-5.1); Sodium 134 mEq/L (136-145); eGFR For African Americans > 60 (> 60); eGFR For Non-African Americans > 60 (> 60)
[2021-12-30] MEDS: Insulin LISPRO 300 UNITS/3 ML VIAL SUBQ SCH ×4 (07:58→21:08)
[2021-12-30] MEDS: dexAMETHasone 4 MG TABLET PO SCH (07:59)
[2021-12-30] MEDS: Aspirin Enteric Coated 81 MG Tablet PO SCH (08:00)
[2021-12-30] MEDS: carvediloL 6.25 MG TABLET PO SCH ×2 (08:01→17:06)
[2021-12-30] MEDS: Apixaban 5 MG TABLET PO SCH ×2 (08:01→21:07)
[2021-12-30] MEDS: Benzonatate 100 MG CAPSULE PO SCH ×3 (08:02→21:07)
[2021-12-30] MEDS: Dorzolamide OPTH 10 ML BOTTLE LEFT EYE SCH ×3 (08:03→21:06)
[2021-12-30] MEDS: Furosemide 80 MG in 0.9 % Sodium Chloride 50 ML IV SCH ×2 (08:04→21:10)
[2021-12-30] MEDS: Budesonide/Formoterol 160/4.5 1 PUFF INH IH SCH ×2 (08:28→19:46)
[2021-12-30] MEDS: Ertapenem 1,000 MG in 0.9 % Sodium Chloride Mini Bag 100 ML IVPB SCH (13:44)
[2021-12-30] MEDS: Insulin DETEMIR 100 UNIT/ML X5UNITS SUBQ SCH (21:10)
[2021-12-30] MEDS ORDERED: Desitin (Zinc Oxide) 56 GM TUBE TP PRN (21:31)
[2021-12-31] MEDS: Ipratropium/Albuterol Neb 3 ML IH SCH ×4 (03:42→19:42)
[2021-12-31] MEDS: Vancomycin 2,000 MG/520 ML IV.SOLN IVPB SCH ×2 (05:05→16:28)
[2021-12-31 05:39] LABS: Basophils # 0.1 K/mcL (0.0-0.2); Basophils % 0.6 %; Hematocrit 35.1 % (37.5-50.1); Hemoglobin 10.9 g/dL (12.9-16.9); Immature Granulocytes % 3.9 % (0-4); Lymphocytes # 1.4 K/mcL (0.6-4.6); Lymphocytes % 9.3 %; Mean Corpuscular HGB Conc 31.1 g/dL (31.6-35.5); Mean Corpuscular Hemoglobin 26.8 pg (28.0-33.3); Mean Corpuscular Volume 86.2 fL (83.0-100.0); Mean Platelet Volume 10.9 fL (9.4-12.4); Monocytes # 1.5 K/mcL (0.0-1.3); Monocytes % 10.5 %; Platelet Count 263 K/mcL (140-400); Red Blood Count 4.07 M/mcL (4.19-5.50); Red Cell Distribution Width 18.1 % (11.5-14.5); Segmented Neutrophils % 75.7 %; White Blood Count 14.5 K/mcL (4.3-11.1)
[2021-12-31 05:56] LABS: BUN/Creatinine Ratio 23 (6-26); Blood Urea Nitrogen 23 mg/dL (8-23); Calcium 8.9 mg/dL (8.6-10.3); Carbon Dioxide 36 mEq/L (23-29); Chloride 93 mEq/L (98-107); Glucose 191 mg/dL (70-105); Osmolality,Calculated 293 (280-300); Potassium 3.4 mEq/L (3.5-5.1); Sodium 137 mEq/L (136-145); eGFR For African Americans > 60 (> 60); eGFR For Non-African Americans > 60 (> 60)
[2021-12-31] MEDS ORDERED: Magnesium Sulfate 1 GM/102 ML PIGGYBACK IVPB ONE (07:26)
[2021-12-31] MEDS: Budesonide/Formoterol 160/4.5 1 PUFF INH IH SCH ×2 (07:36→19:43)
[2021-12-31] MEDS: Insulin LISPRO 300 UNITS/3 ML VIAL SUBQ SCH ×3 (07:59→16:29)
[2021-12-31] MEDS: Apixaban 5 MG TABLET PO SCH ×2 (08:00→20:25)
[2021-12-31] MEDS: dexAMETHasone 4 MG TABLET PO SCH (08:00)
[2021-12-31] MEDS: Benzonatate 100 MG CAPSULE PO SCH ×3 (08:01→20:25)
[2021-12-31] MEDS: carvediloL 6.25 MG TABLET PO SCH ×2 (08:01→16:28)
[2021-12-31] MEDS: Furosemide 80 MG in 0.9 % Sodium Chloride 50 ML IV SCH ×2 (08:01→20:23)
[2021-12-31] MEDS: Aspirin Enteric Coated 81 MG Tablet PO SCH (08:02)
[2021-12-31] MEDS: Dorzolamide OPTH 10 ML BOTTLE LEFT EYE SCH ×3 (09:07→20:26)
[2021-12-31] MEDS: Ertapenem 1,000 MG in 0.9 % Sodium Chloride Mini Bag 100 ML IVPB SCH (13:14)
[2021-12-31] MEDS ORDERED: Ergocalciferol (VIT D2) 50,000 UNIT (1.25MG) CAP PO SCH (15:44)
[2022-01-01] MEDS: Insulin LISPRO 300 UNITS/3 ML VIAL SUBQ SCH ×5 (01:39→20:16)
[2022-01-01] MEDS: Insulin DETEMIR 100 UNIT/ML X5UNITS SUBQ SCH ×2 (01:39→20:15)
[2022-01-01] MEDS: Ipratropium/Albuterol Neb 3 ML IH SCH ×4 (03:37→20:31)
[2022-01-01] MEDS: Vancomycin 2,000 MG/520 ML IV.SOLN IVPB SCH ×2 (05:07→17:29)
[2022-01-01 05:23] LABS: BUN/Creatinine Ratio 29 (6-26); Blood Urea Nitrogen 27 mg/dL (8-23); Calcium 9.3 mg/dL (8.6-10.3); Carbon Dioxide 37 mEq/L (23-29); Chloride 93 mEq/L (98-107); Glucose 213 mg/dL (70-105); Magnesium 1.9 mg/dL (1.6-2.6); Osmolality,Calculated 297 (280-300); Potassium 3.6 mEq/L (3.5-5.1); Sodium 138 mEq/L (136-145); eGFR For African Americans > 60 (> 60); eGFR For Non-African Americans > 60 (> 60)
[2022-01-01] MEDS: Budesonide/Formoterol 160/4.5 1 PUFF INH IH SCH ×2 (07:14→20:31)
[2022-01-01] MEDS: carvediloL 6.25 MG TABLET PO SCH ×2 (07:16→16:03)
[2022-01-01] MEDS: Aspirin Enteric Coated 81 MG Tablet PO SCH (07:16)
[2022-01-01] MEDS: dexAMETHasone 4 MG TABLET PO SCH ×2 (07:16→07:29)
[2022-01-01] MEDS: Apixaban 5 MG TABLET PO SCH ×2 (07:16→20:15)
[2022-01-01] MEDS: Benzonatate 100 MG CAPSULE PO SCH ×3 (07:17→20:15)
[2022-01-01] MEDS: Dorzolamide OPTH 10 ML BOTTLE LEFT EYE SCH ×3 (07:20→20:16)
[2022-01-01 11:27] LABS: VBG HCO3 37 mEq/L (21-27); VBG PCO2 64 mmHg (41-51); VBG PH 7.37 pH Units (7.32-7.42); VBG PO2 78 mmHg (25-50)
[2022-01-01] MEDS: Ertapenem 1,000 MG in 0.9 % Sodium Chloride Mini Bag 100 ML IVPB SCH (14:46)
[2022-01-01] MEDS: Furosemide 40 MG/4 ML VIAL IVP SCH (14:47)
[2022-01-01 16:29] LABS: Basophils # 0.1 K/mcL (0.0-0.2); Basophils % 0.6 %; Eosinophils % 0.1 %; Hematocrit 36.8 % (37.5-50.1); Hemoglobin 11.7 g/dL (12.9-16.9); Immature Granulocytes % 4.6 % (0-4); Lymphocytes # 1.5 K/mcL (0.6-4.6); Lymphocytes % 9.6 %; Mean Corpuscular HGB Conc 31.8 g/dL (31.6-35.5); Mean Corpuscular Hemoglobin 26.8 pg (28.0-33.3); Mean Corpuscular Volume 84.4 fL (83.0-100.0); Mean Platelet Volume 10.4 fL (9.4-12.4); Monocytes % 6.3 %; Neutrophils # 12.4 K/mcL (1.6-8.9); Platelet Count 294 K/mcL (140-400); Red Blood Count 4.36 M/mcL (4.19-5.50); Segmented Neutrophils % 78.8 %; White Blood Count 15.8 K/mcL (4.3-11.1)
[2022-01-01] MEDS: Vancomycin 1,750 MG/517.5 ML IV.SOLN IVPB SCH (18:24)
[2022-01-02 00:41] LABS: Basophils # 0.1 K/mcL (0.0-0.2); Basophils % 0.5 %; Eosinophils % 0.2 %; Hematocrit 35.8 % (37.5-50.1); Hemoglobin 11.2 g/dL (12.9-16.9); Immature Granulocytes % 4.3 % (0-4); Lymphocytes % 12.7 %; Mean Corpuscular HGB Conc 31.3 g/dL (31.6-35.5); Mean Corpuscular Hemoglobin 26.8 pg (28.0-33.3); Mean Corpuscular Volume 85.6 fL (83.0-100.0); Mean Platelet Volume 10.1 fL (9.4-12.4); Monocytes # 1.3 K/mcL (0.0-1.3); Monocytes % 7.9 %; Neutrophils # 11.9 K/mcL (1.6-8.9); Platelet Count 282 K/mcL (140-400); Red Blood Count 4.18 M/mcL (4.19-5.50); Segmented Neutrophils % 74.4 %
[2022-01-02 01:06] LABS: BUN/Creatinine Ratio 29 (6-26); Blood Urea Nitrogen 25 mg/dL (8-23); Calcium 8.8 mg/dL (8.6-10.3); Carbon Dioxide 40 mEq/L (23-29); Chloride 96 mEq/L (98-107); Glucose 146 mg/dL (70-105); Osmolality,Calculated 297 (280-300); Potassium 3.6 mEq/L (3.5-5.1); Sodium 140 mEq/L (136-145); eGFR For African Americans > 60 (> 60); eGFR For Non-African Americans > 60 (> 60)
[2022-01-02] MEDS: Ipratropium/Albuterol Neb 3 ML IH SCH ×4 (04:36→20:40)
[2022-01-02] MEDS: Vancomycin 1,750 MG/517.5 ML IV.SOLN IVPB SCH (05:17)
[2022-01-02] MEDS: Budesonide/Formoterol 160/4.5 1 PUFF INH IH SCH ×2 (07:31→20:40)
[2022-01-02] MEDS: Insulin LISPRO 300 UNITS/3 ML VIAL SUBQ SCH ×4 (07:48→20:01)
[2022-01-02] MEDS: dexAMETHasone 4 MG TABLET PO SCH (07:48)
[2022-01-02] MEDS: Benzonatate 100 MG CAPSULE PO SCH ×3 (07:49→20:12)
[2022-01-02] MEDS: carvediloL 6.25 MG TABLET PO SCH ×2 (07:49→16:56)
[2022-01-02] MEDS: Dorzolamide OPTH 10 ML BOTTLE LEFT EYE SCH ×3 (07:50→20:12)
[2022-01-02] MEDS: Furosemide 40 MG/4 ML VIAL IVP SCH ×2 (07:50→16:56)
[2022-01-02] MEDS: Aspirin Enteric Coated 81 MG Tablet PO SCH (07:51)
[2022-01-02] MEDS: Apixaban 5 MG TABLET PO SCH ×2 (07:51→20:12)
[2022-01-02 09:32] LABS: Estimated Average Glucose 203 mg/dl; Hemoglobin A1C 8.7 %
[2022-01-02] MEDS: Ertapenem 1,000 MG in 0.9 % Sodium Chloride Mini Bag 100 ML IVPB SCH (13:53)
[2022-01-02] MEDS: Vancomycin 1,500 MG/265 ML IV.SOLN IVPB SCH (16:56)
[2022-01-03] MEDS: Ipratropium/Albuterol Neb 3 ML IH SCH ×4 (04:04→20:22)
[2022-01-03 04:44] LABS: Basophils % 0.3 %; Eosinophils # 0.1 K/mcL (0.0-0.6); Eosinophils % 0.5 %; Hematocrit 35.2 % (37.5-50.1); Hemoglobin 11.2 g/dL (12.9-16.9); Immature Granulocytes % 2.8 % (0-4); Lymphocytes # 2.2 K/mcL (0.6-4.6); Lymphocytes % 14.3 %; Mean Corpuscular HGB Conc 31.8 g/dL (31.6-35.5); Mean Corpuscular Hemoglobin 27.6 pg (28.0-33.3); Mean Corpuscular Volume 86.7 fL (83.0-100.0); Monocytes # 0.9 K/mcL (0.0-1.3); Monocytes % 5.5 %; Neutrophils # 11.9 K/mcL (1.6-8.9); Platelet Count 275 K/mcL (140-400); Red Blood Count 4.06 M/mcL (4.19-5.50); Red Cell Distribution Width 17.4 % (11.5-14.5); Segmented Neutrophils % 76.6 %; White Blood Count 15.6 K/mcL (4.3-11.1)
[2022-01-03 04:58] LABS: BUN/Creatinine Ratio 27 (6-26); Blood Urea Nitrogen 24 mg/dL (8-23); Calcium 8.5 mg/dL (8.6-10.3); Carbon Dioxide 38 mEq/L (23-29); Chloride 94 mEq/L (98-107); Glucose 169 mg/dL (70-105); Osmolality,Calculated 292 (280-300); Potassium 3.4 mEq/L (3.5-5.1); Sodium 137 mEq/L (136-145); eGFR For African Americans > 60 (> 60); eGFR For Non-African Americans > 60 (> 60)
[2022-01-03] MEDS: Vancomycin 1,500 MG/265 ML IV.SOLN IVPB SCH ×2 (05:14→17:06)
[2022-01-03] MEDS: Budesonide/Formoterol 160/4.5 1 PUFF INH IH SCH ×2 (07:30→20:21)
[2022-01-03] MEDS: Furosemide 40 MG/4 ML VIAL IVP SCH ×2 (07:51→17:04)
[2022-01-03] MEDS: Benzonatate 100 MG CAPSULE PO SCH ×3 (07:52→20:52)
[2022-01-03] MEDS: dexAMETHasone 4 MG TABLET PO SCH (07:52)
[2022-01-03] MEDS: Aspirin Enteric Coated 81 MG Tablet PO SCH (07:52)
[2022-01-03] MEDS: Insulin LISPRO 300 UNITS/3 ML VIAL SUBQ SCH ×4 (07:53→20:53)
[2022-01-03] MEDS: Apixaban 5 MG TABLET PO SCH ×2 (07:53→20:52)
[2022-01-03] MEDS: carvediloL 6.25 MG TABLET PO SCH ×2 (07:53→17:04)
[2022-01-03] MEDS: Dorzolamide OPTH 10 ML BOTTLE LEFT EYE SCH ×3 (07:54→20:53)
[2022-01-03] MEDS: Ertapenem 1,000 MG in 0.9 % Sodium Chloride Mini Bag 100 ML IVPB SCH (13:47)
[2022-01-04] MEDS: Ipratropium/Albuterol Neb 3 ML IH SCH ×2 (04:18→07:40)
[2022-01-04 06:25] LABS: Vancomycin,Trough 21 mcg/mL (5-10)
[2022-01-04] MEDS: Apixaban 5 MG TABLET PO SCH (07:34)
[2022-01-04] MEDS: Benzonatate 100 MG CAPSULE PO SCH (07:34)
[2022-01-04] MEDS: Furosemide 40 MG/4 ML VIAL IVP SCH (07:34)
[2022-01-04] MEDS: carvediloL 6.25 MG TABLET PO SCH (07:35)
[2022-01-04] MEDS: Aspirin Enteric Coated 81 MG Tablet PO SCH (07:36)
[2022-01-04] MEDS: dexAMETHasone 4 MG TABLET PO SCH (07:36)
[2022-01-04] MEDS: Dorzolamide OPTH 10 ML BOTTLE LEFT EYE SCH (07:37)
[2022-01-04] MEDS: Budesonide/Formoterol 160/4.5 1 PUFF INH IH SCH (07:39)
[2022-01-04] MEDS: Insulin LISPRO 300 UNITS/3 ML VIAL SUBQ SCH ×2 (09:13→11:33)
[2022-01-04 10:04] LABS: eGFR For African Americans > 60 (> 60); eGFR For Non-African Americans > 60 (> 60)
[2022-01-04 11:32] VITALS: BP 133/103; PULSE 69; TEMP 97.4; O2SAT 94
[2022-01-04] MEDS: Ertapenem 1,000 MG in 0.9 % Sodium Chloride Mini Bag 100 ML IVPB SCH (11:32)
[2022-01-04] MEDS ORDERED: Vancomycin 1,500 MG/265 ML IV.SOLN IVPB SCH (17:00)
== END 2022-01-04 15:28 | disposition home health service (06) | DRG 871 ==
LOC: 2NENU 14:08 → SUATTDRO 14:08
PROVIDERS: ADMIT Family Medicine; ATTEND Internal Medicine